=== PATIENT | female | born 1930 | race Caucasian/White ===

== ENCOUNTER 2018-05-23 07:35 | Inpatient (IN) | payer OTHER ==
--- NOTE | 2018-05-23 07:47 | PDOC ---
History of Present Illness - General Chief Complaint: SIRS, Suspected/Possible Stated Complaint: FEVER Time Seen by Provider: 05/23/18 07:35 - History of Present Illness Initial Comments: 05/23/18 07:49 Ms. Steele is an 87 yo female w/ pmh of CAD, anemia, dementia (nonverbal at baseline), HTN, HLD, who presents for evaluation of subjective fevers at home and increased respiratory rate. Family reports they noticed patient to be increasingly agitated last week prompting them to see evaluation from patient's PCP (Dr. Harrington). Patient was noted to have UTI and started on macrobid BID . Patient presents today as fevers have continued and today they noticed her breathing rate to increase. The patient denies chest pain, shortness of breath, headache and dizziness. Denies fever, chills, nausea, vomit, diarrhea and constipation. Past History - Past Medical History Allergies/Adverse Reactions: Allergies Allergy/AdvReac Type Severity Reaction Status Date / Time No Known Allergies Allergy Verified 12/30/15 20:40 Home Medications: Ambulatory Orders Metoprolol Succinate [Toprol XL -] 25 mg PO DAILY 01/15/14 Alprazolam 0.5 mg PO TID 12/30/15 Levetiracetam [Keppra] 500 mg PO BID 12/30/15 Nystatin Cream [Mycostatin Cream -] 1 applic TP BID #60 grams 01/01/16 levETIRAcetam [Keppra -] 250 mg PO BID #180 tablet 01/01/16 Anemia: Yes Cardiac Disorders: Yes Dementia: Yes GI Disorders: Yes Disorders: Yes (UTI 02/12/13) HTN: Yes Hypercholesterolemia: Yes Seizures: Yes - Surgical History Abdominal Surgery: Yes GI Surgery: Yes (reversal of colostomy in 2006) - Immunization History Td Vaccination: Yes Immunization Up to Date: Yes - Suicide/Smoking/Psychosocial Hx Smoking Status: No Smoking History: Never smoked Years of Tobacco Use: 0 Have you smoked in the past 12 months: No Number of Cigarettes Smoked Daily: 0 Cigars Per Day: 0 Hx Alcohol Use: No Drug/Substance Use Hx: No Substance Use Type: None Hx Substance Use Treatment: No Review of Systems - Review of Systems Comments:: 05/23/18 08:03 GENERAL/CONSTITUTIONAL: +Generalized agitation with fever as described. No weakness. HEAD, EYES, EARS, NOSE AND THROAT: No change in vision. No ear pain or discharge. No sore throat. CARDIOVASCULAR: No chest pain or shortness of breath RESPIRATORY: +Increased respiratory rate. No cough, wheezing, or hemoptysis. GASTROINTESTINAL: No nausea, vomiting, diarrhea or constipation. GENITOURINARY: No dysuria, frequency, or change in urination. MUSCULOSKELETAL: No joint or muscle swelling or pain. No neck or back pain. SKIN: No rash NEUROLOGIC: No headache, vertigo, loss of consciousness, or change in strength/ sensation. ENDOCRINE: No increased thirst. No abnormal weight change HEMATOLOGIC/LYMPHATIC: No anemia, easy bleeding, or history of blood clots. ALLERGIC/IMMUNOLOGIC: No hives or skin allergy. *Physical Exam - Physical Exam Comments: 05/23/18 08:05 GENERAL: +Mildly agitated. Awake and oriented, in no acute distress HEAD: No signs of trauma, normocephalic, atraumatic EYES: PERRLA, EOMI, sclera anicteric, conjunctiva clear ENT: Auricles normal inspection, hearing grossly normal, nares patent, oropharynx clear without exudates. Moist mucosa NECK: Normal ROM, supple, no lymphadenopathy, JVD, or masses LUNGS: No distress, speaks full sentences, clear to auscultation bilaterally HEART: Regular rate and rhythm, normal S1 and S2, no murmurs, rubs or gallops, peripheral pulses normal and equal bilaterally. ABDOMEN: Soft, nontender, normoactive bowel sounds. No guarding, no rebound. No masses EXTREMITIES: Normal inspection, Normal range of motion, no edema. No clubbing or cyanosis. NEUROLOGICAL: +Unable to assess. SKIN: Warm, Dry, normal turgor, no rashes or lesions noted. ED Treatment Course - LABORATORY CBC & Chemistry Diagram: 05/23/18 08:30 05/23/18 08:30 Medical Decision Making - Medical Decision Making 05/23/18 09:02 Ms. Steele is an 87 yo female w/ pmh as described who presents for evaluation of symptoms concerning for sepsis. 05/23/18 10:57 Workup reveals elevated lactate; patient septic; receiving IV hydration. Vanc/ Zosyn given for prophylaxis. 05/23/18 11:09 Labs otherwise grossly wnl. Patient pending repeat lactate. Patient admitted for further hydration and IV ABX. Laboratory Results - last 24 hr 05/23/18 05/23/18 05/23/18 08:30 08:30 08:30 WBC 7.9 RBC 4.42 Hgb 12.9 Hct 37.8 MCV 85.4 MCH 29.2 MCHC 34.2 RDW 13.3 Plt Count 184 MPV 8.2 D Absolute Neuts (auto) 6.6 Neutrophils % 83.8 H Lymphocytes % 6.4 L D Monocytes % 8.6 Eosinophils % 1.0 D Basophils % 0.2 Nucleated RBC % 0 PT with INR INR PTT (Actin FS) VBG pH 7.36 POC VBG pCO2 43.3 POC VBG pO2 22.2 L Mixed VBG HCO3 23.6 Sodium 134 L Potassium 4.6 Chloride 101 Carbon Dioxide 23 Anion Gap 10 BUN 22 H Creatinine 1.1 Creat Clearance w eGFR 47.09 Random Glucose 106 Lactic Acid Calcium 8.5 Total Bilirubin 0.7 AST 28 ALT 21 Alkaline Phosphatase 113 Troponin I < 0.02 Total Protein 6.8 Albumin 2.8 L Urine Color Urine Appearance Urine pH Ur Specific [place] Urine Protein Urine Glucose (UA) Urine Ketones Urine Blood Urine Nitrite Urine Bilirubin Urine Urobilinogen Ur Leukocyte Esterase Urine WBC (Auto) Urine RBC (Auto) Ur Epithelial Cells Urine Bacteria Hyaline Casts Urine Mucus 05/23/18 05/23/18 05/23/18 08:30 08:30 08:30 WBC RBC Hgb Hct MCV MCH MCHC RDW Plt Count MPV Absolute Neuts (auto) Neutrophils % Lymphocytes % Monocytes % Eosinophils % Basophils % Nucleated RBC % PT with INR 12.20 INR 1.03 PTT (Actin FS) 25.6 VBG pH POC VBG pCO2 POC VBG pO2 Mixed VBG HCO3 Sodium Potassium Chloride Carbon Dioxide Anion Gap BUN Creatinine Creat Clearance w eGFR Random Glucose Lactic Acid 2.6 H* Calcium Total Bilirubin AST ALT Alkaline Phosphatase Troponin I Total Protein Albumin Urine Color Dk yellow Urine Appearance Cloudy Urine pH 5.0 Ur Specific [place] 1.016 Urine Protein Negative Urine Glucose (UA) Negative Urine Ketones Negative Urine Blood Negative Urine Nitrite Negative Urine Bilirubin Negative Urine Urobilinogen Negative Ur Leukocyte Esterase Trace Urine WBC (Auto) 5 Urine RBC (Auto) 2 Ur Epithelial Cells Few Urine Bacteria Rare Hyaline Casts 6 Urine Mucus Rare *DC/Admit/Observation/Transfer Diagnosis at time of Disposition: Sepsis Qualifiers: Sepsis type: sepsis due to unspecified organism Qualified Code(s): A41.9 - Sepsis, unspecified organism - Discharge Dispostion Decision to Admit order: Yes - Referrals - Patient Instructions - Post Discharge Activity
[2018-05-23] MEDS ORDERED: VANCOMYCIN 1 GM in D5W (PRE-DOCKED) 1,000 MG/250 ML IVPB ONE (07:48)
[2018-05-23] MEDS ORDERED: PIPERACILLIN/TAZOB 3.375 GM 3.375 GM in DEXTROSE 5%-WATER - 50 ML IVPB ONE (07:48)
--- NOTE | 2018-05-23 07:58 | PDOC ---
History of Present Illness - General Chief Complaint: SIRS, Suspected/Possible Stated Complaint: FEVER Time Seen by Provider: 05/23/18 07:35 Past History - Past Medical History Allergies/Adverse Reactions: Allergies Allergy/AdvReac Type Severity Reaction Status Date / Time No Known Allergies Allergy Verified 12/30/15 20:40 Home Medications: Ambulatory Orders Metoprolol Succinate [Toprol XL -] 25 mg PO DAILY 01/15/14 Alprazolam 0.5 mg PO TID 12/30/15 Levetiracetam [Keppra] 500 mg PO BID 12/30/15 Nystatin Cream [Mycostatin Cream -] 1 applic TP BID #60 grams 01/01/16 levETIRAcetam [Keppra -] 250 mg PO BID #180 tablet 01/01/16 Anemia: Yes Cardiac Disorders: Yes Dementia: Yes GI Disorders: Yes Disorders: Yes (UTI 02/12/13) HTN: Yes Hypercholesterolemia: Yes Seizures: Yes - Surgical History Abdominal Surgery: Yes GI Surgery: Yes (reversal of colostomy in 2006) - Immunization History Td Vaccination: Yes Immunization Up to Date: Yes - Suicide/Smoking/Psychosocial Hx Smoking Status: No Smoking History: Never smoked Years of Tobacco Use: 0 Have you smoked in the past 12 months: No Number of Cigarettes Smoked Daily: 0 Cigars Per Day: 0 Hx Alcohol Use: No Drug/Substance Use Hx: No Substance Use Type: None Hx Substance Use Treatment: No
--- NOTE | 2018-05-23 08:18 | PDOC ---
Attending Attestation - Resident Resident Name: Isaac Augustineorn - ED Attending Attestation I have performed the following: I have examined & evaluated the patient, The case was reviewed & discussed with the resident, I agree w/resident's findings & plan - HPI HPI: 05/23/18 08:14 87-year-old female with history of dementia, contractures and bedbound, seizures , frequent UTIs well cared for at home with last admission here in 2016 presents from home with UTI. Patient began becoming more irritable per family, labs and urinalysis were ordered by her PCP Dr. Harrington revealing a UTI. She was started on Macrobid and has completed 3 days but continued having measured fevers yesterday and having decreased to no oral intake with persistent malodorous urine so EMS was activated today. - Physicial Exam PE: 05/23/18 08:15 Low-grade fever, borderline tachycardia, borderline tachypnea, O2 sats otherwise within normal limits Alert, nonverbal, contractures. No respiratory distress. Oropharynx clear, dry mucosa Heart is regular with occasional premature beats, 2 to 3/6 systolic ejection murmur Course breath sounds at the bases, question right worse than left Suprapubic discomfort to palpation, otherwise soft/nondistended, no guarding or rebound No extremity swelling or cellulitis Good distal perfusion - Critical Care Time Total Critical Care Time: 30 Critical Care Statement: The care of this patient involved high complexity decision making to prevent further life threatening deterioration of the patient 's condition and/or to evaluate & treat vital organ system(s) failure or risk of failure. - Medical Decision Making 05/23/18 08:16 87-year-old female that bout with multiple medical problems and history of UTI recently diagnosed UTI failing outpatient oral antibiotics, here with sepsis/ borderline hypotension, likely secondary to UTI. Sepsis protocol initiated Antipyretics, IV fluids, antibiotics Will need admission given deviation from baseline and early sepsis Heart Score/ECG Review #1 ECG reviewed & interpreted by me at: 09:26 General ECG Interpretation: Sinus Rhythm (slight tachy at 109 with PACs noted), Normal Intervals (MI 210, qtc 460), No acute ischemic changes
[2018-05-23 09:02] LABS: VENOUS PC02 43.3 mmHg (38-52); VENOUS PH 7.36 (7.32-7.42); VENOUS PO2 22.2 mmHg (28-48)
[2018-05-23 09:11] LABS: BASO % 0.2 % (0-2.0); HEMATOCRIT 37.8 % (32.4-45.2); HEMOGLOBIN 12.9 GM/dL (10.7-15.3); LYMPH % 6.4 % (8-40); MCH 29.2 pg (25.7-33.7); MCHC 34.2 g/dl (32.0-36.0); MEAN CELL VOLUME 85.4 fl (80-96); MEAN PLT VOLUME 8.2 fl (7.5-11.1); MONO % 8.6 % (3.8-10.2); NEUT % 83.8 % (42.8-82.8); PLATELET COUNT 184 K/MM3 (134-434); RBC 4.42 M/mm3 (3.60-5.2); RDW 13.3 % (11.6-15.6); WHITE BLOOD COUNT 7.9 K/mm3 (4.0-10.0)
[2018-05-23] MEDS ORDERED: VANCOMYCIN 1 GRAM (PRE-DOCKED) 1,000 MG/250 ML BAG IVPB ONE (09:14)
[2018-05-23] MEDS ORDERED: PIPERACILLIN/TAZOB 3.375 GM 3.375 GM/50 ML BAG IVPB ONE (09:15)
[2018-05-23 09:20] LABS: INR 1.03 (0.83-1.09); PROTHROMBIN TIME (PATIENT) 12.2 SEC (9.7-13.0)
[2018-05-23 09:22] LABS: ACTIVATED PTT 25.6 SECONDS (25.2-36.5)
[2018-05-23 09:45] LABS: ALBUMIN 2.8 g/dl (3.4-5.0); ALK PHOS 113 U/L (45-117); ANION GAP 10 MMOL/L (8-16); BILIRUBIN,TOTAL 0.7 mg/dL (0.2-1); BLOOD UREA NITROGEN 22 mg/dL (7-18); CALCIUM 8.5 mg/dL (8.5-10.1); CHLORIDE 101 mmol/L (98-107); CO2 23 mmol/L (21-32); CREATININE 1.1 mg/dL (0.55-1.3); GLUCOSE,RANDOM 106 mg/dL (74-106); POTASSIUM 4.6 mmol/L (3.5-5.1); SGOT/AST 28 U/L (15-37); SGPT/ALT 21 U/L (13-61); SODIUM 134 mmol/L (136-145); TOT PROT 6.8 g/dl (6.4-8.2)
[2018-05-23 09:53] LABS: URINE APPEARANCE CLOUDY; URINE BILIRUBIN NEGATIVE (<2.0 mg/dL); URINE GLUCOSE (UA) NEGATIVE (NEGATIVE); URINE KETONE NEGATIVE (NEGATIVE); URINE LEUK ESTERASE TRACE (NEGATIVE); URINE NITRITE NEGATIVE (NEGATIVE); URINE PROTEIN NEGATIVE (NEGATIVE); URINE UROBILINOGEN NEGATIVE mg/dL (0.2-1.0)
[2018-05-23 09:58] LABS: URINE COLOR DK YELLOW
[2018-05-23] MEDS ORDERED: SODIUM CHLORIDE 1,000 ML IV STA (10:24)
[2018-05-23 10:27] LABS: EPI CELLS FEW /HPF (FEW); URINE BACTERIA RARE /hpf (NONE SEEN); URINE HYALINE CAST 6 /lpf; URINE MUCUS RARE
[2018-05-23] MEDS ORDERED: SODIUM CHLORIDE 1,000 ML IV SCH ×2 (11:45→21:17)
--- NOTE | 2018-05-23 11:51 | HP ---
Admitting History and Physical - Primary Care Physician PCP: Braden Harrington - Admission Chief Complaint: sepsis History of Present Illness: 87 year old female pmh of dementia, htn, hld,and seizure brought in from home for fevers. Pt gets routine blood work done every 4 months at home, pt was diagnosed with UTI outpt and started on macrobid by PCP on 05/20. UC outpt grew ecoli resistant to cipro/levaquin. DIAMOND WHEEL MOLDER reports noticing significantly reduced po intake, increased respiratory rate, fevers since yesterday. Pt is unable to provide history as she is non-verbal. 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 Cardiovascular: Yes: HTN, Hyperlipdemia Gastrointestinal: Yes: Diverticulitis Renal/: Yes: UTI Musculoskeletal: Yes: Other (All four extremities contracted) - Past Surgical History Past Surgical History: Yes: Colostomy ((Reversed)) - Smoking History Smoking history: Never smoked Have you smoked in the past 12 months: No Aproximately how many cigarettes per day: 0 - Alcohol/Substance Use Hx Alcohol Use: No History of Substance Use: reports: None - Social History ADL: Support Services History of Recent Travel: No Home Medications - Allergies Allergies/Adverse Reactions: Allergies Allergy/AdvReac Type Severity Reaction Status Date / Time No Known Allergies Allergy Verified 12/30/15 20:40 - Home Medications Home Medications: Ambulatory Orders Metoprolol Succinate [Toprol XL -] 25 mg PO BID 01/15/14 Alprazolam 0.5 mg PO TID 12/30/15 Nystatin Cream [Mycostatin Cream -] 1 applic TP BID #60 grams 01/01/16 Aspirin 81 mg PO DAILY 05/23/18 levETIRAcetam [Keppra -] 750 mg PO BID 05/23/18 Family Disease History - Family Disease History Family History: Unable to Obtain (2/2 dementia) Review of Systems Findings/Remarks: as per hpi Physical Examination Vital Signs: Vital Signs Temperature 99.8 F H 05/23/18 07:42 Pulse Rate 102 H 05/23/18 07:42 Respiratory Rate 22 H 05/23/18 07:42 Blood Pressure 91/55 L 05/23/18 07:42 O2 Sat by Pulse Oximetry (%) 98 05/23/18 07:42 Constitutional: Yes: Well Nourished, No Distress, Calm Cardiovascular: Yes: Regular Rate and Rhythm, Murmur Respiratory: Yes: Regular, CTA Bilaterally, On Nasal O2. No: Accessory Muscle Use, SOB, Tachypnea, Wheezes Gastrointestinal: Yes: WNL, Normal Bowel Sounds, Soft. No: Distention, Tenderness Renal/: Yes: Incontinence Edema: No Neurological: Yes: Alert, Confusion, Pre-Existing Deficit Psychiatric: Yes: Alert Labs: CBC, BMP 05/23/18 08:30 05/23/18 08:30 Problem List - Problems (1) Sepsis Assessment/Plan: febrile, tachycardic, hypotensive, tachypneic w/ ams, lactic acidosis suspect 2/2 UTI- ecoli, based on outpt UC repeat lactic acid improved IVF ceftriaxone 2g blood/urine cultures pending Code(s): A41.9 - SEPSIS, UNSPECIFIED ORGANISM Qualifiers: Sepsis type: Escherichia coli Qualified Code(s): A41.51 - Sepsis due to Escherichia coli [E. coli] (2) UTI (urinary tract infection) Assessment/Plan: as above Code(s): N39.0 - URINARY TRACT INFECTION, SITE NOT SPECIFIED Qualifiers: Urinary tract infection type: acute cystitis Hematuria presence: without hematuria Qualified Code(s): N30.00 - Acute cystitis without hematuria (3) Metabolic encephalopathy Assessment/Plan: treat underlying and monitor Code(s): G93.41 - METABOLIC ENCEPHALOPATHY (4) OMEGA (acute kidney injury) Assessment/Plan: 2/2 sepsis IVF monitor Code(s): N17.9 - ACUTE KIDNEY FAILURE, UNSPECIFIED (5) Lactic acidosis Assessment/Plan: improved Code(s): E87.2 - ACIDOSIS (6) Hypertension Assessment/Plan: hypotensive hold antihypertensive meds Code(s): I10 - ESSENTIAL (PRIMARY) HYPERTENSION Qualifiers: Hypertension type: essential hypertension Qualified Code(s): I10 - Essential (primary) hypertension (7) Dementia Assessment/Plan: pt non verbal, bed-bound dysphagia pureed diet Code(s): F03.90 - UNSPECIFIED DEMENTIA WITHOUT BEHAVIORAL DISTURBANCE Qualifiers: Dementia behavioral disturbance: without behavioral disturbance (8) Seizure disorder Assessment/Plan: chronic continue keppra Code(s): G40.909 - EPILEPSY, UNSP, NOT INTRACTABLE, WITHOUT STATUS EPILEPTICUS
[2018-05-23] MEDS: CEFTRIAXONE 2 GM in DEXTROSE 5%-WATER 100 ML IVPB SCH (13:41)
[2018-05-23] MEDS ORDERED: ALPRAZolam 0.25 MG TABLET PO PRN (14:35)
--- NOTE | 2018-05-23 18:11 | EKG ---
Test Reason : Blood Pressure : / mmHG Vent. Rate : 109 BPM Atrial Rate : 109 BPM P-R Int : 210 ms QRS Dur : 076 ms QT Int : 342 ms P-R-T Axes : 065 -03 023 degrees QTc Int : 460 ms SINUS TACHYCARDIA WITH 1ST DEGREE A-V BLOCK WITH PREMATURE SUPRAVENTRICULAR COMPLEXES ANTERIOR INFARCT (CITED ON OR BEFORE 30-DEC-2015) ABNORMAL ECG Confirmed by MD DEMIAN, MYRNA ([id number]) on 05/23/2018 6:10:56 PM Referred By: Confirmed By:MYRNA ARCINIEGA MD
--- NOTE | 2018-05-23 21:26 | HOSP ---
Subjective - Review of Symptoms Subjective: Was called to evaluate the patient due to fluid order. The patient was placed on NS @ 125 as she was septic and hypotensive in the ED. On evaluation, the patient had a bp in the 140's/90's and had crackles b/l at the bases. Patient had normal systolic fxn on echo from 2013, but given the presence of crackles in this 87 y/o bed bound patient with a BP in the safe range, elected to hold fluids overnight and resume them at 60ml/hr in the AM. Patient had Cr. of 1.1 on admission, which does not appear to be significantly elevated based off of records from 2016. Physical Examination Vital Signs: Vital Signs Temperature 98.6 F 05/23/18 20:48 Pulse Rate 100 H 05/23/18 20:48 Respiratory Rate 18 05/23/18 20:48 Blood Pressure 140/95 05/23/18 20:48 O2 Sat by Pulse Oximetry (%) 98 05/23/18 18:02 Labs: CBC, BMP 05/23/18 08:30 05/23/18 08:30 Visit type - Emergency Visit Emergency Visit: Yes ED Registration Date: 05/23/18 Care time: The patient presented to the Emergency Department on the above date and was hospitalized for further evaluation of their emergent condition. - New Patient This patient is new to me today: Yes Date on this admission: 05/23/18 - Critical Care Critical Care patient: No
[2018-05-23] MEDS: levETIRAcetam 500 MG TABLET (FP) PO SCH (21:52)
[2018-05-23] MEDS ORDERED: levETIRAcetam 250 MG TABLET (FP) PO SCH (22:00)
[2018-05-24] MEDS ORDERED: ACETAMINOPHEN 325 MG TABLET (FP) PO ONE (01:10)
[2018-05-24 07:32] LABS: BASO % 0.4 % (0-2.0); EOS % 2.9 % (0-4.5); HEMATOCRIT 32.7 % (32.4-45.2); LYMPH % 12.5 % (8-40); MCH 29.5 pg (25.7-33.7); MCHC 33.7 g/dl (32.0-36.0); MEAN CELL VOLUME 87.6 fl (80-96); MEAN PLT VOLUME 7.8 fl (7.5-11.1); MONO % 18.3 % (3.8-10.2); NEUT % 65.9 % (42.8-82.8); PLATELET COUNT 142 K/MM3 (134-434); RBC 3.74 M/mm3 (3.60-5.2); RDW 13.5 % (11.6-15.6); WHITE BLOOD COUNT 4.3 K/mm3 (4.0-10.0)
[2018-05-24 08:01] LABS: ALBUMIN 2.3 g/dl (3.4-5.0); ALK PHOS 89 U/L (45-117); ANION GAP 8 MMOL/L (8-16); BILIRUBIN,TOTAL 0.3 mg/dL (0.2-1); BLOOD UREA NITROGEN 19 mg/dL (7-18); CALCIUM 7.9 mg/dL (8.5-10.1); CHLORIDE 110 mmol/L (98-107); CO2 23 mmol/L (21-32); CREATININE 0.8 mg/dL (0.55-1.3); GLUCOSE,RANDOM 89 mg/dL (74-106); MAGNESIUM 2.3 mg/dL (1.8-2.4); POTASSIUM 3.7 mmol/L (3.5-5.1); SGOT/AST 9 U/L (15-37); SGPT/ALT 14 U/L (13-61); SODIUM 142 mmol/L (136-145); TOT PROT 5.4 g/dl (6.4-8.2)
[2018-05-24] MEDS ORDERED: FLU VACCINE QUAD 60 MCG/0.5 ML (MDV 18-19) IM ONE (10:00)
[2018-05-24 10:08] LABS: N-TERMINAL BNP 944.5 pg/ml (5-450)
[2018-05-24] MEDS ORDERED: DOCUSATE SODIUM 100 MG CAPSULE (FP) PO SCH (10:30)
--- NOTE | 2018-05-24 10:30 | PN ---
Progress Note, Physician Chief Complaint: Pt lying in bed in no acute distress. appears more alert than yesterday. Eating breakfast. Unable to obtain as pt is non verbal - Current Medication List Current Medications: Active Medications Alprazolam (Xanax -) 0.5 mg PO Q8H PRN PRN Reason: ANXIETY Docusate Sodium (Colace -) 300 mg PO DAILY GISSEL Enoxaparin Sodium (Lovenox -) 30 mg SQ DAILY GISSEL Ceftriaxone Sodium 2 gm/ (Dextrose) 100 mls @ 100 mls/hr IVPB DAILY GISSEL; Protocol Last Admin: 05/23/18 13:41 Dose: 100 mls/hr Sodium Chloride (Normal Saline -) 1,000 mls @ 60 mls/hr IV ASDIR GISSEL Stop: 05/24/18 13:56 Levetiracetam (Keppra -) 500 mg PO BID GISSEL Last Admin: 05/23/18 21:52 Dose: 500 mg Senna (Senna -) 2 tab PO HS GISSEL - Objective Vital Signs: Vital Signs Temperature 97.8 F 05/24/18 09:16 Pulse Rate 106 H 05/24/18 09:16 Respiratory Rate 20 05/24/18 09:16 Blood Pressure 124/69 05/24/18 09:16 O2 Sat by Pulse Oximetry (%) 95 05/23/18 21:00 Constitutional: Yes: No Distress, Calm Cardiovascular: Yes: Regular Rate and Rhythm, Murmur Respiratory: Yes: Regular, Cough, Diminished, On Nasal O2, Rales (bibasilar). No: Accessory Muscle Use, SOB, Tachypnea, Wheezes Gastrointestinal: Yes: WNL, Normal Bowel Sounds, Soft. No: Distention, Tenderness Genitourinary: Yes: Incontinence Extremities: Yes: Deformity (contracted) Edema: No Neurological: Yes: Alert, Confusion Psychiatric: Yes: Alert Labs: CBC, BMP 05/24/18 06:00 05/24/18 06:00 INR, PTT INR 1.03 (0.83-1.09) 05/23/18 08:30 Assessment/Plan (1) Sepsis Assessment/Plan: improving febrile overnight suspect 2/2 UTI- ecoli, based on outpt UC however will need to consider possible aspiration, discussed w/ HCP/PROTECTIVE SIGNAL REPAIRER, who reports noticing coughing w/ eating MBS- moderate impairment, continue dysphagia pureed diet, downgrade if unable to tolerate speech eval appreciated IVF ceftriaxone 2g blood/urine cultures neg Code(s): A41.9 - SEPSIS, UNSPECIFIED ORGANISM Qualifiers: Sepsis type: Escherichia coli Qualified Code(s): A41.51 - Sepsis due to Escherichia coli [E. coli] (2) UTI (urinary tract infection) Assessment/Plan: as above Code(s): N39.0 - URINARY TRACT INFECTION, SITE NOT SPECIFIED Qualifiers: Urinary tract infection type: acute cystitis Hematuria presence: without hematuria Qualified Code(s): N30.00 - Acute cystitis without hematuria (3) Metabolic encephalopathy Assessment/Plan: improved Code(s): G93.41 - METABOLIC ENCEPHALOPATHY (4) OMEGA (acute kidney injury) Assessment/Plan: improved encourage po intake Code(s): N17.9 - ACUTE KIDNEY FAILURE, UNSPECIFIED (5) Lactic acidosis Assessment/Plan: improved Code(s): E87.2 - ACIDOSIS (6) Hypertension Assessment/Plan: controlled continue metoprolol Code(s): I10 - ESSENTIAL (PRIMARY) HYPERTENSION Qualifiers: Hypertension type: essential hypertension Qualified Code(s): I10 - Essential (primary) hypertension (7) Dementia Assessment/Plan: pt non verbal, bed-bound dysphagia pureed diet Code(s): F03.90 - UNSPECIFIED DEMENTIA WITHOUT BEHAVIORAL DISTURBANCE Qualifiers: Dementia behavioral disturbance: without behavioral disturbance (8) Seizure disorder Assessment/Plan: chronic continue keppra Code(s): G40.909 - EPILEPSY, UNSP, NOT INTRACTABLE, WITHOUT STATUS EPILEPTICUS (9) Hypokalemia Assessment/Plan: mild kcl 40meq po x 1 monitor bmp Code(s): E87.6 - HYPOKALEMIA (10) Cough Assessment/Plan: as above chest xray am- unchanged Code(s): R05 - COUGH Dispo: home w/ PROTECTIVE SIGNAL REPAIRER. Discussed w/ HCP regarding pt's status, he reports pt is DNR /DNI
[2018-05-24] MEDS ORDERED: POTASSIUM CHLORIDE TABS 20 MEQ TABLET.ER (FP) PO ONE (10:45)
[2018-05-24] MEDS ORDERED: DEXTROSE 5%-WATER 100 ML IVPB ONE (10:53)
[2018-05-24] MEDS: CEFTRIAXONE 2 GM in DEXTROSE 5%-WATER 100 ML IVPB SCH (11:01)
[2018-05-24] MEDS: levETIRAcetam 500 MG TABLET (FP) PO SCH ×2 (11:03→21:48)
--- NOTE | 2018-05-24 11:21 | CONSULT ---
Admitting History and Physical - Primary Care Physician PCP: Yolande Bonilla - Admission History of Present Illness: Per EMR: History of Present Illness: 87 year old female pmh of dementia, htn, hld,and seizure brought in from home for fevers. Pt gets routine blood work done every 4 months at home, pt was diagnosed with UTI outpt and started on macrobid by PCP on 05/20. UC outpt grew ecoli resistant to cipro/levaquin. TAPE MAKER reports noticing significantly reduced po intake, increased respiratory rate, fevers . Pt is unable to provide history as she is non-verbal. Selected Entries 05/24/18 05/24/18 05/24/18 01:09 06:00 09:16 Temperature 100.7 F H 97.9 F 97.8 F Laboratory Tests 05/24/18 06:00 WBC 4.3 Last seen by me in 2015, at which time she demonstrated signs of aspiration, and was placed on puree/nectar. Pt has been tolerating puree and thin water with the same 24 hr TAPE MAKER since, without recurrent congestion and with weight gain. She reports that she does cough while drinking. Pt is DNR/DNI and family does not want TF. 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 Cardiovascular: Yes: HTN, Hyperlipdemia Gastrointestinal: Yes: Diverticulitis Renal/: Yes: UTI Musculoskeletal: Yes: Other (All four extremities contracted) - Past Surgical History Past Surgical History: Yes: Colostomy ((Reversed)) - Advance Directives Advance Directives: Yes: Health Care Proxy - Smoking History Smoking history: Never smoked Have you smoked in the past 12 months: No Aproximately how many cigarettes per day: 0 - Alcohol/Substance Use Hx Alcohol Use: No History of Substance Use: reports: None - Social History ADL: Support Services History of Recent Travel: No History - Admission Reason For Visit: SEPSIS - Diagnostics X-ray: Report Reviewed - General Mental Status: Confused Attention: Mild Impairment Ability to Follow Directions: Poor Head/Neck Control: Needs Assist - Hearing Hearing: Impaired Hearing Aide: No With Patient: No Speech Evaluation - Communication Primary Language: AZERI Communication: Yes: Non-Communicable Oral Expression Ability: Yes: Non-Verbal (occasionally smile/vocalization.) - Speech Characteristics Voice Loudness: Normal Voice Pitch: Yes: Normal Voice Phonatory-based Quality: Yes: Normal Articulation: Yes: Precise - Swallow Evaluation/Bedside Assessment Current Nutritional Intake: Dysphagia Pureed, [place] Textured Liquids Dentition: Yes: Edentulous Facial Symmetry at Rest: Symmetrical Lingual Movement: Symmetric Laryngeal Movement: Labored,delay initiation Rate of Intake: Slow/Holding (inability to achieve bilabial closure to drink from a cup, and better but limited with spoon use.) Labial Seal: Impaired Bilaterally Oral Prep Time: Increased Pocketing: Clears Independently Timing of Swallow: Delayed Coughing/Throat Clear: Yes (thin and nectar thick liquid) Recommendations - Speech Evaluation, Impression/Plan Impression: Aspiration suspected on thin liquid sec to impoaired oral control and beth-pharyngeal transfer. Spillage over BOT with aspiration before swallow inbitiated suspected . - Disposition Discharge to: Home with Assist - Dysphagia Impressions/Plan Swallowing Skills: Impaired Dysphagia Impressions: Mild Impairment, Moderate Impairment *Silent aspiration: cannot be R/O at bedside Recommendations: Modified Barium Swallow, Other (Hold lunch until MBS performed today)
[2018-05-24] MEDS ORDERED: SODIUM CHLORIDE 1,000 ML IV SCH (11:45)
[2018-05-24] MEDS ORDERED: PT OWN MED DRAWER 7, Y5N ONE (13:40)
[2018-05-24] MEDS: POLYETHYLENE GLYCOL 3350 119 GM BTL PO SCH (15:18)
[2018-05-24] MEDS: metoPROLOL SUCCINATE 25 MG TAB.SR.24H (FP) PO SCH ×2 (15:18→21:48)
[2018-05-24] MEDS: ENOXAPARIN NA (PORCINE) 30 MG/0.3 ML DISP.SYRIN SQ SCH (15:19)
[2018-05-24] MEDS: SENNOSIDES 8.6MG TABLET (FP) PO SCH (21:47)
[2018-05-25 07:41] LABS: BASO % 0.7 % (0-2.0); EOS % 3.7 % (0-4.5); HEMATOCRIT 32.3 % (32.4-45.2); HEMOGLOBIN 10.7 GM/dL (10.7-15.3); LYMPH % 17.2 % (8-40); MCH 29.2 pg (25.7-33.7); MCHC 33.2 g/dl (32.0-36.0); MEAN CELL VOLUME 87.7 fl (80-96); MEAN PLT VOLUME 7.6 fl (7.5-11.1); MONO % 21.9 % (3.8-10.2); NEUT % 56.5 % (42.8-82.8); PLATELET COUNT 140 K/MM3 (134-434); RBC 3.68 M/mm3 (3.60-5.2); RDW 13.1 % (11.6-15.6); WHITE BLOOD COUNT 3.7 K/mm3 (4.0-10.0)
[2018-05-25 09:00] LABS: ANION GAP 9 MMOL/L (8-16); BLOOD UREA NITROGEN 13 mg/dL (7-18); CALCIUM 8.1 mg/dL (8.5-10.1); CHLORIDE 110 mmol/L (98-107); CO2 22 mmol/L (21-32); CREATININE 0.7 mg/dL (0.55-1.3); GLUCOSE,RANDOM 102 mg/dL (74-106); POTASSIUM 3.9 mmol/L (3.5-5.1); SODIUM 142 mmol/L (136-145)
--- NOTE | 2018-05-25 09:41 | PN ---
Progress Note, Physician Chief Complaint: Pt lying in bed in no acute distress. alert, eating breakfast. BEHAVIORAL HEALTH THERAPIST at bedside, pt at baseline. Unable to obtain as pt is non verbal - Current Medication List Current Medications: Active Medications Alprazolam (Xanax -) 0.5 mg PO Q8H PRN PRN Reason: ANXIETY Enoxaparin Sodium (Lovenox -) 30 mg SQ DAILY [facility] Last Admin: 05/24/18 15:19 Dose: 30 mg Ceftriaxone Sodium 2 gm/ (Dextrose) 100 mls @ 100 mls/hr IVPB DAILY [facility]; Protocol Last Admin: 05/24/18 11:01 Dose: 100 mls/hr Sodium Chloride (Normal Saline -) 1,000 mls @ 50 mls/hr IV ASDIR [facility] Stop: 05/25/18 11:34 Last Admin: 05/24/18 15:24 Dose: 50 mls/hr Levetiracetam (Keppra -) 500 mg PO BID [facility] Last Admin: 05/24/18 21:48 Dose: 500 mg Metoprolol Succinate (Toprol Xl -) 25 mg PO BID [facility] Last Admin: 05/24/18 21:48 Dose: 25 mg Polyethylene Glycol (Miralax (For Daily Use) -) 17 gm PO DAILY [facility] Last Admin: 05/24/18 15:18 Dose: 17 gm Senna (Senna -) 2 tab PO HS [facility] Last Admin: 05/24/18 21:47 Dose: 2 tab - Objective Vital Signs: Vital Signs Temperature 98.7 F 05/25/18 09:23 Pulse Rate 93 H 05/25/18 09:23 Respiratory Rate 20 05/25/18 09:23 Blood Pressure 126/80 05/25/18 09:23 O2 Sat by Pulse Oximetry (%) 96 05/24/18 21:00 Constitutional: Yes: Well Nourished, No Distress, Calm Cardiovascular: Yes: Regular Rate and Rhythm, Murmur Respiratory: Yes: Regular, Diminished, On Nasal O2, Rales (bibasilar). No: Accessory Muscle Use, Rhonchi, Tachypnea, Wheezes Gastrointestinal: Yes: WNL, Normal Bowel Sounds, Soft. No: Distention, Tenderness Genitourinary: Yes: Incontinence Edema: No Neurological: Yes: Alert, Confusion Psychiatric: Yes: Alert Labs: CBC, BMP 05/25/18 07:00 01/17/19 07:00 INR, PTT INR 1.03 (0.83-1.09) 05/23/18 08:30 Assessment/Plan (1) Sepsis Assessment/Plan: improving suspect 2/2 UTI- ecoli, based on outpt UC MBS- moderate impairment, continue dysphagia pureed diet, downgrade if unable to tolerate speech eval appreciated ceftriaxone day 3 transition to po tmrw when afebrile for 48hrs blood/urine cultures neg Code(s): A41.9 - SEPSIS, UNSPECIFIED ORGANISM Qualifiers: Sepsis type: Escherichia coli Qualified Code(s): A41.51 - Sepsis due to Escherichia coli [E. coli] (2) UTI (urinary tract infection) Assessment/Plan: as above Code(s): N39.0 - URINARY TRACT INFECTION, SITE NOT SPECIFIED Qualifiers: Urinary tract infection type: acute cystitis Hematuria presence: without hematuria Qualified Code(s): N30.00 - Acute cystitis without hematuria (3) Metabolic encephalopathy Assessment/Plan: improved Code(s): G93.41 - METABOLIC ENCEPHALOPATHY (4) OMEGA (acute kidney injury) Assessment/Plan: improved encourage po intake Code(s): N17.9 - ACUTE KIDNEY FAILURE, UNSPECIFIED (5) Lactic acidosis Assessment/Plan: improved Code(s): E87.2 - ACIDOSIS (6) Hypertension Assessment/Plan: controlled continue metoprolol Code(s): I10 - ESSENTIAL (PRIMARY) HYPERTENSION Qualifiers: Hypertension type: essential hypertension Qualified Code(s): I10 - Essential (primary) hypertension (7) Dementia Assessment/Plan: pt non verbal, bed-bound dysphagia pureed diet Code(s): F03.90 - UNSPECIFIED DEMENTIA WITHOUT BEHAVIORAL DISTURBANCE Qualifiers: Dementia behavioral disturbance: without behavioral disturbance (8) Seizure disorder Assessment/Plan: chronic continue keppra Code(s): G40.909 - EPILEPSY, UNSP, NOT INTRACTABLE, WITHOUT STATUS EPILEPTICUS (9) Hypokalemia Assessment/Plan: improved Code(s): E87.6 - HYPOKALEMIA (10) Cough Assessment/Plan: chronic chest xray unchanged Code(s): R05 - COUGH (1) 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
[2018-05-25 09:50] LABS: ANISOCYTOSIS 0; HELMET CELLS 0; HOWELL-JOLLY BODIES 0; MACROCYTOSIS 0; OVALOCYTE 0; PLATELET ESTIMATE DECREASED; ROULEAU 0; SICKELED CELLS 0; TARGET CELLS 0; TEAR DROP CELLS 0; TOXIC GRANULATION 0
[2018-05-25] MEDS ORDERED: levETIRAcetam 250 MG TABLET (FP) PO SCH (10:02)
[2018-05-25] MEDS ORDERED: DEXTROSE 5%-WATER 100 ML IVPB ONE (11:25)
[2018-05-25] MEDS: CEFTRIAXONE 2 GM in DEXTROSE 5%-WATER 100 ML IVPB SCH (12:04)
[2018-05-25] MEDS: ENOXAPARIN NA (PORCINE) 30 MG/0.3 ML DISP.SYRIN SQ SCH (12:07)
[2018-05-25] MEDS: metoPROLOL SUCCINATE 25 MG TAB.SR.24H (FP) PO SCH ×2 (12:07→21:47)
[2018-05-25] MEDS: levETIRAcetam 250 MG TABLET (FP) PO SCH ×2 (12:08→21:48)
[2018-05-25] MEDS: POLYETHYLENE GLYCOL 3350 119 GM BTL PO SCH (12:08)
[2018-05-25] MEDS: levETIRAcetam 500 MG TABLET (FP) PO SCH (12:14)
--- NOTE | 2018-05-25 12:46 | PN ---
Progress Note, AUTOMOTIVE REFINISH TECHNICIAN - Note Progress Note: MBS reviewed. Seen lunchtime, being fed by SINGLE END SEWER, with good tolerance. No overt signs of aspiration. Selected Entries 05/24/18 05/24/18 05/24/18 01:09 06:00 09:16 Breakfast Supper Temperature 100.7 F H 97.9 F 97.8 F 05/24/18 05/24/18 05/24/18 11:37 18:50 21:46 Breakfast 75% Supper 75% Temperature 97.8 F 98.7 F 05/25/18 05/25/18 05/25/18 02:00 06:00 09:23 Breakfast Supper Temperature 98.3 F 98.3 F 98.7 F 05/25/18 11:50 Breakfast 50% Supper Temperature Laboratory Tests 05/25/18 07:00 WBC 3.7 L
[2018-05-25 15:32] VITALS: BMI 21.2
[2018-05-25] MEDS ORDERED: PNEUMOC 13-VAL CONJ-DIP CRM/PF 0.5 ML DISP.SYRIN IM ONE (16:22)
[2018-05-25] MEDS: SENNOSIDES 8.6MG TABLET (FP) PO SCH (21:47)
[2018-05-26] MEDS ORDERED: DEXTROSE 5%-WATER 100 ML IVPB ONE (09:16)
[2018-05-26] MEDS: ENOXAPARIN NA (PORCINE) 30 MG/0.3 ML DISP.SYRIN SQ SCH (10:01)
[2018-05-26] MEDS: levETIRAcetam 250 MG TABLET (FP) PO SCH (10:01)
[2018-05-26] MEDS: POLYETHYLENE GLYCOL 3350 119 GM BTL PO SCH (10:02)
[2018-05-26] MEDS: CEFTRIAXONE 2 GM in DEXTROSE 5%-WATER 100 ML IVPB SCH (10:02)
[2018-05-26] MEDS: metoPROLOL SUCCINATE 25 MG TAB.SR.24H (FP) PO SCH (10:10)
[2018-05-26 10:17] VITALS: BP 157/98; PULSE 110; TEMP 98.3
[2018-05-26 11:41] LABS: BASO % 0.5 % (0-2.0); HEMATOCRIT 32.7 % (32.4-45.2); HEMOGLOBIN 11.1 GM/dL (10.7-15.3); LYMPH % 20.1 % (8-40); MCH 29.3 pg (25.7-33.7); MCHC 33.8 g/dl (32.0-36.0); MEAN CELL VOLUME 86.6 fl (80-96); MEAN PLT VOLUME 7.6 fl (7.5-11.1); MONO % 15.9 % (3.8-10.2); NEUT % 58.5 % (42.8-82.8); PLATELET COUNT 169 K/MM3 (134-434); RBC 3.78 M/mm3 (3.60-5.2); RDW 12.9 % (11.6-15.6); WHITE BLOOD COUNT 5.4 K/mm3 (4.0-10.0)
--- NOTE | 2018-05-26 11:49 | DS ---
Physical Examination Vital Signs: Vital Signs Temperature 98.3 F 05/26/18 10:00 Pulse Rate 110 H 05/26/18 10:00 Respiratory Rate 18 05/26/18 10:00 Blood Pressure 157/98 05/26/18 10:00 O2 Sat by Pulse Oximetry (%) 99 05/25/18 21:00 Constitutional: Yes: Well Nourished, No Distress, Calm Cardiovascular: Yes: Regular Rate and Rhythm, Murmur Respiratory: Yes: Regular, Diminished. No: Accessory Muscle Use, Rales, Rhonchi , SOB, Tachypnea, Wheezes Gastrointestinal: Yes: WNL, Normal Bowel Sounds, Soft. No: Distention, Tenderness Renal/: Yes: Incontinence Extremities: Yes: Deformity (contracted) Edema: No Neurological: Yes: Alert, Confusion Psychiatric: Yes: Alert Labs: CBC, BMP 05/26/18 11:20 Discharge Summary Reason For Visit: SEPSIS Current Active Problems OMEGA (acute kidney injury) (Acute) Functional quadriplegia (Acute) Hypokalemia (Acute) Lactic acidosis (Acute) Metabolic encephalopathy (Acute) Seizure disorder (Acute) Sepsis (Acute) UTI (urinary tract infection) (Acute) Hospital Course: 87 year old female pmh significant for advanced dementia admitted for sepsis. Pt was diagnosed w/ UTI outpt and started on macrobid by PCP on 05/20. UC outpt grew ecoli on outpt records. Upon admission, pt tachycardic, hypotensive. Blood/ urine culture neg. Pt clinically improved, hemodynamically stable, mental status improved, eating meals. Pt received 4 days of ceftriaxone, transitioned to po kelfex to complete 10 day course. Pt evaluated by speech path concerning for possible aspiration, as family noticed intermittent coughing. Chest xray neg. Pt underwent MBS which revealed moderate swallowing impairment, recommend continue pureed diet for now. Pt is medically stable for discharge home, vitals stable, labs unremarkable. Follow up as directed 32 minutes spent in discharge planning Condition: Good - Instructions Diet, Activity, Other Instructions: ANTIBX X 6 DAYS ADEQUATE HYDRATION RECOMMENDATIONS: Continue puree diet and small single sips of thin liquid, from a cup or spoon, ideally out of bed in a chair if possible. Head of bed should always be elevated if fed in bed. Head positioning should be at in neutral, avoid extending patient's head while swallowing. If coughing is noted with single careful sips of thin liquid, patient may need to be downgraded to nectar thick liquid. Referrals: Braden Harrington MD [Staff Physician] - Disposition: VNS/HOME HEALTH CARE - Home Medications Comprehensive Discharge Medication List: Ambulatory Orders Metoprolol Succinate [Toprol XL -] 25 mg PO BID 01/15/14 Alprazolam 0.5 mg PO TID 12/30/15 Aspirin 81 mg PO DAILY 05/23/18 Sennosides [Senna] 3 tab PO HS 05/23/18 levETIRAcetam [Keppra -] 750 mg PO BID 05/23/18 Cephalexin [Keflex] 500 mg PO BID 6 Days #12 capsule 05/26/18
[2018-05-26 12:11] LABS: ANION GAP 5 MMOL/L (8-16); BLOOD UREA NITROGEN 14 mg/dL (7-18); CALCIUM 8.3 mg/dL (8.5-10.1); CHLORIDE 105 mmol/L (98-107); CO2 28 mmol/L (21-32); CREATININE 0.8 mg/dL (0.55-1.3); GLUCOSE,RANDOM 153 mg/dL (74-106); POTASSIUM 4.1 mmol/L (3.5-5.1); SODIUM 138 mmol/L (136-145)
[2018-05-26 12:25] LABS: MACROCYTOSIS 0; PLATELET ESTIMATE NORMAL
== END 2018-05-26 14:25 | disposition home health service (06) | DRG 871 ==
LOC: JER 07:35 → JERBED 11:07 → J5S 19:50
PROVIDERS: ADMIT Internal Medicine; ATTEND Nurse Practitioner Family
DX: A41.51 Sepsis due to Escherichia coli [E. coli] (principal); G93.41 Metabolic encephalopathy; R53.2 Functional quadriplegia; N39.0 Urinary tract infection, site not specified; E87.2 Acidosis; N17.9 Acute kidney failure, unspecified; F03.90 Unspecified dementia, unspecified severity, without behavioral disturbance, psychotic disturbance, mood disturbance, and anxiety; E11.9 Type 2 diabetes mellitus without complications; E78.5 Hyperlipidemia, unspecified; Z74.01 Bed confinement status; G40.909 Epilepsy, unspecified, not intractable, without status epilepticus; R05 Cough; Z66 Do not resuscitate; K57.30 Diverticulosis of large intestine without perforation or abscess without bleeding; E87.6 Hypokalemia
CPT/HCPCS: 36415; 71045-TC-FY; 74230-TC-FY; 80048; 80053; 81003; 81015; 82803; 83605; 83735; 83880; 84100; 84484; 85025; 85610; 85730; 87040; 87070; 87086; 87804; 90688; 92611-GN; 93005; 93010; 99284-25; G0008; J7030

== ENCOUNTER 2018-05-30 14:55 | Inpatient (IN) | payer OTHER ==
--- NOTE | 2018-05-30 15:26 | PDOC ---
History of Present Illness - General Chief Complaint: Seizure Stated Complaint: SEIZURE Time Seen by Provider: 05/30/18 15:12 - History of Present Illness Initial Comments: The pt is an 87F w/ a history of seizure d/o, CAD, HTN, dementia who presents for evaluation of seizure x2 today. Elizabeth reports seizures lasted approximately 1-3 min each and on presentation the patient continues to be post- ictal. Elizabeth reports last seizure approximately 2y ago and that her seizures are usually one at a time and several years apart. Reports recent admission for UTI last week. At that time the patient reportedly had UCx that grew E. coli as an outpt. Most recent UCx from our records are no- growth. On Keppra 750mg PO BID w/o recent change in dose Denies recent fevers, change in mentation, rash, cough, or sick contacts. Neurologist: Dr. Castro 05/30/18 15:48 Past History - Past Medical History Allergies/Adverse Reactions: Allergies Allergy/AdvReac Type Severity Reaction Status Date / Time No Known Allergies Allergy Verified 05/30/18 15:08 Home Medications: Ambulatory Orders Metoprolol Succinate [Toprol XL -] 25 mg PO BID 01/15/14 Alprazolam 0.5 mg PO TID 12/30/15 Aspirin 81 mg PO DAILY 05/23/18 Sennosides [Senna] 3 tab PO HS 05/23/18 levETIRAcetam [Keppra -] 750 mg PO BID 05/23/18 Cephalexin [Keflex] 500 mg PO BID 6 Days #12 capsule 05/26/18 Anemia: Yes Cardiac Disorders: Yes COPD: No Dementia: Yes GI Disorders: Yes Disorders: Yes (UTI 02/12/13) HTN: Yes Hypercholesterolemia: Yes Seizures: Yes - Surgical History Abdominal Surgery: Yes GI Surgery: Yes (reversal of colostomy in 2006) - Immunization History Td Vaccination: Yes Immunization Up to Date: Yes - Suicide/Smoking/Psychosocial Hx Smoking Status: No Smoking History: Never smoked Years of Tobacco Use: 0 Have you smoked in the past 12 months: No Number of Cigarettes Smoked Daily: 0 Cigars Per Day: 0 Hx Alcohol Use: No Drug/Substance Use Hx: No Substance Use Type: None Hx Substance Use Treatment: No Review of Systems - Review of Systems Able to Perform ROS?: No (UTO 2/2 medical condition) *Physical Exam - Vital Signs Last Vital Signs Temp Pulse Resp BP Pulse Ox 99.2 F 100 H 18 160/90 96 05/30/18 15:02 05/30/18 15:02 05/30/18 15:02 05/30/18 15:02 05/30/18 15:02 - Physical Exam Comments: GENERAL: Awake, not oriented HEAD: No signs of trauma, normocephalic, atraumatic EYES: PERRLA, EOMI, sclera anicteric, conjunctiva clear ENT: Hearing grossly normal, nares patent, oropharynx clear without exudates. Dry mucosa. LUNGS: No distress, speaks full sentences, clear to auscultation bilaterally HEART: Regular rate and rhythm, normal S1 and S2, systolic murmur appreciated, peripheral pulses normal and equal bilaterally ABDOMEN: Soft, non-distended, normoactive bowel sounds. No guarding, no rebound EXTREMITIES: Normal inspection, Normal range of motion, no edema. No clubbing or cyanosis NEUROLOGICAL: Aphasic, withdraws to pain, does not follow commands, opens eyes spontaneously/does not make eye contact SKIN: Warm, Dry, no rashes or lesions noted 05/30/18 15:25 Moderate Sedation - Procedure Monitoring Vital Signs: Procedure Monitoring Vital Signs Temperature 99.2 F 05/30/18 15:02 Pulse Rate 100 H 05/30/18 15:02 Respiratory Rate 18 05/30/18 15:02 Blood Pressure 160/90 05/30/18 15:02 O2 Sat by Pulse Oximetry (%) 96 05/30/18 15:02 ED Treatment Course - LABORATORY CBC & Chemistry Diagram: 05/30/18 15:09 05/30/18 15:09 Medical Decision Making - Medical Decision Making The pt is an 87F w/ a history of seizure d/o, dementia, and HTN who presents for evaluation s/p seizure x2 today. ED Course CMP, CBC, Keppra level, UA, UCx ECG CT Head NS 1L 05/30/18 15:[address] w/o acute bleed, chronic atrophy 05/30/18 18:23 Trop I neg Lytes wnl No leukocytosis No anemia No OMEGA LFTs wnl 05/30/18 19:07 ECG w/ sinus tachycardia, HR 107 05/30/18 19:19 Neurology consulted -Keppra 500mg IV once -EEG order placed Plan for admission for evaluation of change in seizure activity 05/30/18 20:08 *DC/Admit/Observation/Transfer Diagnosis at time of Disposition: Seizure Dementia Qualifiers: Dementia type: unspecified type Dementia behavioral disturbance: without behavioral disturbance Qualified Code(s): F03.90 - Unspecified dementia without behavioral disturbance Hypertension Qualifiers: Hypertension type: unspecified Qualified Code(s): I10 - Essential (primary) hypertension - Discharge Dispostion Condition at time of disposition: Fair Decision to Admit order: Yes - Referrals Referrals: Braden Harrington MD [Primary Care Provider] - - Patient Instructions - Post Discharge Activity
[2018-05-30] MEDS ORDERED: SODIUM CHLORIDE 0.9% 500 ML INFUS.BAG IV ONE (15:41)
--- NOTE | 2018-05-30 16:10 | PDOC ---
Attending Attestation - Resident Resident Name: Darren Noyola - ED Attending Attestation I have performed the following: I have examined & evaluated the patient, The case was reviewed & discussed with the resident, I agree w/resident's findings & plan, Exceptions are as noted - HPI HPI: 05/30/18 16:21 The patient is a 87 year old female, with a significant past medical history seizure disorder, dementia, aphasia, CAD, and HTN of who presents to the emergency department with family after two witnessed seizures today. As per the family, the patient was at rest at the onset of her first seizure which lasted about a minute. Per the family, the patient experienced a second seizure about 5 minutes after the first episode. The family reports the patient was at baseline prior to the seizure activity today. Immediately after the episodes, pt had a post-ictal period, though family reports she is gradually regaining her baseline mentation, nodding her head and opening her eyes. The family denies any head trauma. They deny any recent falls/ illnesses/ or sick contact. The family denies bilateral or bowel incontinence. The patient is currently being treated with antibiotics for a UTI. Family reports pt does not frequently have seizures. Last sz several years ago. Allergies: NKA Social history: No reported PCP: Dr. Harrington - Physicial Exam PE: 05/30/18 16:23 GENERAL: Awake, in no acute distress. HEAD: No signs of trauma EYES: PERRLA, EOMI, sclera anicteric, conjunctiva clear ENT: Auricles normal inspection, hearing grossly normal, nares patent, oropharynx clear without exudates. Moist mucosa NECK: Nontender, no stepoffs, Normal ROM, supple, no lymphadenopathy, JVD, or masses LUNGS: Breath sounds equal, clear to auscultation bilaterally. No wheezes, and no crackles HEART: Regular rate and rhythm, normal S1 and S2, no murmurs, rubs or gallops ABDOMEN: Soft, nontender, normoactive bowel sounds. No guarding, no rebound. No masses EXTREMITIES: Normal range of motion, no edema. No clubbing or cyanosis. No cords, erythema, or tenderness NEUROLOGICAL: Cranial nerves II through XII intact. 5/5 strength in all extremities SKIN: Warm, Dry, normal turgor, no rashes or lesions noted. - Medical Decision Making 05/30/18 16:23 87 F with 2 seizures today. Given consecutive nature of seizures without return to baseline between, pt meets criteria for status epilepticus. No additional seizures in ED. Typically well controlled, last sz several years ago. Will evaluate for infectious/metabolic process. Also check keppra level. Will image head given baseline non-verbal status and difficult exam. - Labs, keppra level - CXR, UA - CT head
[2018-05-30 17:38] LABS: BASO % 1.1 % (0-2.0); EOS % 2.9 % (0-4.5); HEMATOCRIT 38.2 % (32.4-45.2); HEMOGLOBIN 12.7 GM/dL (10.7-15.3); LYMPH % 16.9 % (8-40); MCH 28.7 pg (25.7-33.7); MCHC 33.1 g/dl (32.0-36.0); MEAN CELL VOLUME 86.6 fl (80-96); MEAN PLT VOLUME 7.4 fl (7.5-11.1); MONO % 11.9 % (3.8-10.2); NEUT % 67.2 % (42.8-82.8); PLATELET COUNT 255 K/MM3 (134-434); RBC 4.41 M/mm3 (3.60-5.2); RDW 13.5 % (11.6-15.6)
[2018-05-30 17:56] LABS: ALK PHOS 105 U/L (45-117); ANION GAP 9 MMOL/L (8-16); BILIRUBIN,TOTAL 0.2 mg/dL (0.2-1); BLOOD UREA NITROGEN 9 mg/dL (7-18); CALCIUM 8.6 mg/dL (8.5-10.1); CHLORIDE 106 mmol/L (98-107); CO2 26 mmol/L (21-32); CREATININE 0.8 mg/dL (0.55-1.3); GLUCOSE,RANDOM 111 mg/dL (74-106); POTASSIUM 4.6 mmol/L (3.5-5.1); SGOT/AST 14 U/L (15-37); SGPT/ALT 20 U/L (13-61); SODIUM 141 mmol/L (136-145); TOT PROT 7.3 g/dl (6.4-8.2)
[2018-05-30 19:24] LABS: URINE APPEARANCE CLEAR; URINE BILIRUBIN NEGATIVE (<2.0 mg/dL); URINE COLOR LTYELLOW; URINE GLUCOSE (UA) NEGATIVE (NEGATIVE); URINE KETONE NEGATIVE (NEGATIVE); URINE LEUK ESTERASE NEGATIVE (NEGATIVE); URINE NITRITE NEGATIVE (NEGATIVE); URINE PROTEIN NEGATIVE (NEGATIVE); URINE UROBILINOGEN NEGATIVE mg/dL (0.2-1.0)
[2018-05-30] MEDS ORDERED: levETIRAcetam 500 MG/5 ML INJECTION VIAL IVPB ONE (20:06)
--- NOTE | 2018-05-30 20:15 | CON.NEURO ---
Consult Consult Specialty:: Gloria Referred by:: ER - History of Present Illness Chief Complaint: breakthrough seizure History of Present Illness: this is an 87-year-old right-handed woman with multiple medical problem including history of epilepsy who according to the chart patient usually gets one seizure once a month patient is on antiseizure medication Keppra 750 twice daily. Patient yesterday had 2 episodes of seizure witnessed by the family which is unusual. Patient was also history of chronic renal insufficiency Keppra was limited in the intake. No report of any recent travel no fever no head trauma. Patient was stabilized in the emergency room patient was afebrile patient herself is a poor historian I so the patient on the medical floor at the requisition of the emergency room and the primary care doctor. Since admission to the floor patient with no recurrence of her seizure. - Past Medical History BACTERIOLOGIST MEDICAL: Yes: Dementia, Seizure, Syncope Cardio/Vascular: Yes: HTN, Hyperlipdemia Gastrointestinal: Yes: Diverticulitis Renal/: Yes: UTI Musculoskeletal: Yes: Other (All four extremities contracted) - Past Surgical History Past Surgical History: Yes: Colostomy ((Reversed)) - Alcohol/Substance Use Hx Alcohol Use: No History of Substance Use: reports: None - Smoking History Smoking history: Never smoked Have you smoked in the past 12 months: No Aproximately how many cigarettes per day: 0 - Social History ADL: Support Services History of Recent Travel: No Home Medications - Allergies Allergies/Adverse Reactions: Allergies Allergy/AdvReac Type Severity Reaction Status Date / Time No Known Allergies Allergy Verified 05/30/18 15:08 - Home Medications Home Medications: Ambulatory Orders Metoprolol Succinate [Toprol XL -] 25 mg PO BID 01/15/14 Alprazolam 0.5 mg PO TID 12/30/15 Aspirin 81 mg PO DAILY 05/23/18 Sennosides [Senna] 3 tab PO HS 05/23/18 levETIRAcetam [Keppra -] 750 mg PO BID 05/23/18 Cephalexin [Keflex] 500 mg PO BID 6 Days #12 capsule 05/26/18 Family Disease History - Family Disease History Family History: Unable to Obtain Review of Systems - Review of Systems Constitutional: reports: No Symptoms Eyes: reports: No Symptoms HENT: reports: No Symptoms Physical Exam-Neuro Vital Signs: Vital Signs Temperature 99.2 F 05/30/18 15:02 Pulse Rate 102 H 05/30/18 18:41 Respiratory Rate 26 H 05/30/18 18:41 Blood Pressure 104/93 05/30/18 18:41 O2 Sat by Pulse Oximetry (%) 97 05/30/18 18:41 Constitutional: Yes: Well Nourished Labs: CBC, BMP 05/30/18 15:09 05/30/18 15:09 - Neuro Exam Level Of Consciousness: Yes: Alert (fluctuating mental status does not follow commands keeps the eyes closed cannot open her eyes no clear verbal output right -handed dominant) Cranial Nerves II-XII Intact: No Gag: Present Response to light touch: Abnormal (unable to assessunable to assess) Problem List - Problems (1) Seizure Assessment/Plan: 1. Seizure precautions. 2. EEG. 3. Ativan when necessary seizure. 3. Unfortunately due to the creatinine clearance we cannot increase the Keppra more than 750 twice daily. 4. Trial of Zonegran 25 mg twice daily to boost the Keppra. 5. Obtain repeat blood work for the zonogram and the Keppra in 1 week. 6. If the patient is seizure free for 24 hours neurological he could be discharged area Code(s): R56.9 - UNSPECIFIED CONVULSIONS
--- NOTE | 2018-05-30 20:39 | PN ---
Teaching Attending Note Name of Resident: Neftali Nguyen ATTENDING PHYSICIAN STATEMENT I saw and evaluated the patient. I reviewed the resident's note and discussed the case with the resident. I agree with the resident's findings and plan as documented. SUBJECTIVE: Seen and examined; please refer to resident note for additional historical information. Briefly, this is an 87 y/o female with a history of HTN, CAD, Sz presenting to the ER with 2 episodes of witnessed seizures at home by aid that did fit the stereotyped definition with post ictal state. She is on Keppra 750 BID at home. She has no recent seizure episodes. She was discharged several days ago due to UTI with metabolic encephalopathy. She is a patient of Dr. Harrington. She has 2 more days of the keflex; no fevers, etc. at home. She is a poor historian and cannot contribute to historical information and she is nonverbal at baseline; relies on her casing soaker for daily care. Admitting to medicine with neurology consult. Case was discussed with biodiesel production associate Neurologist in the ER; appreciate specialist input. 10 sys ROS could not be completed due to mentation PMH and PSH reviewed FH asked and noncontributory Social history reviewed; as per resident note Medication list reviewed; reconciliation pending OBJECTIVE: VS, labs, imaging reviewed NAD, alert but nonverbal, resting in bed and appears comfortable RRR s1/2 no mgr Lungs CTAB s1/2 w/ sym exp NT ND +BS No clonus, no abberations noted with reflexes, moves all 4 extremities. Difficult to do a full proper exam due to mentation at baseline. ASSESSMENT AND PLAN: Patient presents to the ER with a breakthrough seizure; she was being treated for UTI as OP and was recently DCd. Neurology is aware she is here. 1) Breakthrough Seizure -Admit with neuro consult; seizure precautions and neuro checks. -Increased Keppra to 1000. -Futher labs and imaging studies per neurology -Changing keflex to ceftriaxone while inpt; may lower sz threshold. 2) Dementia -Approaching baseline; monitor for sundowning. check QTc if haldol, etc. needed 3) Cystitis (known, undergoing tx) -Change back to ceftriaxone to complete course -OP cultures done; can call her PCP office to obtain. 4) HTN -Continue home meds 5) HLD -Continue home meds 6) Functional Quadraplegia -Noted in hx; per aid her baseline for ~10 years. DNR
[2018-05-30] MEDS ORDERED: ACETAMINOPHEN 1000 MG/100 ML VIAL (NON FORMULARY) IVPB ONE (21:31)
[2018-05-30] MEDS ORDERED: ACETAMINOPHEN INJECTION 100 ML IVPB ONE (22:08)
[2018-05-30] MEDS: metoPROLOL SUCCINATE 25 MG TAB.SR.24H (FP) PO SCH (22:24)
[2018-05-30 22:29] LABS: PLATELET ESTIMATE ADEQUATE
--- NOTE | 2018-05-30 23:09 | HP ---
<Neftali Nguyen - Last Filed: 05/31/18 03:08> CHIEF COMPLAINT: Seizure PCP: Dr. Harrington HISTORY OF PRESENT ILLNESS: The patient is an 87 yo f w/ PMH dementia (nonverbal at baseline) seizure disorder, CAD, HTN who was BIBEMS from home for 2 witnessed seizures today. The following history obtained with the assistance of he patient's grandson and her aide. The patient's 24 hr aide (at bedside) states that at approx. 1pm today, she noticed that the patient became unresponsive with eyes rolling back into her head and protrusion of the tongue. This seizure lasted approx. 1 minute and resolved spontaneously. The patient was post ictal, then had another seizure before retunring to baseline. This episode was similar to her previous seizure, but only lasted 4 seconds before resolving spontaneously. The patient's last seizure before this was 2 years ago. Neither the aide nor the patient's grandson could remember the name of the patient's neurologist or the last time she saw them. Patient takes 750mg keppra BID PO at home. Patient's aide endorses medication compliance. Of note, the patient was recently admitted to [facility] for treatment of a UTI with a positive culture (e.coli) seen as an outpatient. She failed outpatient treatment with bactrim, was treated with ceftriaxone as an inpatient, then d/c on 05/26 with 6 days of Keflex 500 BID. ER course was notable for: (1) 500mg keppra IV (2) CT head negative (3) Neurology consulted form ED (Dr. castro saw her in the past) who suggested admission and Keppra 1g BID (4) Arias inserted 2/2 possible retention. Recent Travel: none PAST MEDICAL HISTORY: see HPI PAST SURGICAL HISTORY: colostomy reversal Social History: Smoking: denies Alcohol:denies Drugs: denies Family History: Non-contributory Allergies No Known Allergies Allergy (Verified 05/30/18 15:08) HOME MEDICATIONS: Home Medications Medication Instructions Recorded Metoprolol Succinate [Toprol XL -] 25 mg PO BID 01/15/14 Alprazolam 0.5 mg PO TID 12/30/15 Aspirin 81 mg PO DAILY 05/23/18 Sennosides [Senna] 3 tab PO HS 05/23/18 levETIRAcetam [Keppra -] 750 mg PO BID 05/23/18 Cephalexin [Keflex] 500 mg PO BID 6 Days #12 capsule 05/26/18 REVIEW OF SYSTEMS Unable to obtain due to clinical status PHYSICAL EXAMINATION Vital Signs - 24 hr 05/30/18 05/30/18 05/30/18 15:02 15:30 16:30 Temperature 99.2 F Pulse Rate 100 H Pulse Rate [ 96 H 90 Apical] Respiratory 18 22 H 22 H Rate Blood Pressure 160/90 Blood Pressure 93/35 L 108/74 [Left Calf] O2 Sat by Pulse 96 98 98 Oximetry (%) 05/30/18 05/30/18 05/30/18 17:15 18:41 20:57 Temperature Pulse Rate Pulse Rate [ 95 H 102 H 102 H Apical] Respiratory 20 26 H 26 H Rate Blood Pressure Blood Pressure 88/77 L 104/93 136/105 H [Left Calf] O2 Sat by Pulse 96 97 98 Oximetry (%) 05/30/18 05/30/18 21:32 23:05 Temperature 100.4 F H 99.4 F Pulse Rate Pulse Rate [ 102 H 101 H Apical] Respiratory 18 18 Rate Blood Pressure Blood Pressure 121/102 H 124/100 [Left Calf] O2 Sat by Pulse 100 100 Oximetry (%) GENERAL: Patient lethargic, reacts to touch, unable to follow commands, nonverbal. This is her baseline as per family. Patient grimaces to touch. HEAD: Normal with no signs of trauma. EYES: Pupils equal, round and reactive to light, sclera anicteric, conjunctiva clear. LUNGS: Breath sounds equal, clear to auscultation bilaterally. No wheezes, and no crackles. No accessory muscle use. HEART: Regular rate and rhythm, normal S1 and S2 without murmur, rub or gallop. ABDOMEN: Soft, nontender, not distended, normoactive bowel sounds, no guarding, no rebound, no masses. No hepatomegaly or splenomegaly. LOWER EXTREMITIES: 2+ pulses, warm, well-perfused. No calf tenderness. No peripheral edema. NEUROLOGICAL: Unable to obtain 2/2 clinical status. SKIN: Warm, dry, normal turgor, no rashes or lesions noted, normal capillary refill. Laboratory Results - last 24 hr 05/30/18 05/30/18 05/30/18 15:09 15:09 19:10 WBC 10.0 RBC 4.41 Hgb 12.7 Hct 38.2 D MCV 86.6 MCH 28.7 MCHC 33.1 RDW 13.5 Plt Count 255 D MPV 7.4 L Absolute Neuts (auto) 6.7 Total Counted 100 Neutrophils % 67.2 Neutrophils % (Manual) 66.0 Band Neutrophils % 1.0 Lymphocytes % 16.9 Lymphocytes % (Manual) 16.0 Monocytes % 11.9 H Monocytes % (Manual) 10 Eosinophils % 2.9 Eosinophils % (Manual) 4.0 D Basophils % 1.1 Basophils % (Manual) 1.0 D Myelocytes % (Man) 1 D Nucleated RBC % 0 Differential Comment Man diff performed Platelet Estimate Adequate Platelet Comment Sodium 141 Potassium 4.6 Chloride 106 Carbon Dioxide 26 Anion Gap 9 BUN 9 Creatinine 0.8 Creat Clearance w eGFR > 60 Random Glucose 111 H Calcium 8.6 Total Bilirubin 0.2 AST 14 L ALT 20 Alkaline Phosphatase 105 Creatine Kinase 18 L Troponin I < 0.02 Total Protein 7.3 Albumin 3.0 L Urine Color Ltyellow Urine Appearance Clear Urine pH 7.0 D Ur Specific [place] 1.012 Urine Protein Negative Urine Glucose (UA) Negative Urine Ketones Negative Urine Blood Negative Urine Nitrite Negative Urine Bilirubin Negative Urine Urobilinogen Negative Ur Leukocyte Esterase Negative ASSESSMENT/PLAN: The patient is an 87 yo f w/ PMH dementia and sezure disorder who comes into the ED c/o 2 sequential seizures this afternoon. #breakthrough seizures possibly idiopathic vs recent abx administration -Patient was recently d/c home with PO keflex 500 BID for UTI -Keflex carries warning of possible seizure threshold lowering -will hold keflex at this time -s/p 500mg keppra IV in ED -Dr. Castro (Neuro) consulted from ED; agrees with ED plan and suggests overnight observation and 1g keppra daily -keppra levels pending #recent UTI -patient has 4 more days of abx remaining in course -will complete course w/ ceftriaxone while admitted -patient will require alternative abx upon discharge with attention to epileptic side effects -UA negative in ED, ucx sent -afebrile without leukocytosis at this time #CAD, HTN, previous stroke -c/w asa 81 daily -c/w toprol XL 25mg BID #FEN -no fluid indicated -lytes WNL -puree diet (home diet) #Prophy -SCDs #Dispo -observe on med-surg Visit type - Emergency Visit Emergency Visit: Yes ED Registration Date: 05/30/18 Care time: The patient presented to the Emergency Department on the above date and was hospitalized for further evaluation of their emergent condition. - New Patient This patient is new to me today: Yes Date on this admission: 05/31/18 - Critical Care Critical Care patient: No <Darren Botello - Last Filed: 06/16/18 02:17> Agree with above aside from as supplemented by myself in my own note. Was present and repeated all tomas parts of exam and history.
[2018-05-31] MEDS: LACTATED RINGERS SOLUTION 1,000 ML/1,000 ML INFUS.BAG IV SCH ×3 (00:05→23:37)
[2018-05-31 07:42] LABS: BASO % 0.7 % (0-2.0); EOS % 5.4 % (0-4.5); HEMATOCRIT 35.8 % (32.4-45.2); HEMOGLOBIN 11.9 GM/dL (10.7-15.3); LYMPH % 23.2 % (8-40); MCH 29.1 pg (25.7-33.7); MCHC 33.4 g/dl (32.0-36.0); MEAN PLT VOLUME 7.5 fl (7.5-11.1); MONO % 10.3 % (3.8-10.2); NEUT % 60.4 % (42.8-82.8); PLATELET COUNT 240 K/MM3 (134-434); RBC 4.11 M/mm3 (3.60-5.2); RDW 13.3 % (11.6-15.6); WHITE BLOOD COUNT 5.7 K/mm3 (4.0-10.0)
[2018-05-31 07:48] LABS: INR 0.99 (0.83-1.09); PROTHROMBIN TIME (PATIENT) 11.7 SEC (9.7-13.0)
[2018-05-31 07:51] LABS: ACTIVATED PTT 29.1 SECONDS (25.2-36.5)
[2018-05-31 08:47] LABS: ALK PHOS 105 U/L (45-117); ANION GAP 11 MMOL/L (8-16); BILIRUBIN,TOTAL 0.7 mg/dL (0.2-1); BLOOD UREA NITROGEN 11 mg/dL (7-18); CALCIUM 8.4 mg/dL (8.5-10.1); CHLORIDE 108 mmol/L (98-107); CO2 20 mmol/L (21-32); CREATININE 0.8 mg/dL (0.55-1.3); GLUCOSE,RANDOM 97 mg/dL (74-106); MAGNESIUM 2.3 mg/dL (1.8-2.4); PHOSPHOROUS 3.1 mg/dL (2.5-4.9); POTASSIUM 3.8 mmol/L (3.5-5.1); SGOT/AST 16 U/L (15-37); SGPT/ALT 19 U/L (13-61); SODIUM 140 mmol/L (136-145); TOT PROT 7.1 g/dl (6.4-8.2)
[2018-05-31] MEDS ORDERED: PT OWN MED DRAWER 7, Y5N ONE ×2 (09:24→21:08)
[2018-05-31] MEDS ORDERED: DEXTROSE 5%-WATER - 50 ML IVPB ONE (09:24)
[2018-05-31] MEDS ORDERED: cefTRIAXone SODIUM 1 GM VIAL ONE (09:24)
[2018-05-31] MEDS: metoPROLOL SUCCINATE 25 MG TAB.SR.24H (FP) PO SCH ×2 (09:26→23:36)
[2018-05-31] MEDS: ACETAMINOPHEN 325 MG TABLET (FP) PO PRN ×2 (09:26→19:21)
[2018-05-31] MEDS: ASPIRIN 81 MG CHEWABLE TABLETS PO SCH (09:27)
[2018-05-31] MEDS ORDERED: levETIRAcetam 500 MG TABLET (FP) PO SCH (10:00)
[2018-05-31] MEDS ORDERED: CEFTRIAXONE 1 GM in DEXTROSE 5%-WATER - 50 ML IVPB SCH (10:00)
--- NOTE | 2018-05-31 11:57 | PN ---
Progress Note, Physician Chief Complaint: Pt lying in bed in no acute distress. unable to obtain 2/2 advanced dementia. IOS SOFTWARE ENGINEER at bedside, reports she's tolerating diet w/out coughing/distress. - Current Medication List Current Medications: Active Medications Acetaminophen (Tylenol -) 650 mg PO Q4H PRN PRN Reason: PAIN Last Admin: 05/31/18 09:26 Dose: 650 mg Aspirin (Asa -) 81 mg PO DAILY [facility] Last Admin: 05/31/18 09:27 Dose: 81 mg Lactated Ringer's (Lactated Ringers Solution) 1,000 ml in 1,000 mls @ 75 mls/ hr IV ASDIR [facility] Last Admin: 05/31/18 00:05 Dose: 75 mls/hr Ceftriaxone Sodium 1 gm/ (Dextrose) 50 mls @ 100 mls/hr IVPB DAILY [facility] Last Admin: 05/31/18 09:27 Dose: 100 mls/hr Levetiracetam (Keppra -) 1,000 mg PO BID [facility] Metoprolol Succinate (Toprol Xl -) 25 mg PO BID [facility] Last Admin: 05/31/18 09:26 Dose: 25 mg Senna (Senna -) 3 tab PO HS [facility] - Objective Vital Signs: Vital Signs Temperature 100.2 F H 05/31/18 09:17 Pulse Rate 116 H 05/31/18 09:17 Respiratory Rate 20 05/31/18 09:17 Blood Pressure 159/93 05/31/18 09:17 O2 Sat by Pulse Oximetry (%) 100 05/31/18 06:01 Constitutional: Yes: No Distress Cardiovascular: Yes: Regular Rate and Rhythm, Murmur Respiratory: Yes: Regular, CTA Bilaterally, Diminished. No: Accessory Muscle Use, SOB, Tachypnea, Wheezes Gastrointestinal: Yes: WNL, Normal Bowel Sounds, Soft. No: Distention, Tenderness Genitourinary: Yes: Incontinence Extremities: Yes: Deformity (contracted) Edema: No Neurological: Yes: Aphasia, Lethargy, Pre-Existing Deficit Labs: CBC, BMP 05/31/18 06:15 05/31/18 06:15 INR, PTT INR 0.99 (0.83-1.09) 05/31/18 06:15 Assessment/Plan (1) Seizure Assessment/Plan: seizure at home, on keppra 750bid was on kelfex at home for uti d/c ceftriaxone neuro consult pending crcl 44, keppra renal dosed 750 bid Code(s): R56.9 - UNSPECIFIED CONVULSIONS (2) Fever Assessment/Plan: unclear source possibly 2/2 seizure blood/urine cultures pending ua neg, chest xray neg ID consulted Code(s): R50.9 - FEVER, UNSPECIFIED Qualifiers: Encounter type: initial encounter (1) Sepsis Assessment/Plan: febrile, tachycardic, tachypneic as above Code(s): A41.9 - SEPSIS, UNSPECIFIED ORGANISM Qualifiers: Sepsis type: sepsis due to unspecified organism Qualified Code(s): A41.9 - Sepsis, unspecified organis (3) Hypertension Assessment/Plan: controlled continue metoprolol Code(s): I10 - ESSENTIAL (PRIMARY) HYPERTENSION Qualifiers: Hypertension type: essential hypertension Qualified Code(s): I10 - Essential (primary) hypertension (4) Dementia Assessment/Plan: pt non verbal, bed-bound dysphagia pureed diet Code(s): F03.90 - UNSPECIFIED DEMENTIA WITHOUT BEHAVIORAL DISTURBANCE Qualifiers: Dementia behavioral disturbance: without behavioral disturbance (5) Seizure disorder Assessment/Plan: acute on chronic as above Code(s): G40.909 - EPILEPSY, UNSP, NOT INTRACTABLE, WITHOUT STATUS EPILEPTICUS (6) Functional quadriplegia Assessment/Plan: 2/2 advanced dementia Code(s): R53.2 - FUNCTIONAL QUADRIPLEGIA Dispo: home w/ IOS SOFTWARE ENGINEER.
[2018-05-31 12:17] LABS: ACANTHOCYTES 0; ANISOCYTOSIS 0; HELMET CELLS 0; HOWELL-JOLLY BODIES 0; MACROCYTOSIS 0; OVALOCYTE 0; PLATELET ESTIMATE NORMAL; ROULEAU 0; SICKELED CELLS 0; TARGET CELLS 0; TEAR DROP CELLS 0; TOXIC GRANULATION 0
--- NOTE | 2018-05-31 13:21 | EKG ---
Test Reason : Blood Pressure : / mmHG Vent. Rate : 107 BPM Atrial Rate : 107 BPM P-R Int : 196 ms QRS Dur : 080 ms QT Int : 348 ms P-R-T Axes : 052 011 005 degrees QTc Int : 464 ms SINUS TACHYCARDIA ANTERIOR INFARCT (CITED ON OR BEFORE 30-DEC-2015) ABNORMAL ECG WHEN COMPARED WITH ECG OF 23-MAY-2018 09:26, PREMATURE SUPRAVENTRICULAR COMPLEXES ARE NO LONGER PRESENT Confirmed by LEANNE GIBBONS, KEYONNA ([id number]) on 05/31/2018 1:21:24 PM Referred By: Confirmed By:KEYONNA PERDOMO MD
[2018-05-31] MEDS: ZONISAMIDE 100 MG/10 ML ORAL SUSPENSION PO SCH (23:36)
[2018-05-31] MEDS: SENNOSIDES 8.6MG TABLET (FP) PO SCH (23:36)
[2018-05-31] MEDS: levETIRAcetam 250 MG TABLET (FP) PO SCH (23:36)
[2018-06-01] MEDS: ACETAMINOPHEN 325 MG TABLET (FP) PO PRN ×2 (06:48→22:21)
[2018-06-01 07:26] LABS: BASO % 0.7 % (0-2.0); EOS % 1.6 % (0-4.5); HEMATOCRIT 36.5 % (32.4-45.2); HEMOGLOBIN 12.3 GM/dL (10.7-15.3); LYMPH % 13.7 % (8-40); MCHC 33.6 g/dl (32.0-36.0); MEAN CELL VOLUME 86.1 fl (80-96); MEAN PLT VOLUME 7.1 fl (7.5-11.1); MONO % 9.1 % (3.8-10.2); NEUT % 74.9 % (42.8-82.8); PLATELET COUNT 273 K/MM3 (134-434); RBC 4.24 M/mm3 (3.60-5.2); RDW 13.5 % (11.6-15.6); WHITE BLOOD COUNT 11.4 K/mm3 (4.0-10.0)
[2018-06-01 07:58] LABS: ALBUMIN 2.8 g/dl (3.4-5.0); ALK PHOS 105 U/L (45-117); ANION GAP 9 MMOL/L (8-16); BILIRUBIN,TOTAL 0.4 mg/dL (0.2-1); BLOOD UREA NITROGEN 9 mg/dL (7-18); CALCIUM 8.2 mg/dL (8.5-10.1); CHLORIDE 105 mmol/L (98-107); CO2 22 mmol/L (21-32); CREATININE 0.7 mg/dL (0.55-1.3); GLUCOSE,RANDOM 125 mg/dL (74-106); MAGNESIUM 1.9 mg/dL (1.8-2.4); POTASSIUM 4.3 mmol/L (3.5-5.1); SGOT/AST 29 U/L (15-37); SGPT/ALT 29 U/L (13-61); SODIUM 136 mmol/L (136-145); TOT PROT 7.1 g/dl (6.4-8.2)
[2018-06-01] MEDS: metoPROLOL SUCCINATE 25 MG TAB.SR.24H (FP) PO SCH ×2 (11:27→22:21)
[2018-06-01] MEDS: ASPIRIN 81 MG CHEWABLE TABLETS PO SCH (11:27)
[2018-06-01] MEDS: levETIRAcetam 250 MG TABLET (FP) PO SCH ×2 (11:27→22:21)
[2018-06-01] MEDS: ZONISAMIDE 100 MG/10 ML ORAL SUSPENSION PO SCH ×2 (12:02→22:38)
[2018-06-01 12:59] LABS: ACANTHOCYTES 0; ANISOCYTOSIS 0; HELMET CELLS 0; HOWELL-JOLLY BODIES 0; MACROCYTOSIS 0; OVALOCYTE 0; PLATELET ESTIMATE NORMAL; ROULEAU 0; SICKELED CELLS 0; TARGET CELLS 0; TEAR DROP CELLS 0; TOXIC GRANULATION 0
--- NOTE | 2018-06-01 13:04 | PN ---
Progress Note, Physician Chief Complaint: Pt lying in bed in no acute distress. unable to obtain 2/2 advanced dementia. WOOD PATTERNMAKER at bedside - Current Medication List Current Medications: Active Medications Acetaminophen (Tylenol -) 650 mg PO Q4H PRN PRN Reason: PAIN Last Admin: 06/01/18 06:48 Dose: 650 mg Aspirin (Asa -) 81 mg PO DAILY [facility] Last Admin: 06/01/18 11:27 Dose: 81 mg Lactated Ringer's (Lactated Ringers Solution) 1,000 ml in 1,000 mls @ 75 mls/ hr IV ASDIR [facility] Last Admin: 05/31/18 23:37 Dose: Not Given Levetiracetam (Keppra -) 750 mg PO BID [facility] Last Admin: 06/01/18 11:27 Dose: 750 mg Metoprolol Succinate (Toprol Xl -) 25 mg PO BID [facility] Last Admin: 06/01/18 11:27 Dose: 25 mg Senna (Senna -) 3 tab PO HS [facility] Last Admin: 05/31/18 23:36 Dose: 3 tab Zonisamide (Zonisamide) 25 mg PO BID [facility] Last Admin: 06/01/18 12:02 Dose: 25 mg - Objective Vital Signs: Vital Signs Temperature 97.8 F 06/01/18 09:50 Pulse Rate 102 H 06/01/18 09:50 Respiratory Rate 18 06/01/18 09:50 Blood Pressure 135/78 06/01/18 09:50 O2 Sat by Pulse Oximetry (%) 100 05/31/18 21:00 Constitutional: Yes: No Distress, Calm Cardiovascular: Yes: Regular Rate and Rhythm, Murmur Respiratory: Yes: Regular, Diminished, Rhonchi (scattered). No: Accessory Muscle Use, SOB, Tachypnea, Wheezes Gastrointestinal: Yes: WNL, Normal Bowel Sounds. No: Soft, Distention, Tenderness Genitourinary: Yes: Incontinence Extremities: Yes: Deformity (contracted) Edema: No Neurological: Yes: Alert, Aphasia, Confusion, Pre-Existing Deficit Psychiatric: Yes: Alert Labs: CBC, BMP 06/01/18 06:00 06/01/18 06:00 INR, PTT INR 0.99 (0.83-1.09) 05/31/18 06:15 Assessment/Plan (1) Seizure Assessment/Plan: evaluated by neuro pt on max dose keppra zonisamide added outpt follow up Code(s): R56.9 - UNSPECIFIED CONVULSIONS (2) Fever Assessment/Plan: afebrile today possibly 2/2 seizure blood/urine cultures neg ua neg, chest xray neg wbc borderline elevation today,repeat ID consult pending Code(s): R50.9 - FEVER, UNSPECIFIED Qualifiers: Encounter type: initial encounter (3) Sepsis Assessment/Plan: improved as above Code(s): A41.9 - SEPSIS, UNSPECIFIED ORGANISM Qualifiers: Sepsis type: sepsis due to unspecified organism Qualified Code(s): A41.9 - Sepsis, unspecified organis (4) Hypertension Assessment/Plan: controlled continue metoprolol Code(s): I10 - ESSENTIAL (PRIMARY) HYPERTENSION Qualifiers: Hypertension type: essential hypertension Qualified Code(s): I10 - Essential (primary) hypertension (5) Dementia Assessment/Plan: pt non verbal, bed-bound dysphagia pureed diet Code(s): F03.90 - UNSPECIFIED DEMENTIA WITHOUT BEHAVIORAL DISTURBANCE Qualifiers: Dementia behavioral disturbance: without behavioral disturbance (6) Seizure disorder Assessment/Plan: acute on chronic as above Code(s): G40.909 - EPILEPSY, UNSP, NOT INTRACTABLE, WITHOUT STATUS EPILEPTICUS (7) Functional quadriplegia Assessment/Plan: 2/2 advanced dementia Code(s): R53.2 - FUNCTIONAL QUADRIPLEGIA Dispo: home w/ WOOD PATTERNMAKER
[2018-06-01 14:03] LABS: BASO % 0.6 % (0-2.0); EOS % 2.4 % (0-4.5); HEMATOCRIT 32.5 % (32.4-45.2); HEMOGLOBIN 11.1 GM/dL (10.7-15.3); LYMPH % 14.3 % (8-40); MCH 29.2 pg (25.7-33.7); MEAN CELL VOLUME 85.9 fl (80-96); MEAN PLT VOLUME 6.7 fl (7.5-11.1); MONO % 12.8 % (3.8-10.2); NEUT % 69.9 % (42.8-82.8); PLATELET COUNT 222 K/MM3 (134-434); RBC 3.79 M/mm3 (3.60-5.2); RDW 13.9 % (11.6-15.6); WHITE BLOOD COUNT 10.8 K/mm3 (4.0-10.0)
[2018-06-01] MEDS: LACTATED RINGERS SOLUTION 1,000 ML/1,000 ML INFUS.BAG IV SCH ×2 (16:00→22:02)
[2018-06-01 16:18] VITALS: BMI 22.3
[2018-06-01] MEDS: SENNOSIDES 8.6MG TABLET (FP) PO SCH (22:21)
--- NOTE | 2018-06-01 23:24 | PN ---
Progress Note (short form) - Note Progress Note: ID CONSULT DICTATED LOW GRADE FEVER ? SOURCE S/P SEIZURE ACTIVITY E. COLI UTI -TREATED OBSERVE OFF ANTIBIOTICS AWAIT REPEAT BC ASP PRECAUTIONS
[2018-06-02] MEDS: LACTATED RINGERS SOLUTION 1,000 ML/1,000 ML INFUS.BAG IV SCH (05:49)
[2018-06-02 08:00] LABS: BASO % 1.1 % (0-2.0); EOS % 3.3 % (0-4.5); HEMATOCRIT 33.8 % (32.4-45.2); HEMOGLOBIN 11.8 GM/dL (10.7-15.3); LYMPH % 15.2 % (8-40); MCH 30.4 pg (25.7-33.7); MCHC 34.8 g/dl (32.0-36.0); MEAN CELL VOLUME 87.2 fl (80-96); MEAN PLT VOLUME 7.6 fl (7.5-11.1); MONO % 14.6 % (3.8-10.2); NEUT % 65.8 % (42.8-82.8); PLATELET COUNT 245 K/MM3 (134-434); RBC 3.88 M/mm3 (3.60-5.2); RDW 13.5 % (11.6-15.6)
--- NOTE | 2018-06-02 08:15 | CONS ---
DATE OF CONSULTATION: 06/01/2018 HISTORY OF PRESENT ILLNESS: The patient is an 87-year-old female who is evaluated for low-grade fever. History was obtained from the chart as she cannot give a history secondary to dementia. She was recently admitted to [facility] from May 23 through May 26. She was diagnosed with an E coli urinary tract infection as an outpatient. She had been started on Macrobid. She was admitted to the hospital on May 23 after worsening anorexia, tachypnea and fever. She was treated with a course of ceftriaxone and switched to Keflex. She was discharged home on May 26, 2018, to complete a 10-day course of antibiotic therapy. At that time modified barium swallow was performed and showed moderate risk of aspiration. Patient was readmitted to the hospital on May 31, 2018, after having 2 episodes of generalized seizure activity. She was admitted to the hospital where her course was complicated by low-grade fever. She is unable to offer any additional details. No reports of shaking chills, cough, sputum production, vomiting, diarrhea, grossly purulent urine or infected decubitus ulcers. PAST MEDICAL HISTORY: Positive for dementia, seizure disorder, coronary artery disease, hypertension, hyperlipidemia. PAST SURGICAL HISTORY: Status post colostomy with reversal. ALLERGIES: No known allergies. MEDICATIONS: Toprol, alprazolam, aspirin, Keppra. SOCIAL HISTORY: Lives at home. Has a home health aide. Dependent in activities of daily living. LABORATORY DATA: White count 10.8, hematocrit 32.5, platelet count 222. Creatinine 0.7. Urinalysis negative. CAT scan of the head negative for acute infarct or bleed. Chest x-ray shows mild bilateral increased interstitial markings. PHYSICAL EXAMINATION: General: She is awake. She is not verbally responsive. Vital Signs: Temperature 98.6, blood pressure 129/74, pulse 109, respirations 19 per minute. HEENT: Sclerae are anicteric. Cardiac: Heart sounds tachycardic, S1, S2. Lungs: Grossly clear. Abdomen: Soft. No tenderness elicited. Extremities: Negative for edema. Positive contractures. No infected decubitus ulcers. IMPRESSION: 1. Low-grade fever, unclear source. 2. Status post seizure activity. 3. Escherichia coli urinary tract infection, treated. 4. Dementia. RECOMMENDATIONS: Will observe off antibiotic therapy. Await repeat blood cultures. Followup chest x-ray. Aspiration precautions. Will follow. Thank you for the kind referral. JEAN PINEDA M.D. DANE/[id number]
[2018-06-02 08:32] LABS: ANION GAP 11 MMOL/L (8-16); BLOOD UREA NITROGEN 10 mg/dL (7-18); CHLORIDE 104 mmol/L (98-107); CO2 19 mmol/L (21-32); CREATININE 0.8 mg/dL (0.55-1.3); GLUCOSE,RANDOM 132 mg/dL (74-106); POTASSIUM 3.8 mmol/L (3.5-5.1); SODIUM 135 mmol/L (136-145)
[2018-06-02] MEDS: levETIRAcetam 250 MG TABLET (FP) PO SCH ×2 (11:20→22:10)
--- NOTE | 2018-06-02 11:36 | PN ---
Progress Note, Physician Chief Complaint: Pt lying in bed in no acute distress. unable to obtain 2/2 advanced dementia. DIE SINKER APPRENTICE at bedside - Current Medication List Current Medications: Active Medications Acetaminophen (Tylenol -) 650 mg PO Q4H PRN PRN Reason: PAIN Last Admin: 06/01/18 22:21 Dose: 650 mg Aspirin (Asa -) 81 mg PO DAILY [facility] Last Admin: 06/01/18 11:27 Dose: 81 mg Lactated Ringer's (Lactated Ringers Solution) 1,000 ml in 1,000 mls @ 75 mls/ hr IV ASDIR [facility] Last Admin: 06/02/18 05:49 Dose: 75 mls/hr Levetiracetam (Keppra -) 750 mg PO BID [facility] Last Admin: 06/01/18 22:21 Dose: 750 mg Metoprolol Succinate (Toprol Xl -) 25 mg PO BID [facility] Last Admin: 06/01/18 22:21 Dose: 25 mg Senna (Senna -) 3 tab PO HS [facility] Last Admin: 06/01/18 22:21 Dose: 3 tab Zonisamide (Zonisamide) 25 mg PO BID [facility] Last Admin: 06/01/18 22:38 Dose: 25 mg - Objective Vital Signs: Vital Signs Temperature 98.9 F 06/02/18 05:52 Pulse Rate 109 H 06/02/18 05:52 Respiratory Rate 19 06/02/18 05:52 Blood Pressure 129/74 06/02/18 05:52 O2 Sat by Pulse Oximetry (%) 98 06/01/18 21:00 Constitutional: Yes: No Distress Cardiovascular: Yes: Regular Rate and Rhythm, Murmur Respiratory: Yes: Regular, Diminished. No: Accessory Muscle Use, SOB, Tachypnea , Wheezes Gastrointestinal: Yes: WNL, Normal Bowel Sounds, Soft. No: Distention, Tenderness Genitourinary: Yes: Incontinence Extremities: Yes: Deformity (contracted), Erythema (left big toe w/ erythema, blister) Edema: Yes Edema: LLE: Trace, RLE: Trace Neurological: Yes: Alert, Aphasia, Confusion, Pre-Existing Deficit Psychiatric: Yes: Alert Labs: CBC, BMP 06/02/18 06:00 06/02/18 06:00 INR, PTT INR 0.99 (0.83-1.09) 05/31/18 06:15 Assessment/Plan (1) Seizure Assessment/Plan: evaluated by neuro pt on max dose keppra zonisamide outpt follow up Code(s): R56.9 - UNSPECIFIED CONVULSIONS (2) Fever Assessment/Plan: febrile overnight, wbc count 12 unclear source Left big toe- erythema/blister xray of foot, esr, uric acid ordered blood/urine cultures neg repeat chest xray possible aspiration monitor off antibx per ID Code(s): R50.9 - FEVER, UNSPECIFIED Qualifiers: Encounter type: initial encounter (3) Leukocytosis Assessment/Plan: as above Code(s): D72.829 - ELEVATED WHITE BLOOD CELL COUNT, UNSPECIFIED (4) Hypertension Assessment/Plan: controlled continue metoprolol Code(s): I10 - ESSENTIAL (PRIMARY) HYPERTENSION Qualifiers: Hypertension type: essential hypertension Qualified Code(s): I10 - Essential (primary) hypertension (5) Dementia Assessment/Plan: pt non verbal, bed-bound dysphagia pureed diet Code(s): F03.90 - UNSPECIFIED DEMENTIA WITHOUT BEHAVIORAL DISTURBANCE Qualifiers: Dementia behavioral disturbance: without behavioral disturbance (6) Seizure disorder Assessment/Plan: acute on chronic as above Code(s): G40.909 - EPILEPSY, UNSP, NOT INTRACTABLE, WITHOUT STATUS EPILEPTICUS (7) Functional quadriplegia Assessment/Plan: 2/2 advanced dementia Code(s): R53.2 - FUNCTIONAL QUADRIPLEGIA Dispo: home w/ DIE SINKER APPRENTICE when ID cleared
--- NOTE | 2018-06-02 11:42 | PN ---
Progress Note, Physician History of Present Illness: Awake but not verbally responsive Low grade temp overnight 100.5 WBC increased 12K Breathing non-labored. No cough noted No diarrhea BC no growth - Current Medication List Current Medications: Active Medications Acetaminophen (Tylenol -) 650 mg PO Q4H PRN PRN Reason: PAIN Last Admin: 06/01/18 22:21 Dose: 650 mg Aspirin (Asa -) 81 mg PO DAILY [facility] Last Admin: 06/01/18 11:27 Dose: 81 mg Lactated Ringer's (Lactated Ringers Solution) 1,000 ml in 1,000 mls @ 75 mls/ hr IV ASDIR [facility] Last Admin: 06/02/18 05:49 Dose: 75 mls/hr Levetiracetam (Keppra -) 750 mg PO BID [facility] Last Admin: 06/01/18 22:21 Dose: 750 mg Metoprolol Succinate (Toprol Xl -) 25 mg PO BID [facility] Last Admin: 06/01/18 22:21 Dose: 25 mg Senna (Senna -) 3 tab PO HS [facility] Last Admin: 06/01/18 22:21 Dose: 3 tab Zonisamide (Zonisamide) 25 mg PO BID [facility] Last Admin: 06/01/18 22:38 Dose: 25 mg - Objective Vital Signs: Vital Signs Temperature 98.9 F 06/02/18 05:52 Pulse Rate 109 H 06/02/18 05:52 Respiratory Rate 19 06/02/18 05:52 Blood Pressure 129/74 06/02/18 05:52 O2 Sat by Pulse Oximetry (%) 98 06/01/18 21:00 Constitutional: Yes: No Distress Eyes: Yes: Conjunctiva Clear Cardiovascular: Yes: Regular Rate and Rhythm, S1, S2 Respiratory: Yes: CTA Bilaterally Gastrointestinal: Yes: Normal Bowel Sounds, Soft, Abdomen, Obese Extremities: Yes: Other (+ slight erythema L great toe. + bullous lesion L great toe) Integumentary: Yes: Other (3 small (approx 1cm) annular lesions L buttock no vesicles) Labs: CBC, BMP 06/02/18 06:00 06/02/18 06:00 INR, PTT INR 0.99 (0.83-1.09) 05/31/18 06:15 Assessment/Plan Low grade fever/ leukocytosis ? source ? aspiration S/P seizures S/P UTI Repeat BC, CXR Observe off antibiotics Aspiration precautions
[2018-06-02] MEDS ORDERED: PT OWN MED DRAWER 7, Y5N ONE ×2 (11:48→18:06)
[2018-06-02 12:01] LABS: ANISOCYTOSIS 1+; MACROCYTOSIS 0; PLATELET ESTIMATE NORMAL
[2018-06-02] MEDS ORDERED: POTASSIUM CHLORIDE ORAL LIQUID 20 MEQ/15 ML PO ONE (12:18)
[2018-06-02] MEDS: ASPIRIN 81 MG CHEWABLE TABLETS PO SCH (12:21)
[2018-06-02] MEDS: metoPROLOL SUCCINATE 25 MG TAB.SR.24H (FP) PO SCH ×2 (12:21→22:10)
[2018-06-02] MEDS: ZONISAMIDE 100 MG/10 ML ORAL SUSPENSION PO SCH ×2 (12:24→22:45)
[2018-06-02 13:42] LABS: URIC ACID 3.7 mg/dL (2.6-7.2)
[2018-06-02] MEDS ORDERED: VANCOMYCIN 1 GRAM (PRE-DOCKED) 1,000 MG/250 ML BAG IVPB ONE (16:27)
[2018-06-02] MEDS: SENNOSIDES 8.6MG TABLET (FP) PO SCH (22:10)
[2018-06-02] MEDS: ACETAMINOPHEN 325 MG TABLET (FP) PO PRN (22:11)
[2018-06-03 07:38] LABS: EOS % 2.2 % (0-4.5); HEMATOCRIT 34.3 % (32.4-45.2); HEMOGLOBIN 11.8 GM/dL (10.7-15.3); LYMPH % 12.6 % (8-40); MCH 29.5 pg (25.7-33.7); MCHC 34.5 g/dl (32.0-36.0); MEAN CELL VOLUME 85.7 fl (80-96); MEAN PLT VOLUME 7.5 fl (7.5-11.1); MONO % 14.2 % (3.8-10.2); PLATELET COUNT 247 K/MM3 (134-434); RDW 13.7 % (11.6-15.6); WHITE BLOOD COUNT 12.4 K/mm3 (4.0-10.0)
[2018-06-03 08:01] LABS: ANION GAP 7 MMOL/L (8-16); BLOOD UREA NITROGEN 10 mg/dL (7-18); CALCIUM 8.1 mg/dL (8.5-10.1); CHLORIDE 105 mmol/L (98-107); CO2 22 mmol/L (21-32); CREATININE 0.7 mg/dL (0.55-1.3); GLUCOSE,RANDOM 111 mg/dL (74-106); MAGNESIUM 2.1 mg/dL (1.8-2.4); POTASSIUM 4.5 mmol/L (3.5-5.1); SODIUM 134 mmol/L (136-145)
[2018-06-03] MEDS ORDERED: PT OWN MED DRAWER 7, Y5N ONE (09:21)
[2018-06-03] MEDS: ASPIRIN 81 MG CHEWABLE TABLETS PO SCH (09:22)
[2018-06-03] MEDS: metoPROLOL SUCCINATE 25 MG TAB.SR.24H (FP) PO SCH ×2 (09:22→22:00)
[2018-06-03] MEDS: levETIRAcetam 250 MG TABLET (FP) PO SCH ×2 (09:22→22:00)
[2018-06-03] MEDS: ZONISAMIDE 100 MG/10 ML ORAL SUSPENSION PO SCH ×2 (09:22→22:00)
[2018-06-03 11:16] LABS: ANISOCYTOSIS 0; MACROCYTOSIS 0; PLATELET ESTIMATE NORMAL
[2018-06-03 12:01] LABS: ERYTHROCYTE SEDIMENTATION RATE 42 mm/hr (0-30)
--- NOTE | 2018-06-03 15:57 | PN ---
Progress Note, Physician Chief Complaint: Unable to obtain - Current Medication List Current Medications: Active Medications Acetaminophen (Tylenol -) 650 mg PO Q4H PRN PRN Reason: PAIN Last Admin: 06/02/18 22:11 Dose: 650 mg Aspirin (Asa -) 81 mg PO DAILY [facility] Last Admin: 06/03/18 09:22 Dose: 81 mg Levetiracetam (Keppra -) 750 mg PO BID [facility] Last Admin: 06/03/18 09:22 Dose: 750 mg Metoprolol Succinate (Toprol Xl -) 25 mg PO BID [facility] Last Admin: 06/03/18 09:22 Dose: 25 mg Senna (Senna -) 3 tab PO HS [facility] Last Admin: 06/02/18 22:10 Dose: 3 tab Zonisamide (Zonisamide) 25 mg PO BID [facility] Last Admin: 06/03/18 09:22 Dose: 25 mg - Objective Vital Signs: Vital Signs Temperature 36.7 C 06/03/18 14:42 Pulse Rate 111 H 06/03/18 14:42 Respiratory Rate 22 H 06/03/18 14:42 Blood Pressure 109/92 06/03/18 14:42 O2 Sat by Pulse Oximetry (%) 95 06/03/18 09:00 Constitutional: Yes: Well Nourished, No Distress, Calm Cardiovascular: Yes: Regular Rate and Rhythm. No: Gallop, Murmur, Rub Respiratory: Yes: Regular, CTA Bilaterally. No: Rales, Rhonchi, Wheezes Gastrointestinal: Yes: Normal Bowel Sounds, Soft. No: Distention, Tenderness Extremities: Yes: Erythema (L foot and first toe, improved today), Other ( blister on L first toe with fluid collection on dorsal side) Labs: CBC, BMP 06/03/18 06:00 06/03/18 06:00 INR, PTT INR 0.99 (0.83-1.09) 05/31/18 06:15 Assessment/Plan (1) Seizure Assessment/Plan: -evaluated by neuro -pt on max dose keppra -zonisamide -outpt follow up Code(s): R56.9 - UNSPECIFIED CONVULSIONS (2) Fever Assessment/Plan: -? if cellulitis of foot -no fevers currently, did receive dose on vancomycin yesterday -continue to monitor Code(s): R50.9 - FEVER, UNSPECIFIED Qualifiers: Encounter type: initial encounter (3) Leukocytosis Assessment/Plan: -stable Code(s): D72.829 - ELEVATED WHITE BLOOD CELL COUNT, UNSPECIFIED (4) Hypertension Assessment/Plan: -controlled -continue metoprolol Code(s): I10 - ESSENTIAL (PRIMARY) HYPERTENSION Qualifiers: Hypertension type: essential hypertension Qualified Code(s): I10 - Essential (primary) hypertension (5) Dementia Assessment/Plan: -pt non verbal, bed-bound -dysphagia pureed diet Code(s): F03.90 - UNSPECIFIED DEMENTIA WITHOUT BEHAVIORAL DISTURBANCE Qualifiers: Dementia behavioral disturbance: without behavioral disturbance (6) Seizure disorder Assessment/Plan: -acute on chronic -as above Code(s): G40.909 - EPILEPSY, UNSP, NOT INTRACTABLE, WITHOUT STATUS EPILEPTICUS (7) Functional quadriplegia Assessment/Plan: -2/2 advanced dementia Code(s): R53.2 - FUNCTIONAL QUADRIPLEGIA (8) Cellulitis of L foot -unclear if cellulitis at this time -concerning though with blistering and fevers -uric acid normal, ESR elevated but not severely elevated -ID following -consult podiatry Dispo: home w/ MEDICAL BILL PROCESSOR when ID cleared
[2018-06-03] MEDS: SENNOSIDES 8.6MG TABLET (FP) PO SCH (22:00)
[2018-06-04 07:22] LABS: BASO % 1.3 % (0-2.0); EOS % 3.2 % (0-4.5); HEMATOCRIT 30.5 % (32.4-45.2); HEMOGLOBIN 10.8 GM/dL (10.7-15.3); LYMPH % 19.9 % (8-40); MCH 30.9 pg (25.7-33.7); MCHC 35.6 g/dl (32.0-36.0); MEAN CELL VOLUME 86.8 fl (80-96); MEAN PLT VOLUME 7.7 fl (7.5-11.1); MONO % 17.2 % (3.8-10.2); NEUT % 58.4 % (42.8-82.8); PLATELET COUNT 226 K/MM3 (134-434); RBC 3.51 M/mm3 (3.60-5.2); RDW 13.6 % (11.6-15.6); WHITE BLOOD COUNT 8.6 K/mm3 (4.0-10.0)
[2018-06-04 07:45] LABS: ANION GAP 6 MMOL/L (8-16); BLOOD UREA NITROGEN 12 mg/dL (7-18); CALCIUM 7.4 mg/dL (8.5-10.1); CHLORIDE 106 mmol/L (98-107); CO2 22 mmol/L (21-32); CREATININE 0.8 mg/dL (0.55-1.3); GLUCOSE,RANDOM 90 mg/dL (74-106); MAGNESIUM 2.1 mg/dL (1.8-2.4); PHOSPHOROUS 3.6 mg/dL (2.5-4.9); SODIUM 135 mmol/L (136-145)
[2018-06-04 10:32] LABS: ANISOCYTOSIS 0; MACROCYTOSIS 0; PLATELET ESTIMATE NORMAL
[2018-06-04] MEDS ORDERED: PT OWN MED DRAWER 7, Y5N ONE ×2 (10:44→11:43)
[2018-06-04] MEDS: levETIRAcetam 250 MG TABLET (FP) PO SCH ×2 (10:59→22:07)
[2018-06-04] MEDS: metoPROLOL SUCCINATE 25 MG TAB.SR.24H (FP) PO SCH ×2 (11:00→11:46)
[2018-06-04] MEDS: ASPIRIN 81 MG CHEWABLE TABLETS PO SCH (11:00)
[2018-06-04] MEDS: ZONISAMIDE 100 MG/10 ML ORAL SUSPENSION PO SCH ×2 (11:01→22:07)
[2018-06-04] MEDS: METOPROLOL TARTRATE 25 MG TABLET (FP) PO SCH ×2 (13:58→22:07)
--- NOTE | 2018-06-04 16:12 | PN ---
Progress Note, Physician Chief Complaint: Unable to obtain - Current Medication List Current Medications: Active Medications Acetaminophen (Tylenol -) 650 mg PO Q4H PRN PRN Reason: PAIN Last Admin: 06/02/18 22:11 Dose: 650 mg Aspirin (Asa -) 81 mg PO DAILY [facility] Last Admin: 06/04/18 11:00 Dose: 81 mg Levetiracetam (Keppra -) 750 mg PO BID [facility] Last Admin: 06/04/18 10:59 Dose: 750 mg Metoprolol Tartrate (Lopressor -) 25 mg PO BID [facility] Last Admin: 06/04/18 13:58 Dose: 25 mg Senna (Senna -) 3 tab PO HS [facility] Last Admin: 06/03/18 22:00 Dose: 3 tab Zonisamide (Zonisamide) 25 mg PO BID [facility] Last Admin: 06/04/18 11:01 Dose: 25 mg - Objective Vital Signs: Vital Signs Temperature 38.3 C H 06/04/18 15:55 Pulse Rate 105 H 06/04/18 13:52 Respiratory Rate 24 H 06/04/18 13:52 Blood Pressure 149/92 06/04/18 13:52 O2 Sat by Pulse Oximetry (%) 96 06/04/18 11:00 Constitutional: Yes: Well Nourished, No Distress, Calm Cardiovascular: Yes: Regular Rate and Rhythm. No: Gallop, Murmur, Rub Respiratory: Yes: Regular, CTA Bilaterally. No: Rales, Rhonchi, Wheezes Gastrointestinal: Yes: Normal Bowel Sounds, Soft. No: Distention, Tenderness Extremities: Yes: Erythema (improved today) Edema: No Labs: CBC, BMP 06/04/18 05:45 06/04/18 05:45 INR, PTT INR 0.99 (0.83-1.09) 05/31/18 06:15 Assessment/Plan (1) Seizure Assessment/Plan: -evaluated by neuro -pt on max dose keppra -zonisamide -outpt follow up Code(s): R56.9 - UNSPECIFIED CONVULSIONS (2) Fever Assessment/Plan: -has elevated temperature rectally -monitor off antibiotics -ID following Code(s): R50.9 - FEVER, UNSPECIFIED Qualifiers: Encounter type: initial encounter (3) Leukocytosis Assessment/Plan: -improved today Code(s): D72.829 - ELEVATED WHITE BLOOD CELL COUNT, UNSPECIFIED (4) Hypertension Assessment/Plan: -controlled -continue metoprolol Code(s): I10 - ESSENTIAL (PRIMARY) HYPERTENSION Qualifiers: Hypertension type: essential hypertension Qualified Code(s): I10 - Essential (primary) hypertension (5) Dementia Assessment/Plan: -pt non verbal, bed-bound -dysphagia pureed diet Code(s): F03.90 - UNSPECIFIED DEMENTIA WITHOUT BEHAVIORAL DISTURBANCE Qualifiers: Dementia behavioral disturbance: without behavioral disturbance (6) Seizure disorder Assessment/Plan: -acute on chronic -as above Code(s): G40.909 - EPILEPSY, UNSP, NOT INTRACTABLE, WITHOUT STATUS EPILEPTICUS (7) Functional quadriplegia Assessment/Plan: -2/2 advanced dementia Code(s): R53.2 - FUNCTIONAL QUADRIPLEGIA (8) Cellulitis of L foot -appreciate podiatry assistance -x-ray not showing signs of osteo -monitor off antibiotics Dispo: home w/ HVAC MANAGER when ID cleared
--- NOTE | 2018-06-04 16:45 | CONSULT ---
Consult - text type - Consultation Consultation Note: Podiatry Consultation: Pleasant 87 year old non-verbal F seen/evaluated at bedside with [employer] SPENCE. Patient presented for admission for witnessed seizures at home. Podiatry consultation requested for fungal nails and a pressure blister on the right great toe, unknown origin or duration. Currently afebrile. PMHx: seizure disorder, dementia, aphasia, CAD, and HTN Meds: noted ALL: NKMA GISELL: Pedal pulses 1/4, TG wnl, CFT brisk to all toes. There is a serous pressure blister on the dorsal IPJ of the hallux, no tenderness elicited, no karyna purulence, mild periwound erythema to the digit, no streaking cellulitis, no signs of active infection. Nails are elongated, discolored, thickened with subungual debris, brittle, tender to palpation x 10. No nail bed ulcers, no signs of infection. R foot XR: no evidence of osteomyelitis Imp: 87 year old F with R great toe pressure blister, onychomycosis 1. With informed consent obtained from daughter via phone consent, incision and drainage of right great toe performed utilizing sterile scissors. All serous drainage expressed from site. No purulence noted. Manual debridement of mycotic nails x 10 using nail nipper. Patient tolerated the procedures well without complications. 2. Rx bactroban + dry gauze daily to R great toe 3. Recommend offloading measures with suspension boots. 4. Patient can f/u upon discharge with me in wound healing center. [phone]. Nora Henderson DPM
[2018-06-04] MEDS: ACETAMINOPHEN 325 MG TABLET (FP) PO PRN (20:01)
[2018-06-04] MEDS: SENNOSIDES 8.6MG TABLET (FP) PO SCH (22:07)
[2018-06-05 08:17] LABS: HEMATOCRIT 29.6 % (32.4-45.2); HEMOGLOBIN 10.3 GM/dL (10.7-15.3); MCH 30.1 pg (25.7-33.7); MCHC 34.6 g/dl (32.0-36.0); MEAN CELL VOLUME 87.1 fl (80-96); MEAN PLT VOLUME 7.6 fl (7.5-11.1); PLATELET COUNT 261 K/MM3 (134-434); RDW 13.7 % (11.6-15.6); WHITE BLOOD COUNT 7.4 K/mm3 (4.0-10.0)
[2018-06-05] MEDS ORDERED: PT OWN MED DRAWER 7, Y5N ONE ×2 (08:48→21:22)
[2018-06-05 08:55] LABS: ANION GAP 7 MMOL/L (8-16); BLOOD UREA NITROGEN 16 mg/dL (7-18); CALCIUM 8.1 mg/dL (8.5-10.1); CHLORIDE 108 mmol/L (98-107); CO2 24 mmol/L (21-32); CREATININE 0.8 mg/dL (0.55-1.3); GLUCOSE,RANDOM 98 mg/dL (74-106); MAGNESIUM 2.4 mg/dL (1.8-2.4); PHOSPHOROUS 3.8 mg/dL (2.5-4.9); POTASSIUM 4.2 mmol/L (3.5-5.1); SODIUM 139 mmol/L (136-145)
[2018-06-05] MEDS: levETIRAcetam 250 MG TABLET (FP) PO SCH ×2 (09:00→23:35)
[2018-06-05] MEDS: ZONISAMIDE 100 MG/10 ML ORAL SUSPENSION PO SCH ×2 (09:01→23:35)
[2018-06-05] MEDS: ASPIRIN 81 MG CHEWABLE TABLETS PO SCH (09:01)
[2018-06-05] MEDS: METOPROLOL TARTRATE 25 MG TABLET (FP) PO SCH ×2 (09:01→23:37)
--- NOTE | 2018-06-05 11:08 | PN ---
Progress Note, Physician Chief Complaint: Pt lying in bed in no acute distress. unable to obtain 2/2 advanced dementia. LOG CHAIN FEEDER at bedside - Current Medication List Current Medications: Active Medications Acetaminophen (Tylenol -) 650 mg PO Q4H PRN PRN Reason: PAIN Last Admin: 06/04/18 20:01 Dose: 650 mg Aspirin (Asa -) 81 mg PO DAILY [facility] Last Admin: 06/05/18 09:01 Dose: 81 mg Levetiracetam (Keppra -) 750 mg PO BID [facility] Last Admin: 06/05/18 09:00 Dose: 750 mg Metoprolol Tartrate (Lopressor -) 25 mg PO BID [facility] Last Admin: 06/05/18 09:01 Dose: 25 mg Mupirocin (Bactroban 2% Ointment -) 1 applic TP DAILY [facility] Senna (Senna -) 3 tab PO HS [facility] Last Admin: 06/04/18 22:07 Dose: 3 tab Zonisamide (Zonisamide) 25 mg PO BID [facility] Last Admin: 06/05/18 09:01 Dose: 25 mg - Objective Vital Signs: Vital Signs Temperature 97.5 F L 06/05/18 09:00 Pulse Rate 114 H 06/05/18 09:00 Respiratory Rate 20 06/05/18 09:00 Blood Pressure 117/65 06/05/18 09:00 O2 Sat by Pulse Oximetry (%) 95 06/04/18 21:00 Constitutional: Yes: Well Nourished, No Distress Cardiovascular: Yes: Regular Rate and Rhythm, Murmur Respiratory: Yes: Regular, Diminished. No: Accessory Muscle Use, Rhonchi, SOB, Tachypnea, Wheezes Gastrointestinal: Yes: WNL, Normal Bowel Sounds, Soft. No: Distention, Tenderness Genitourinary: Yes: Incontinence Extremities: Yes: Deformity (contracted) Edema: RLE: Trace Integumentary: Yes: Erythema (right big toe erythema w/ increasing blister, appears blood filled) Wound/Incision: Yes: Reddened Neurological: Yes: Alert, Aphasia, Confusion, Pre-Existing Deficit Psychiatric: Yes: Alert Labs: CBC, BMP 06/05/18 06:15 06/05/18 06:15 INR, PTT INR 0.99 (0.83-1.09) 05/31/18 06:15 Assessment/Plan (1) Cellulitis Assessment/Plan: Left big toe- erythema/blister,s/p I&D of the clear blister by podiatry however now w/ larger blister in surrounding erythema/appears blood filled however the wound looks more erythematous w/ pain/edema x-ray does not reveal osteo case discussed w/ ID- pt started on zosyn podiatry following Code(s): L03.90 - CELLULITIS, UNSPECIFIED Qualifiers: Site of cellulitis: extremity Site of cellulitis of extremity: toe Laterality: right Qualified Code(s): L03.031 - Cellulitis of right toe (2) Seizure Assessment/Plan: evaluated by neuro pt on max dose keppra zonisamide outpt follow up Code(s): R56.9 - UNSPECIFIED CONVULSIONS (3) Fever Assessment/Plan: febrile overnight , unclear source possible 2/2 cellulitis blood/urine cultures neg chest/abdomen CT ordered speech eval as above Code(s): R50.9 - FEVER, UNSPECIFIED Qualifiers: Encounter type: initial encounter (4) Leukocytosis Assessment/Plan: as above Code(s): D72.829 - ELEVATED WHITE BLOOD CELL COUNT, UNSPECIFIED (5) Seizure Assessment/Plan: evaluated by neuro pt on max dose keppra zonisamide outpt follow up Code(s): R56.9 - UNSPECIFIED CONVULSIONS (6) Hypertension Assessment/Plan: controlled continue metoprolol Code(s): I10 - ESSENTIAL (PRIMARY) HYPERTENSION Qualifiers: Hypertension type: essential hypertension Qualified Code(s): I10 - Essential (primary) hypertension (7) Dementia Assessment/Plan: pt non verbal, bed-bound dysphagia pureed diet Code(s): F03.90 - UNSPECIFIED DEMENTIA WITHOUT BEHAVIORAL DISTURBANCE Qualifiers: Dementia behavioral disturbance: without behavioral disturbance (8) Seizure disorder Assessment/Plan: acute on chronic as above Code(s): G40.909 - EPILEPSY, UNSP, NOT INTRACTABLE, WITHOUT STATUS EPILEPTICUS (9) Functional quadriplegia Assessment/Plan: 2/2 advanced dementia Code(s): R53.2 - FUNCTIONAL QUADRIPLEGIA Dispo: home w/ LOG CHAIN FEEDER when ID cleared
[2018-06-05] MEDS ORDERED: LORazepam 2 MG/ML SDV VIAL IVPUSH PRN (11:10)
[2018-06-05] MEDS: MUPIROCIN 2% TOPICAL OINTMENT 22 GM TUBE TP SCH (11:31)
[2018-06-05 11:41] LABS: ACANTHOCYTES 0; ANISOCYTOSIS 0; HELMET CELLS 0; HOWELL-JOLLY BODIES 0; MACROCYTOSIS 0; OVALOCYTE 0; PLATELET ESTIMATE NORMAL; ROULEAU 0; SICKELED CELLS 0; TARGET CELLS 0; TEAR DROP CELLS 0; TOXIC GRANULATION 0
--- NOTE | 2018-06-05 11:59 | CONSULT ---
Admitting History and Physical - Primary Care Physician PCP: Yolande Bonilla - Admission History of Present Illness: 87 yo f w/ PMH dementia and sezure disorder who comes into the ED c/o 2 sequential seizures. Known to me from recent admission, at which time MBS, in fully upright, revealed brisk swallow with beth-pharyngeal dyscoordination with aspiration risk. Pt was on puree/thin liquids with rec to downgrade if cough noted to nectar thick liquid. Pt received thin liquid and puree at home per 2 INDUSTRIAL CUSTODIAN's. They reported that when she reclined, she coughed a lot and she was uncomfortable all the way up. They felt pt did best when fed elevated 1/2 way. They said pt coughed at times while eating. Awake but not verbally responsive Breathing non-labored. No cough noted Selected Entries 06/01/18 06/01/18 06/01/18 02:00 06:00 09:38 Breakfast 25% Lunch Supper Temperature 99.5 F 98.4 F 06/01/18 06/01/18 06/01/18 09:50 14:53 18:00 Breakfast Lunch 75% Supper Temperature 97.8 F 98.4 F 99.2 F 06/01/18 06/01/18 06/01/18 18:10 18:50 22:00 Breakfast Lunch Supper 100% Temperature 98.6 F 100.5 F H 06/01/18 06/02/18 06/02/18 23:45 02:00 05:52 Breakfast Lunch Supper Temperature 100.0 F H 99.8 F H 98.9 F 06/02/18 06/02/18 06/02/18 11:00 11:33 14:45 Breakfast 75% Lunch 75% Supper Temperature 99 F 99.9 F H 06/02/18 06/03/18 06/03/18 18:30 06:30 09:16 Breakfast 100% Lunch Supper 75% Temperature 98.9 F 06/03/18 06/03/18 06/03/18 14:42 18:00 18:27 Breakfast Lunch 25% Supper 50% Temperature 98.1 F 99.3 F 06/03/18 06/04/18 06/04/18 22:00 06:00 10:51 Breakfast Lunch Supper Temperature 99.2 F 99.5 F 99 F 06/04/18 06/04/18 06/04/18 11:21 13:18 15:55 Breakfast 50% Lunch 50% Supper Temperature 100.6 F H 97.9 F 100.9 F H 06/04/18 06/04/18 06/04/18 18:00 18:30 22:00 Breakfast Lunch Supper 50% Temperature 101.3 F H 100.2 F H 06/05/18 06/05/18 06/05/18 02:00 06:00 09:00 Breakfast Lunch Supper Temperature 98.5 F 99.9 F H 97.5 F L Laboratory Tests 06/01/18 06/02/18 06/03/18 06:00 06:00 06:00 WBC 11.4 H 12.0 H 12.4 H 06/04/18 06/05/18 05:45 06:15 WBC 8.6 7.4 Chest/ab/pelvis CT ordered today. 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: Yes: Dementia, Seizure, Syncope Cardiovascular: Yes: HTN, Hyperlipdemia Gastrointestinal: Yes: Diverticulitis Renal/: Yes: UTI ...: No Musculoskeletal: Yes: Other (All four extremities contracted) - Past Surgical History Past Surgical History: Yes: Colostomy ((Reversed)) - Advance Directives Advance Directives: Yes: DNR - Smoking History Smoking history: Never smoked Have you smoked in the past 12 months: No Aproximately how many cigarettes per day: 0 - Alcohol/Substance Use Hx Alcohol Use: No History of Substance Use: reports: None - Social History ADL: Support Services History of Recent Travel: No History - Admission Reason For Visit: SEIZURE DEMENTIA HTN FUNCTIONAL QUADRIPLEGIA - Diagnostics X-ray: Report Reviewed CT Scan: Pending - General Mental Status: Confused Attention: Moderate Impairment Ability to Follow Directions: Poor Head/Neck Control: Fair, Needs Assist - Hearing Hearing: Impaired Hearing Aide: No With Patient: No Speech Evaluation - Communication Primary Language: ITALIAN Communication: Yes: Non-Communicable - Speech Production Intelligibility: Yes: Severely Impaired - Speech Characteristics Voice Loudness: Normal Voice Pitch: Yes: Normal Voice Phonatory-based Quality: Yes: Normal - Language/Verbal Expression Able to Communicate Wants and Needs: Yes: Severely Impaired Functional Communication Status: Yes: Severely Impaired - Swallow Evaluation/Bedside Assessment Current Nutritional Intake: Dysphagia Pureed, Honey Textured Liquids Dentition: Yes: Adequate Facial Symmetry at Rest: Symmetrical Jaw Position: Open at Rest Laryngeal Movement: Able to Palpate, Labored,delay initiation Rate of Intake: Slow/Holding Bolus Size: Small Labial Seal: Impaired Bilaterally Oral Prep Time: Increased Coughing/Throat Clear: No Change in Voice: No Recommendations - Speech Evaluation, Impression/Plan Impression: Overtly pt tolerating puree and nectar thick during assessment on tsn with delayed but fairly brisk swallow, fed in 50 degree elevation of HOB by INDUSTRIAL CUSTODIAN. At present, puree/honey thick liquid ordered. Will assess CT chest results before upgrading to nectar thick liquid. - Disposition Discharge to: Home with Assist - Dysphagia Impressions/Plan Dysphagia Impressions: Risk of Aspiration, Ongoing Evaluation *Silent aspiration: cannot be R/O at bedside Dysphagia Treatment Plan: Elevate HOB during feed (Maintain HOB elevated at all times) - Recommendations Diet Consistency: Dysphagia Pureed Medication Administration: Crushed with applesauce Liquids: Honey Thick Supplement: Magic Cup, Ensure Pudding
--- NOTE | 2018-06-05 15:32 | PN ---
Progress Note, Physician History of Present Illness: Lethargic, not verbally responsive Temp overnight 101.3 WBC WNL Breathing non-labored. No cough noted No diarrhea BC no growth - Current Medication List Current Medications: Active Medications Acetaminophen (Tylenol -) 650 mg PO Q4H PRN PRN Reason: PAIN Last Admin: 06/04/18 20:01 Dose: 650 mg Aspirin (Asa -) 81 mg PO DAILY [facility] Last Admin: 06/05/18 09:01 Dose: 81 mg Levetiracetam (Keppra -) 750 mg PO BID [facility] Last Admin: 06/05/18 09:00 Dose: 750 mg Lorazepam (Ativan Injection -) 0.5 mg IVPUSH TID PRN PRN Reason: ANXIETY Metoprolol Tartrate (Lopressor -) 25 mg PO BID [facility] Last Admin: 06/05/18 09:01 Dose: 25 mg Mupirocin (Bactroban 2% Ointment -) 1 applic TP DAILY [facility] Last Admin: 06/05/18 11:31 Dose: 1 applic Senna (Senna -) 3 tab PO HS [facility] Last Admin: 06/04/18 22:07 Dose: 3 tab Zonisamide (Zonisamide) 25 mg PO BID [facility] Last Admin: 06/05/18 09:01 Dose: 25 mg - Objective Vital Signs: Vital Signs Temperature 97.5 F L 06/05/18 09:00 Pulse Rate 114 H 06/05/18 09:00 Respiratory Rate 20 06/05/18 09:00 Blood Pressure 117/65 06/05/18 09:00 O2 Sat by Pulse Oximetry (%) 95 06/04/18 21:00 Constitutional: Yes: No Distress Cardiovascular: Yes: Regular Rate and Rhythm, S1, S2 Respiratory: Yes: Diminished Gastrointestinal: Yes: Normal Bowel Sounds, Soft Extremities: Yes: Other (+ erythema R great toe with plantar surface hemorrhagic bulla) Labs: CBC, BMP 06/05/18 06:15 06/05/18 06:15 INR, PTT INR 0.99 (0.83-1.09) 05/31/18 06:15 Assessment/Plan Cellulitis R great toe ? aspiration S/P seizures S/P UTI Repeat BC Agree with CT C/A/P Empiric coverage skin, lung pathogens with vancomycin and zosyn Aspiration precautions Discussed with patient's daughter at bedside
[2018-06-05] MEDS ORDERED: DEXTROSE 5%-WATER - 50 ML IVPB ONE (17:23)
[2018-06-05] MEDS ORDERED: PIPERACILLIN/TAZOBACTAM 3.375 GM VIAL IVPB ONE (17:23)
[2018-06-05] MEDS: PIPERACILLIN/TAZOB 3.375 GM 3.375 GM in DEXTROSE 5%-WATER - 50 ML IVPB SCH (18:36)
[2018-06-05] MEDS: VANCOMYCIN 1 GRAM (PRE-DOCKED) 1,000 MG/250 ML BAG IVPB SCH (18:37)
[2018-06-05] MEDS: SENNOSIDES 8.6MG TABLET (FP) PO SCH (23:36)
[2018-06-05] MEDS: ACETAMINOPHEN 325 MG TABLET (FP) PO PRN (23:36)
[2018-06-06] MEDS ORDERED: PIPERACILLIN/TAZOBACTAM 3.375 GM VIAL IVPB ONE ×3 (00:59→17:02)
[2018-06-06] MEDS ORDERED: DEXTROSE 5%-WATER - 50 ML IVPB ONE ×3 (00:59→17:02)
[2018-06-06] MEDS: PIPERACILLIN/TAZOB 3.375 GM 3.375 GM in DEXTROSE 5%-WATER - 50 ML IVPB SCH ×3 (02:34→18:31)
[2018-06-06 07:47] LABS: BASO % 1.5 % (0-2.0); EOS % 11.9 % (0-4.5); HEMATOCRIT 29.4 % (32.4-45.2); LYMPH % 24.6 % (8-40); MCH 29.6 pg (25.7-33.7); MCHC 34.1 g/dl (32.0-36.0); MEAN CELL VOLUME 86.7 fl (80-96); MEAN PLT VOLUME 7.4 fl (7.5-11.1); MONO % 15.9 % (3.8-10.2); NEUT % 46.1 % (42.8-82.8); PLATELET COUNT 253 K/MM3 (134-434); RBC 3.39 M/mm3 (3.60-5.2); RDW 13.5 % (11.6-15.6); WHITE BLOOD COUNT 4.9 K/mm3 (4.0-10.0)
[2018-06-06 08:02] LABS: ANION GAP 9 MMOL/L (8-16); BLOOD UREA NITROGEN 15 mg/dL (7-18); CALCIUM 8.3 mg/dL (8.5-10.1); CHLORIDE 108 mmol/L (98-107); CO2 23 mmol/L (21-32); CREATININE 0.7 mg/dL (0.55-1.3); GLUCOSE,RANDOM 100 mg/dL (74-106); MAGNESIUM 2.3 mg/dL (1.8-2.4); PHOSPHOROUS 3.4 mg/dL (2.5-4.9); POTASSIUM 4.1 mmol/L (3.5-5.1); SODIUM 140 mmol/L (136-145)
--- NOTE | 2018-06-06 10:24 | PN ---
Progress Note, Physician Chief Complaint: Pt lying in bed in no acute distress. unable to obtain 2/2 advanced dementia. PRESERVATIONIST at bedside - Current Medication List Current Medications: Active Medications Acetaminophen (Tylenol -) 650 mg PO Q4H PRN PRN Reason: PAIN Last Admin: 06/05/18 23:36 Dose: 650 mg Aspirin (Asa -) 81 mg PO DAILY [facility] Last Admin: 06/05/18 09:01 Dose: 81 mg Vancomycin HCl (Vancomycin (Pre-Docked)) 1,000 mg in 250 mls @ 200 mls/hr IVPB DAILY@1600 [facility]; Protocol Last Admin: 06/05/18 18:37 Dose: 200 mls/hr Piperacillin Sod/Tazobactam (Sod 3.375 gm/ Dextrose) 50 mls @ 100 mls/hr IVPB Q8H-IV [facility]; Protocol Last Admin: 06/06/18 02:34 Dose: 100 mls/hr Levetiracetam (Keppra -) 750 mg PO BID [facility] Last Admin: 06/05/18 23:35 Dose: 750 mg Lorazepam (Ativan Injection -) 0.5 mg IVPUSH TID PRN PRN Reason: ANXIETY Metoprolol Tartrate (Lopressor -) 25 mg PO BID [facility] Last Admin: 06/05/18 23:37 Dose: 25 mg Mupirocin (Bactroban 2% Ointment -) 1 applic TP DAILY [facility] Last Admin: 06/05/18 11:31 Dose: 1 applic Senna (Senna -) 3 tab PO HS [facility] Last Admin: 06/05/18 23:36 Dose: 3 tab Zonisamide (Zonisamide) 25 mg PO BID [facility] Last Admin: 06/05/18 23:35 Dose: 25 mg - Objective Vital Signs: Vital Signs Temperature 98.1 F 06/06/18 06:00 Pulse Rate 98 H 06/06/18 07:42 Respiratory Rate 20 06/06/18 07:42 Blood Pressure 146/92 06/06/18 07:42 O2 Sat by Pulse Oximetry (%) 97 06/05/18 21:00 Constitutional: Yes: Well Nourished, No Distress Cardiovascular: Yes: Regular Rate and Rhythm, Murmur Respiratory: Yes: Regular, CTA Bilaterally, Diminished. No: Accessory Muscle Use, SOB, Tachypnea, Wheezes Gastrointestinal: Yes: WNL, Normal Bowel Sounds, Soft, Abdomen, Obese. No: Distention, Tenderness Genitourinary: Yes: Incontinence Edema: Yes Edema: LLE: Trace, RLE: Trace Integumentary: Yes: Other (right big toe cellulitis/blister) Wound/Incision: Yes: Dressing Dry and Intact, Reddened Neurological: Yes: Aphasia, Confusion Labs: CBC, BMP 06/06/18 07:00 06/06/18 07:00 INR, PTT INR 0.99 (0.83-1.09) 05/31/18 06:15 Assessment/Plan (1) Cellulitis Assessment/Plan: improving wbc count wnl pt has been afebrile since yesterday continue fang miller ID/podiatry following Code(s): L03.90 - CELLULITIS, UNSPECIFIED Qualifiers: Site of cellulitis: extremity Site of cellulitis of extremity: toe Laterality: right Qualified Code(s): L03.031 - Cellulitis of right toe (3) Fever Assessment/Plan: possibly 2/2 cellulitis await repeat blood cultures chest/abdomen CT w/out acute findings speech eval Code(s): R50.9 - FEVER, UNSPECIFIED Qualifiers: Encounter type: initial encounter (4) Leukocytosis Assessment/Plan: resolved Code(s): D72.829 - ELEVATED WHITE BLOOD CELL COUNT, UNSPECIFIED (5) Seizure Assessment/Plan: evaluated by neuro pt on max dose keppra zonisamide, level pending outpt follow up Code(s): R56.9 - UNSPECIFIED CONVULSIONS (6) Hypertension Assessment/Plan: controlled continue metoprolol Code(s): I10 - ESSENTIAL (PRIMARY) HYPERTENSION Qualifiers: Hypertension type: essential hypertension Qualified Code(s): I10 - Essential (primary) hypertension (7) Dementia Assessment/Plan: pt non verbal, bed-bound dysphagia pureed diet Code(s): F03.90 - UNSPECIFIED DEMENTIA WITHOUT BEHAVIORAL DISTURBANCE Qualifiers: Dementia behavioral disturbance: without behavioral disturbance (8) Seizure disorder Assessment/Plan: acute on chronic as above Code(s): G40.909 - EPILEPSY, UNSP, NOT INTRACTABLE, WITHOUT STATUS EPILEPTICUS (9) Functional quadriplegia Assessment/Plan: 2/2 advanced dementia Code(s): R53.2 - FUNCTIONAL QUADRIPLEGIA Dispo: home w/ PRESERVATIONIST when ID cleared
[2018-06-06] MEDS ORDERED: PT OWN MED DRAWER 7, Y5N ONE (11:15)
[2018-06-06] MEDS: levETIRAcetam 250 MG TABLET (FP) PO SCH ×2 (11:20→22:19)
[2018-06-06] MEDS: ASPIRIN 81 MG CHEWABLE TABLETS PO SCH (11:20)
[2018-06-06] MEDS: METOPROLOL TARTRATE 25 MG TABLET (FP) PO SCH ×2 (11:20→22:19)
[2018-06-06] MEDS: ZONISAMIDE 100 MG/10 ML ORAL SUSPENSION PO SCH ×2 (11:22→22:19)
[2018-06-06] MEDS: MUPIROCIN 2% TOPICAL OINTMENT 22 GM TUBE TP SCH (11:22)
[2018-06-06 11:39] LABS: ANISOCYTOSIS 0; MACROCYTOSIS 0; PLATELET ESTIMATE NORMAL
--- NOTE | 2018-06-06 11:40 | PN ---
Progress Note, POLYMER SCIENTIST - Note Progress Note: Selected Entries 06/05/18 06/05/18 06/05/18 02:00 06:00 09:00 Breakfast Diet Tolerated Lunch Supper Temperature 98.5 F 99.9 F H 97.5 F L Pulse Rate 06/05/18 06/05/18 06/05/18 09:35 14:42 18:38 Breakfast 50% Diet Tolerated Fair Fair Well Lunch 50% Supper 100% Temperature 97.2 F L 97.8 F Pulse Rate 06/05/18 06/06/18 06/06/18 22:00 07:42 10:09 Breakfast 50% Diet Tolerated Fair Lunch Supper Temperature 98.0 F Pulse Rate 98 H Laboratory Tests 06/03/18 06/04/18 06/05/18 06:00 05:45 06:15 WBC 12.4 H 8.6 7.4 Per ID- Cellulitis R great toe ? aspiration S/P seizures S/P UTI Reviewed with private SPORTS EQUIPMENT RACKER. She has been giving pt Puree and thin water from pitcher. Educated her on diet order of puree/honey thick only for now. She agreed to comply. Continue Puree/honey thick liquid for now and aspiration precautions.
[2018-06-06] MEDS: VANCOMYCIN 1 GRAM (PRE-DOCKED) 1,000 MG/250 ML BAG IVPB SCH (16:00)
--- NOTE | 2018-06-06 16:59 | PN ---
Progress Note, Physician History of Present Illness: Lethargic, non verbal Temps down WBC WNL Breathing non-labored. No cough noted No diarrhea BC no growth - Current Medication List Current Medications: Active Medications Acetaminophen (Tylenol -) 650 mg PO Q4H PRN PRN Reason: PAIN Last Admin: 06/05/18 23:36 Dose: 650 mg Aspirin (Asa -) 81 mg PO DAILY [facility] Last Admin: 06/06/18 11:20 Dose: 81 mg Vancomycin HCl (Vancomycin (Pre-Docked)) 1,000 mg in 250 mls @ 200 mls/hr IVPB DAILY@1600 [facility]; Protocol Last Admin: 06/05/18 18:37 Dose: 200 mls/hr Piperacillin Sod/Tazobactam (Sod 3.375 gm/ Dextrose) 50 mls @ 100 mls/hr IVPB Q8H-IV [facility]; Protocol Last Admin: 06/06/18 11:20 Dose: 100 mls/hr Levetiracetam (Keppra -) 750 mg PO BID [facility] Last Admin: 06/06/18 11:20 Dose: 750 mg Lorazepam (Ativan Injection -) 0.5 mg IVPUSH TID PRN PRN Reason: ANXIETY Metoprolol Tartrate (Lopressor -) 25 mg PO BID [facility] Last Admin: 06/06/18 11:20 Dose: 25 mg Mupirocin (Bactroban 2% Ointment -) 1 applic TP DAILY [facility] Last Admin: 06/06/18 11:22 Dose: 1 applic Senna (Senna -) 3 tab PO HS [facility] Last Admin: 06/05/18 23:36 Dose: 3 tab Zonisamide (Zonisamide) 25 mg PO BID [facility] Last Admin: 06/06/18 11:22 Dose: 25 mg - Objective Vital Signs: Vital Signs Temperature 98.2 F 06/06/18 14:25 Pulse Rate 83 06/06/18 14:25 Respiratory Rate 20 06/06/18 14:25 Blood Pressure 115/46 L 06/06/18 14:25 O2 Sat by Pulse Oximetry (%) 97 06/06/18 09:00 Constitutional: Yes: No Distress Cardiovascular: Yes: Regular Rate and Rhythm, S1, S2 Respiratory: Yes: Diminished Gastrointestinal: Yes: Normal Bowel Sounds, Soft. No: Tenderness Extremities: Yes: Other (+ hemorrhagic ylla, erythema great toe) Labs: CBC, BMP 06/06/18 07:00 06/06/18 07:00 INR, PTT INR 0.99 (0.83-1.09) 05/31/18 06:15 Assessment/Plan Cellulitis R great toe S/P seizures S/P UTI Repeat BC prelim no growth Empiric coverage skin pathogens with vancomycin and zosyn Aspiration precautions
[2018-06-06] MEDS: SENNOSIDES 8.6MG TABLET (FP) PO SCH (22:19)
[2018-06-07] MEDS ORDERED: PIPERACILLIN/TAZOBACTAM 3.375 GM VIAL IVPB ONE ×3 (01:35→17:15)
[2018-06-07] MEDS ORDERED: DEXTROSE 5%-WATER - 50 ML IVPB ONE ×3 (01:35→17:16)
[2018-06-07] MEDS: PIPERACILLIN/TAZOB 3.375 GM 3.375 GM in DEXTROSE 5%-WATER - 50 ML IVPB SCH ×3 (01:49→17:18)
[2018-06-07 08:05] LABS: ANION GAP 9 MMOL/L (8-16); BLOOD UREA NITROGEN 14 mg/dL (7-18); CALCIUM 8.4 mg/dL (8.5-10.1); CHLORIDE 107 mmol/L (98-107); CO2 23 mmol/L (21-32); CREATININE 0.9 mg/dL (0.55-1.3); GLUCOSE,RANDOM 125 mg/dL (74-106); MAGNESIUM 2.2 mg/dL (1.8-2.4); PHOSPHOROUS 3.3 mg/dL (2.5-4.9); POTASSIUM 4.1 mmol/L (3.5-5.1); SODIUM 140 mmol/L (136-145)
[2018-06-07 08:22] LABS: BASO % 3.4 % (0-2.0); EOS % 15.2 % (0-4.5); HEMATOCRIT 28.3 % (32.4-45.2); HEMOGLOBIN 9.5 GM/dL (10.7-15.3); LYMPH % 24.9 % (8-40); MCH 29.1 pg (25.7-33.7); MCHC 33.5 g/dl (32.0-36.0); MEAN CELL VOLUME 86.9 fl (80-96); MEAN PLT VOLUME 7.6 fl (7.5-11.1); MONO % 13.1 % (3.8-10.2); NEUT % 43.4 % (42.8-82.8); PLATELET COUNT 267 K/MM3 (134-434); RBC 3.26 M/mm3 (3.60-5.2); RDW 13.6 % (11.6-15.6); WHITE BLOOD COUNT 4.9 K/mm3 (4.0-10.0)
[2018-06-07 10:18] LABS: HELMET CELLS 1+; MACROCYTOSIS 0; PLATELET ESTIMATE NORMAL; TARGET CELLS 1+
--- NOTE | 2018-06-07 10:40 | PN ---
Progress Note, Physician Chief Complaint: Pt lying in bed in no acute distress. unable to obtain 2/2 advanced dementia. 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 - Current Medication List Current Medications: Active Medications Acetaminophen (Tylenol -) 650 mg PO Q4H PRN PRN Reason: PAIN Last Admin: 06/05/18 23:36 Dose: 650 mg Aspirin (Asa -) 81 mg PO DAILY [facility] Last Admin: 06/06/18 11:20 Dose: 81 mg Vancomycin HCl (Vancomycin (Pre-Docked)) 1,000 mg in 250 mls @ 200 mls/hr IVPB DAILY@1600 [facility]; Protocol Last Admin: 06/06/18 16:00 Dose: 200 mls/hr Piperacillin Sod/Tazobactam (Sod 3.375 gm/ Dextrose) 50 mls @ 100 mls/hr IVPB Q8H-IV [facility]; Protocol Last Admin: 06/07/18 01:49 Dose: 100 mls/hr Levetiracetam (Keppra -) 750 mg PO BID [facility] Last Admin: 06/06/18 22:19 Dose: 750 mg Lorazepam (Ativan Injection -) 0.5 mg IVPUSH TID PRN PRN Reason: ANXIETY Metoprolol Tartrate (Lopressor -) 25 mg PO BID [facility] Last Admin: 06/06/18 22:19 Dose: 25 mg Mupirocin (Bactroban 2% Ointment -) 1 applic TP DAILY [facility] Last Admin: 06/06/18 11:22 Dose: 1 applic Senna (Senna -) 3 tab PO HS [facility] Last Admin: 06/06/18 22:19 Dose: 3 tab Zonisamide (Zonisamide) 25 mg PO BID [facility] Last Admin: 06/06/18 22:19 Dose: 25 mg - Objective Vital Signs: Vital Signs Temperature 98.7 F 06/07/18 05:00 Pulse Rate 91 H 06/07/18 05:00 Respiratory Rate 20 06/07/18 05:00 Blood Pressure 125/68 06/07/18 05:00 O2 Sat by Pulse Oximetry (%) 97 06/06/18 21:00 Constitutional: Yes: No Distress, Calm Cardiovascular: Yes: Regular Rate and Rhythm, Murmur Respiratory: Yes: Regular, Diminished. No: Accessory Muscle Use, SOB, Tachypnea , Wheezes Gastrointestinal: Yes: WNL, Normal Bowel Sounds, Soft. No: Distention, Tenderness Genitourinary: Yes: Incontinence Integumentary: Yes: Other (right big toe cellulitis, blood filled bulla) Wound/Incision: Yes: Dressing Dry and Intact Neurological: Yes: Alert, Confusion Psychiatric: Yes: Alert Labs: CBC, BMP 06/07/18 06:30 06/07/18 06:30 INR, PTT INR 0.99 (0.83-1.09) 05/31/18 06:15 Assessment/Plan (1) Cellulitis Assessment/Plan: improving wbc count wnl pt has been afebrile continue zosyn,vanco day 3 ID/podiatry following Code(s): L03.90 - CELLULITIS, UNSPECIFIED Qualifiers: Site of cellulitis: extremity Site of cellulitis of extremity: toe Laterality: right Qualified Code(s): L03.031 - Cellulitis of right toe (3) Fever Assessment/Plan: possibly 2/2 cellulitis repeat blood cultures neg chest/abdomen CT w/out acute findings Code(s): R50.9 - FEVER, UNSPECIFIED Qualifiers: Encounter type: initial encounter (4) Leukocytosis Assessment/Plan: resolved Code(s): D72.829 - ELEVATED WHITE BLOOD CELL COUNT, UNSPECIFIED (5) Seizure Assessment/Plan: evaluated by neuro pt on max dose keppra zonisamide, level pending outpt follow up Code(s): R56.9 - UNSPECIFIED CONVULSIONS (6) Hypertension Assessment/Plan: controlled continue metoprolol Code(s): I10 - ESSENTIAL (PRIMARY) HYPERTENSION Qualifiers: Hypertension type: essential hypertension Qualified Code(s): I10 - Essential (primary) hypertension (7) Dementia Assessment/Plan: pt non verbal, bed-bound dysphagia pureed diet Code(s): F03.90 - UNSPECIFIED DEMENTIA WITHOUT BEHAVIORAL DISTURBANCE Qualifiers: Dementia behavioral disturbance: without behavioral disturbance (8) Seizure disorder Assessment/Plan: acute on chronic as above Code(s): G40.909 - EPILEPSY, UNSP, NOT INTRACTABLE, WITHOUT STATUS EPILEPTICUS (9) Functional quadriplegia Assessment/Plan: 2/2 advanced dementia Code(s): R53.2 - FUNCTIONAL QUADRIPLEGIA Dispo: home w/ GLASS CALIBRATOR when ID cleared
[2018-06-07] MEDS: METOPROLOL TARTRATE 25 MG TABLET (FP) PO SCH ×2 (11:10→23:05)
[2018-06-07] MEDS: levETIRAcetam 250 MG TABLET (FP) PO SCH ×2 (11:10→23:05)
[2018-06-07] MEDS: ASPIRIN 81 MG CHEWABLE TABLETS PO SCH (11:10)
[2018-06-07] MEDS: MUPIROCIN 2% TOPICAL OINTMENT 22 GM TUBE TP SCH (11:11)
[2018-06-07] MEDS: ZONISAMIDE 100 MG/10 ML ORAL SUSPENSION PO SCH ×2 (11:11→23:06)
--- NOTE | 2018-06-07 12:46 | PN ---
Progress Note, Physician History of Present Illness: Lethargic, non verbal Temps down afebrile WBC WNL Breathing non-labored. No cough noted Developed R UE edema ? IV infiltration BC no growth - Current Medication List Current Medications: Active Medications Acetaminophen (Tylenol -) 650 mg PO Q4H PRN PRN Reason: PAIN Last Admin: 06/05/18 23:36 Dose: 650 mg Aspirin (Asa -) 81 mg PO DAILY [facility] Last Admin: 06/07/18 11:10 Dose: 81 mg Vancomycin HCl (Vancomycin (Pre-Docked)) 1,000 mg in 250 mls @ 200 mls/hr IVPB DAILY@1600 [facility]; Protocol Last Admin: 06/06/18 16:00 Dose: 200 mls/hr Piperacillin Sod/Tazobactam (Sod 3.375 gm/ Dextrose) 50 mls @ 100 mls/hr IVPB Q8H-IV [facility]; Protocol Last Admin: 06/07/18 11:10 Dose: 100 mls/hr Levetiracetam (Keppra -) 750 mg PO BID [facility] Last Admin: 06/07/18 11:10 Dose: 750 mg Lorazepam (Ativan Injection -) 0.5 mg IVPUSH TID PRN PRN Reason: ANXIETY Metoprolol Tartrate (Lopressor -) 25 mg PO BID [facility] Last Admin: 06/07/18 11:10 Dose: 25 mg Mupirocin (Bactroban 2% Ointment -) 1 applic TP DAILY [facility] Last Admin: 06/07/18 11:11 Dose: 1 applic Senna (Senna -) 3 tab PO HS [facility] Last Admin: 06/06/18 22:19 Dose: 3 tab Zonisamide (Zonisamide) 25 mg PO BID [facility] Last Admin: 06/07/18 11:11 Dose: 25 mg - Objective Vital Signs: Vital Signs Temperature 98.7 F 06/07/18 05:00 Pulse Rate 91 H 06/07/18 05:00 Respiratory Rate 20 06/07/18 05:00 Blood Pressure 125/68 06/07/18 05:00 O2 Sat by Pulse Oximetry (%) 97 06/06/18 21:00 Constitutional: Yes: No Distress Eyes: Yes: Conjunctiva Clear Cardiovascular: Yes: Regular Rate and Rhythm, S1, S2 Respiratory: Yes: CTA Bilaterally Gastrointestinal: Yes: Normal Bowel Sounds, Soft. No: Tenderness Extremities: Yes: Other (decreased erythema, great toe + hemorrhagic plantar bulla R UE edema) Labs: CBC, BMP 06/07/18 06:30 06/07/18 06:30 INR, PTT INR 0.99 (0.83-1.09) 05/31/18 06:15 Assessment/Plan Cellulitis R great toe S/P seizures S/P UTI Repeat BC no growth Empiric coverage skin pathogens with vancomycin and zosyn Aspiration precautions
[2018-06-07] MEDS: VANCOMYCIN 1 GRAM (PRE-DOCKED) 1,000 MG/250 ML BAG IVPB SCH (16:00)
[2018-06-07] MEDS ORDERED: PT OWN MED DRAWER 7, Y5N ONE (22:25)
[2018-06-07] MEDS: SENNOSIDES 8.6MG TABLET (FP) PO SCH (23:05)
[2018-06-08] MEDS ORDERED: DEXTROSE 5%-WATER - 50 ML IVPB ONE ×3 (00:42→17:03)
[2018-06-08] MEDS ORDERED: PIPERACILLIN/TAZOBACTAM 3.375 GM VIAL IVPB ONE ×3 (00:42→17:03)
[2018-06-08] MEDS: PIPERACILLIN/TAZOB 3.375 GM 3.375 GM in DEXTROSE 5%-WATER - 50 ML IVPB SCH ×3 (02:45→17:10)
[2018-06-08 07:58] LABS: BASO % 3.4 % (0-2.0); EOS % 16.1 % (0-4.5); HEMATOCRIT 28.1 % (32.4-45.2); HEMOGLOBIN 9.6 GM/dL (10.7-15.3); LYMPH % 25.4 % (8-40); MCH 29.7 pg (25.7-33.7); MCHC 34.3 g/dl (32.0-36.0); MEAN CELL VOLUME 86.6 fl (80-96); MEAN PLT VOLUME 7.2 fl (7.5-11.1); MONO % 15.4 % (3.8-10.2); NEUT % 39.7 % (42.8-82.8); PLATELET COUNT 292 K/MM3 (134-434); RBC 3.24 M/mm3 (3.60-5.2); RDW 13.9 % (11.6-15.6); WHITE BLOOD COUNT 5.4 K/mm3 (4.0-10.0)
[2018-06-08 08:08] LABS: ANION GAP 7 MMOL/L (8-16); BLOOD UREA NITROGEN 11 mg/dL (7-18); CHLORIDE 108 mmol/L (98-107); CO2 23 mmol/L (21-32); CREATININE 0.9 mg/dL (0.55-1.3); GLUCOSE,RANDOM 118 mg/dL (74-106); POTASSIUM 3.9 mmol/L (3.5-5.1); SODIUM 137 mmol/L (136-145)
[2018-06-08] MEDS: METOPROLOL TARTRATE 25 MG TABLET (FP) PO SCH ×2 (10:15→21:41)
[2018-06-08] MEDS: levETIRAcetam 250 MG TABLET (FP) PO SCH ×2 (10:15→21:40)
[2018-06-08] MEDS: ASPIRIN 81 MG CHEWABLE TABLETS PO SCH (10:16)
[2018-06-08] MEDS: ZONISAMIDE 100 MG/10 ML ORAL SUSPENSION PO SCH ×2 (10:19→21:43)
[2018-06-08] MEDS: MUPIROCIN 2% TOPICAL OINTMENT 22 GM TUBE TP SCH (11:21)
--- NOTE | 2018-06-08 11:29 | PN ---
Progress Note, Physician Chief Complaint: Pt lying in bed in no acute distress. unable to obtain 2/2 advanced dementia. 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 - Current Medication List Current Medications: Active Medications Acetaminophen (Tylenol -) 650 mg PO Q4H PRN PRN Reason: PAIN Last Admin: 06/05/18 23:36 Dose: 650 mg Aspirin (Asa -) 81 mg PO DAILY [facility] Last Admin: 06/08/18 10:16 Dose: 81 mg Vancomycin HCl (Vancomycin (Pre-Docked)) 1,000 mg in 250 mls @ 200 mls/hr IVPB DAILY@1600 [facility]; Protocol Last Admin: 06/07/18 16:00 Dose: 200 mls/hr Piperacillin Sod/Tazobactam (Sod 3.375 gm/ Dextrose) 50 mls @ 100 mls/hr IVPB Q8H-IV [facility]; Protocol Last Admin: 06/08/18 10:15 Dose: 100 mls/hr Levetiracetam (Keppra -) 750 mg PO BID [facility] Last Admin: 06/08/18 10:15 Dose: 750 mg Lorazepam (Ativan Injection -) 0.5 mg IVPUSH TID PRN PRN Reason: ANXIETY Metoprolol Tartrate (Lopressor -) 25 mg PO BID [facility] Last Admin: 06/08/18 10:15 Dose: 25 mg Mupirocin (Bactroban 2% Ointment -) 1 applic TP DAILY [facility] Last Admin: 06/08/18 11:21 Dose: 1 applic Senna (Senna -) 3 tab PO HS [facility] Last Admin: 06/07/18 23:05 Dose: 3 tab Zonisamide (Zonisamide) 25 mg PO BID [facility] Last Admin: 06/08/18 10:19 Dose: 25 mg - Objective Vital Signs: Vital Signs Temperature 98.1 F 06/08/18 09:55 Pulse Rate 97 H 06/08/18 09:55 Respiratory Rate 20 06/08/18 09:55 Blood Pressure 126/69 06/08/18 09:55 O2 Sat by Pulse Oximetry (%) 97 06/07/18 21:00 Constitutional: Yes: Well Nourished, No Distress Cardiovascular: Yes: Regular Rate and Rhythm, Murmur Respiratory: Yes: Regular, Diminished. No: Accessory Muscle Use, Rhonchi, SOB, Tachypnea, Wheezes Gastrointestinal: Yes: WNL, Normal Bowel Sounds, Soft, Abdomen, Obese. No: Distention, Tenderness Genitourinary: Yes: Incontinence Edema: Yes Edema: LLE: Trace, RLE: Trace Integumentary: Yes: Erythema (right big toe, w/ red filled bulla) Wound/Incision: Yes: Reddened, Bleeding Neurological: Yes: Confusion, Lethargy Labs: CBC, BMP 06/08/18 06:40 06/08/18 06:40 INR, PTT INR 0.99 (0.83-1.09) 05/31/18 06:15 Assessment/Plan (1) Cellulitis Assessment/Plan: improving wbc count wnl pt has been afebrile continue zosynvanco day 4 ID/podiatry following Code(s): L03.90 - CELLULITIS, UNSPECIFIED Qualifiers: Site of cellulitis: extremity Site of cellulitis of extremity: toe Laterality: right Qualified Code(s): L03.031 - Cellulitis of right toe (3) Fever Assessment/Plan: possibly 2/2 cellulitis repeat blood cultures neg chest/abdomen CT w/out acute findings Code(s): R50.9 - FEVER, UNSPECIFIED Qualifiers: Encounter type: initial encounter (4) Leukocytosis Assessment/Plan: resolved Code(s): D72.829 - ELEVATED WHITE BLOOD CELL COUNT, UNSPECIFIED (5) Seizure Assessment/Plan: evaluated by neuro pt on max dose keppra zonisamide outpt follow up Code(s): R56.9 - UNSPECIFIED CONVULSIONS (6) Hypertension Assessment/Plan: controlled continue metoprolol Code(s): I10 - ESSENTIAL (PRIMARY) HYPERTENSION Qualifiers: Hypertension type: essential hypertension Qualified Code(s): I10 - Essential (primary) hypertension (7) Dementia Assessment/Plan: pt non verbal, bed-bound dysphagia pureed diet Code(s): F03.90 - UNSPECIFIED DEMENTIA WITHOUT BEHAVIORAL DISTURBANCE Qualifiers: Dementia behavioral disturbance: without behavioral disturbance (8) Seizure disorder Assessment/Plan: acute on chronic as above Code(s): G40.909 - EPILEPSY, UNSP, NOT INTRACTABLE, WITHOUT STATUS EPILEPTICUS (9) Functional quadriplegia Assessment/Plan: 2/2 advanced dementia Code(s): R53.2 - FUNCTIONAL QUADRIPLEGIA (10) Pain and swelling of right upper extremity Assessment/Plan: improved duplex negative Code(s): M79.601 - PAIN IN RIGHT ARM; M79.89 - OTHER SPECIFIED SOFT TISSUE DISORDERS Dispo: home w/ MECHANIC DRIVER when ID cleared. Plan of care discussed with pt's daughter
--- NOTE | 2018-06-08 11:36 | PN ---
Progress Note, [employer] - Note Progress Note: Selected Entries 06/07/18 06/07/18 06/07/18 01:52 05:00 09:00 Breakfast Lunch Supper Temperature 97.4 F L 98.7 F 97.9 F 06/07/18 06/07/18 06/07/18 10:48 15:00 18:00 Breakfast 50% Lunch 50% Supper 50% Temperature 98.6 F 06/08/18 06/08/18 06/08/18 02:00 06:00 09:55 Breakfast Lunch Supper Temperature 97.6 F 97.8 F 98.1 F Laboratory Tests 06/08/18 06:40 WBC 5.4 Doing well with diet, fed by private [facility].
--- NOTE | 2018-06-08 12:24 | PN ---
Progress Note (short form) - Note Progress Note: Podiatry F/U: Seen/evaluated at bedside, NAD. Pain controlled, denies F/V/N/C/SOB/CP. S/p bedside incision and drainage. Reevaluated due to newly formed blister/abscess on the right great toe. Offloading measures have been implemented GISELL: R foot: healed dermal abscess dorsal aspect of hallux. There is a newly-formed hemorrhagic blister on the plantar surface of the hallux with fluctuance, no karyna purulence, no soft tissue crepitus, no deep probing, no streaking cellulitis, no signs of acute infection. Imp: 87 year old F with R great toe abscess, superficial 1. Phone consent obtained from daughter Kaya. Bedside incision and drainage of superficial abscess of great toe right foot using sterile scissors and forceps. All sanguinous drainage expressed, no karyna pus. Patient tolerated the procedure well without complications. 2. Continue local wound care Rx, dry gauze for now. 3. Offloading measures. 4. Can f/u in wound healing center upon discharge. No further intervention, thank you for the reconsultation. Nora Henderson DPM
[2018-06-08] MEDS: VANCOMYCIN 1 GRAM (PRE-DOCKED) 1,000 MG/250 ML BAG IVPB SCH (17:10)
[2018-06-08] MEDS: SENNOSIDES 8.6MG TABLET (FP) PO SCH (21:41)
[2018-06-09] MEDS ORDERED: PIPERACILLIN/TAZOBACTAM 3.375 GM VIAL IVPB ONE (01:12)
[2018-06-09] MEDS ORDERED: DEXTROSE 5%-WATER - 50 ML IVPB ONE (01:13)
[2018-06-09] MEDS: PIPERACILLIN/TAZOB 3.375 GM 3.375 GM in DEXTROSE 5%-WATER - 50 ML IVPB SCH (01:37)
[2018-06-09 07:47] LABS: BASO % 2.8 % (0-2.0); EOS % 19.7 % (0-4.5); HEMATOCRIT 29.2 % (32.4-45.2); HEMOGLOBIN 9.8 GM/dL (10.7-15.3); LYMPH % 26.5 % (8-40); MCH 29.1 pg (25.7-33.7); MCHC 33.4 g/dl (32.0-36.0); MEAN CELL VOLUME 87.1 fl (80-96); MEAN PLT VOLUME 7.1 fl (7.5-11.1); MONO % 11.8 % (3.8-10.2); NEUT % 39.2 % (42.8-82.8); PLATELET COUNT 292 K/MM3 (134-434); RBC 3.36 M/mm3 (3.60-5.2); RDW 14.2 % (11.6-15.6); WHITE BLOOD COUNT 5.5 K/mm3 (4.0-10.0)
[2018-06-09 08:11] LABS: ANION GAP 9 MMOL/L (8-16); BLOOD UREA NITROGEN 10 mg/dL (7-18); CHLORIDE 107 mmol/L (98-107); CO2 21 mmol/L (21-32); CREATININE 0.9 mg/dL (0.55-1.3); GLUCOSE,RANDOM 127 mg/dL (74-106); POTASSIUM 3.7 mmol/L (3.5-5.1); SODIUM 137 mmol/L (136-145)
--- NOTE | 2018-06-09 10:16 | PN ---
Progress Note, Physician History of Present Illness: S/P debridement great toe Lethargic, non verbal Temps remain down WBC WNL Breathing non-labored. No cough noted BC no growth - Current Medication List Current Medications: Active Medications Acetaminophen (Tylenol -) 650 mg PO Q4H PRN PRN Reason: PAIN Last Admin: 06/05/18 23:36 Dose: 650 mg Aspirin (Asa -) 81 mg PO DAILY [facility] Last Admin: 06/08/18 10:16 Dose: 81 mg Vancomycin HCl (Vancomycin (Pre-Docked)) 1,000 mg in 250 mls @ 200 mls/hr IVPB DAILY@1600 [facility]; Protocol Last Admin: 06/08/18 17:10 Dose: 200 mls/hr Piperacillin Sod/Tazobactam (Sod 3.375 gm/ Dextrose) 50 mls @ 100 mls/hr IVPB Q8H-IV [facility]; Protocol Last Admin: 06/09/18 01:37 Dose: 100 mls/hr Levetiracetam (Keppra -) 750 mg PO BID [facility] Last Admin: 06/08/18 21:40 Dose: 750 mg Lorazepam (Ativan Injection -) 0.5 mg IVPUSH TID PRN PRN Reason: ANXIETY Metoprolol Tartrate (Lopressor -) 25 mg PO BID [facility] Last Admin: 06/08/18 21:41 Dose: 25 mg Mupirocin (Bactroban 2% Ointment -) 1 applic TP DAILY [facility] Last Admin: 06/08/18 11:21 Dose: 1 applic Senna (Senna -) 3 tab PO HS [facility] Last Admin: 06/08/18 21:41 Dose: 3 tab Zonisamide (Zonisamide) 25 mg PO BID [facility] Last Admin: 06/08/18 21:43 Dose: 25 mg - Objective Vital Signs: Vital Signs Temperature 98.6 F 06/09/18 06:00 Pulse Rate 95 H 06/09/18 06:00 Respiratory Rate 18 06/09/18 06:00 Blood Pressure 121/83 06/09/18 06:00 O2 Sat by Pulse Oximetry (%) 94 L 06/08/18 21:00 Constitutional: Yes: No Distress Eyes: Yes: Conjunctiva Clear Cardiovascular: Yes: Regular Rate and Rhythm, S1, S2 Respiratory: Yes: Diminished Gastrointestinal: Yes: Normal Bowel Sounds, Soft. No: Tenderness Extremities: Yes: Other (decreased erythema great toe,) Labs: CBC, BMP 06/09/18 06:00 06/09/18 06:00 INR, PTT INR 0.99 (0.83-1.09) 05/31/18 06:15 Assessment/Plan Cellulitis R great toe improved S/P seizures S/P UTI Repeat BC no growth May substitute po Augmentin 875 mg bid x 7d
[2018-06-09] MEDS ORDERED: POTASSIUM CHLORIDE ORAL LIQUID 20 MEQ/15 ML PO ONE (10:39)
--- NOTE | 2018-06-09 10:52 | DS ---
Physical Examination Vital Signs: Vital Signs Temperature 98.6 F 06/09/18 06:00 Pulse Rate 95 H 06/09/18 06:00 Respiratory Rate 18 06/09/18 06:00 Blood Pressure 121/83 06/09/18 06:00 O2 Sat by Pulse Oximetry (%) 94 L 06/08/18 21:00 Constitutional: Yes: Well Nourished, No Distress Cardiovascular: Yes: Regular Rate and Rhythm, Murmur Respiratory: Yes: Regular, Diminished. No: Accessory Muscle Use, Tachypnea, Wheezes Gastrointestinal: Yes: WNL, Normal Bowel Sounds, Soft. No: Distention, Tenderness Renal/: Yes: Incontinence Integumentary: Yes: Erythema (R big toe cellulitis, s/p debridement of blisters) Wound/Incision: Yes: Clean/Dry, Dressing Dry and Intact Neurological: Yes: Confusion, Lethargy Labs: CBC, BMP 06/09/18 06:00 06/09/18 06:00 Discharge Summary Reason For Visit: SEIZURE DEMENTIA HTN FUNCTIONAL QUADRIPLEGIA Current Active Problems Cellulitis (Acute) Dementia (Acute) Fever (Acute) Hypertension (Acute) Leukocytosis (Acute) Pain and swelling of right upper extremity (Acute) Seizure (Acute) Hospital Course: 87 year old female with pmh significant of advanced dementia admitted for seizure and fevers. Pt evaluated by neurology, on max keppra, started on zonisamide, continue outpt follow up regarding bread supervisor medication plan. Fever - Right toe cellulitis noted, s/p debridement, continue bactroban and dry gauze dressing. Pt may follow up at wound center. Pt received 5 days of vanco/zosyn, transitioned to po augmentin today. wbc count wnl. ID consult appreciated. All blood cultures negative thus far. Pt is medically stable for discharge home. Cleared by neurology, ID, and podiatry. HCP informed of discharge plan. 35 minutes spent in discharge planning Condition: Improved - Instructions Diet, Activity, Other Instructions: check keppra, zonisgran level in 1 week, please consult with or regarding seizure medication regimen augmentin 875mg bid x 7 days Rx bactroban + dry gauze daily to R great toe Recommend offloading measures with suspension boots Patient can f/u upon discharge with Dr.Bortneiker in wound healing center. RECOMMENDATIONS: Continue puree diet and small single sips of thin liquid, from a cup or spoon, ideally out of bed in a chair if possible. Head of bed should always be elevated if fed in bed. Head positioning should be at in neutral, avoid extending patient's head while swallowing. If coughing is noted with single careful sips of thin liquid, patient may need to be downgraded to nectar thick liquid. Referrals: Miki Henderson MD [Staff Physician] - Bo Castro MD [Staff Physician] - Braden Harrington MD [Primary Care Provider] - Disposition: VNS/HOME HEALTH CARE - Home Medications Comprehensive Discharge Medication List: Ambulatory Orders Metoprolol Succinate [Toprol XL -] 25 mg PO BID 01/15/14 Alprazolam 0.5 mg PO TID 12/30/15 Aspirin 81 mg PO DAILY 05/23/18 Sennosides [Senna] 3 tab PO HS 05/23/18 Amox-Tr/K Cl [Augmentin 875-125mg Tablet -] 1 tab PO BID@0800,1730 7 Days #13 tablet 06/09/18 Mupirocin Ointment [Bactroban 2% Ointment -] 1 applic TP DAILY #2 tube 06/09/18 Zonisamide 25 mg PO BID #1500 ml 06/09/18 levETIRAcetam [Keppra -] 750 mg PO BID #60 tablet 06/09/18
[2018-06-09] MEDS ORDERED: PT OWN MED DRAWER 7, Y5N ONE (11:01)
[2018-06-09] MEDS: levETIRAcetam 250 MG TABLET (FP) PO SCH ×2 (11:07→21:50)
[2018-06-09] MEDS: ASPIRIN 81 MG CHEWABLE TABLETS PO SCH (11:08)
[2018-06-09] MEDS: METOPROLOL TARTRATE 25 MG TABLET (FP) PO SCH ×2 (11:08→21:50)
[2018-06-09] MEDS: ZONISAMIDE 100 MG/10 ML ORAL SUSPENSION PO SCH ×2 (11:09→21:51)
--- NOTE | 2018-06-09 12:03 | PN ---
Progress Note, Physician Chief Complaint: Pt lying in bed in no acute distress. unable to obtain 2/2 advanced dementia. 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 - Current Medication List Current Medications: Active Medications Acetaminophen (Tylenol -) 650 mg PO Q4H PRN PRN Reason: PAIN Last Admin: 06/05/18 23:36 Dose: 650 mg Amoxicillin/Clavulanate Potassium (Augmentin - 875mg Tablet) 1 tab PO BID@0800, 1730 [facility] Aspirin (Asa -) 81 mg PO DAILY [facility] Last Admin: 06/09/18 11:08 Dose: 81 mg Levetiracetam (Keppra -) 750 mg PO BID [facility] Last Admin: 06/09/18 11:07 Dose: 750 mg Lorazepam (Ativan Injection -) 0.5 mg IVPUSH TID PRN PRN Reason: ANXIETY Metoprolol Tartrate (Lopressor -) 25 mg PO BID [facility] Last Admin: 06/09/18 11:08 Dose: 25 mg Mupirocin (Bactroban 2% Ointment -) 1 applic TP DAILY [facility] Last Admin: 06/08/18 11:21 Dose: 1 applic Senna (Senna -) 3 tab PO HS [facility] Last Admin: 06/08/18 21:41 Dose: 3 tab Zonisamide (Zonisamide) 25 mg PO BID [facility] Last Admin: 06/09/18 11:09 Dose: 25 mg - Objective Vital Signs: Vital Signs Temperature 100.8 F H 06/09/18 11:54 Pulse Rate 100 H 06/09/18 11:05 Respiratory Rate 20 06/09/18 11:05 Blood Pressure 153/62 06/09/18 11:05 O2 Sat by Pulse Oximetry (%) 94 L 06/08/18 21:00 Constitutional: Yes: Well Nourished, No Distress Cardiovascular: Yes: Regular Rate and Rhythm, Murmur Respiratory: Yes: WNL, Regular, CTA Bilaterally. No: Accessory Muscle Use, SOB , Tachypnea, Wheezes Gastrointestinal: Yes: WNL, Normal Bowel Sounds, Soft, Abdomen, Obese. No: Distention, Tenderness Genitourinary: Yes: Incontinence Edema: No Integumentary: Yes: Pressure Ulcer (right toe cellulitis) Wound/Incision: Yes: Dressing Dry and Intact Neurological: Yes: Alert, Confusion Labs: CBC, BMP 06/09/18 06:00 06/09/18 06:00 INR, PTT INR 0.99 (0.83-1.09) 05/31/18 06:15 Assessment/Plan (1) Cellulitis Assessment/Plan: improved wbc count wnl transitioned to po augmentin s/p debridement by podiatry ID following Code(s): L03.90 - CELLULITIS, UNSPECIFIED Qualifiers: Site of cellulitis: extremity Site of cellulitis of extremity: toe Laterality: right Qualified Code(s): L03.031 - Cellulitis of right toe (3) Fever Assessment/Plan: pt spiked a fever today suspect 2/2 debridement repeat blood cultures ID informed- continue po antibx Code(s): R50.9 - FEVER, UNSPECIFIED Qualifiers: Encounter type: initial encounter (4) Leukocytosis Assessment/Plan: resolved Code(s): D72.829 - ELEVATED WHITE BLOOD CELL COUNT, UNSPECIFIED (5) Seizure Assessment/Plan: evaluated by neuro rafi arzate outpt follow up Code(s): R56.9 - UNSPECIFIED CONVULSIONS (6) Hypertension Assessment/Plan: controlled continue metoprolol Code(s): I10 - ESSENTIAL (PRIMARY) HYPERTENSION Qualifiers: Hypertension type: essential hypertension Qualified Code(s): I10 - Essential (primary) hypertension (7) Dementia Assessment/Plan: pt non verbal, bed-bound dysphagia pureed diet Code(s): F03.90 - UNSPECIFIED DEMENTIA WITHOUT BEHAVIORAL DISTURBANCE Qualifiers: Dementia behavioral disturbance: without behavioral disturbance (8) Seizure disorder Assessment/Plan: acute on chronic as above Code(s): G40.909 - EPILEPSY, UNSP, NOT INTRACTABLE, WITHOUT STATUS EPILEPTICUS (9) Functional quadriplegia Assessment/Plan: 2/2 advanced dementia Code(s): R53.2 - FUNCTIONAL QUADRIPLEGIA (10) Pain and swelling of right upper extremity Assessment/Plan: improved duplex negative Code(s): M79.601 - PAIN IN RIGHT ARM; M79.89 - OTHER SPECIFIED SOFT TISSUE DISORDERS Dispo: home w/ USER EXPERIENCE RESEARCHER when ID cleared. Pt needs to be afebrile for 24 hours
--- NOTE | 2018-06-09 12:38 | PN ---
Progress Note, BLANKET WE[employer]ER - Note Progress Note: Selected Entries 06/07/18 06/07/18 06/07/18 01:52 05:00 09:00 Breakfast Lunch Supper Temperature 97.4 F L 98.7 F 97.9 F 06/07/18 06/07/18 06/07/18 10:48 15:00 18:00 Breakfast 50% Lunch 50% Supper 50% Temperature 98.6 F 06/08/18 06/08/18 06/08/18 02:00 06:00 09:55 Breakfast Lunch Supper Temperature 97.6 F 97.8 F 98.1 F Laboratory Tests 06/08/18 06:40 WBC 5.4 Selected Entries 06/09/18 06/09/18 06/09/18 06:00 11:05 11:54 Breakfast Temperature 98.6 F 98.3 F 100.8 F H 06/09/18 12:02 Breakfast 50% Temperature Laboratory Tests 06/09/18 06:00 WBC 5.5 Doing well with diet, fed by private BRIDGE PAINTER HELPER. Reviewed swallowing compensatory strategies and diet order with private BRIDGE PAINTER HELPER. RD for continued education regarding puree/honey thick liquid.
[2018-06-09 14:28] LABS: URINE APPEARANCE CLEAR; URINE BILIRUBIN NEGATIVE (<2.0 mg/dL); URINE COLOR STRAW; URINE GLUCOSE (UA) NEGATIVE (NEGATIVE); URINE KETONE NEGATIVE (NEGATIVE); URINE LEUK ESTERASE 3+ (NEGATIVE); URINE NITRITE NEGATIVE (NEGATIVE); URINE PROTEIN NEGATIVE (NEGATIVE); URINE UROBILINOGEN NEGATIVE mg/dL (0.2-1.0)
[2018-06-09 14:32] LABS: EPI CELLS RARE /HPF (FEW); YEAST RARE
[2018-06-09] MEDS: MUPIROCIN 2% TOPICAL OINTMENT 22 GM TUBE TP SCH (17:06)
[2018-06-09] MEDS: AMOX TR/POT CLAV 875MG/125MG TABLETS (FP) PO SCH (17:33)
[2018-06-09] MEDS: ACETAMINOPHEN 325 MG TABLET (FP) PO PRN (20:17)
[2018-06-09] MEDS: SENNOSIDES 8.6MG TABLET (FP) PO SCH (21:01)
[2018-06-10] MEDS: PIPERACILLIN/TAZOB 3.375 GM 3.375 GM in DEXTROSE 5%-WATER - 50 ML IVPB SCH (07:21)
[2018-06-10] MEDS: AMOX TR/POT CLAV 875MG/125MG TABLETS (FP) PO SCH ×2 (08:22→17:27)
[2018-06-10] MEDS: ASPIRIN 81 MG CHEWABLE TABLETS PO SCH (09:40)
[2018-06-10] MEDS: levETIRAcetam 250 MG TABLET (FP) PO SCH ×2 (09:41→21:35)
[2018-06-10] MEDS: ZONISAMIDE 100 MG/10 ML ORAL SUSPENSION PO SCH ×2 (09:42→22:49)
[2018-06-10] MEDS: METOPROLOL TARTRATE 25 MG TABLET (FP) PO SCH ×2 (10:35→21:35)
[2018-06-10] MEDS: MUPIROCIN 2% TOPICAL OINTMENT 22 GM TUBE TP SCH (10:37)
--- NOTE | 2018-06-10 10:48 | PN ---
Physical Exam: SUBJECTIVE: Patient seen and examined, non verbal, aide at bedside, per nursing , no concerns overnight. OBJECTIVE: Vital Signs Period Temp Pulse Resp BP Sys/Tate Pulse Ox Last 24 Hr 0.3 F-100.8 F 78-116 18-20 105-153/54-81 98 Intake & Output 06/07/18 06/08/18 06/09/18 06/10/18 23:59 23:59 23:59 23:59 Intake Total 1560 350 380 Output Total 200 Balance 1560 350 180 GENERAL: The patient is sleeping, no acute distress, non verbal. HEAD: Normal with no signs of trauma. EYES: PERRL, extraocular movements intact, sclera anicteric, conjunctiva clear. No ptosis. ENT: Ears normal, nares patent, oropharynx clear without exudates, moist mucous membranes. NECK: Trachea midline, full range of motion, supple. LUNGS: decreased effort, lack of co-operation, no rales or wheezing appreciated HEART: Regular rate and rhythm, S1, S2 ABDOMEN: Soft, nontender,obese, normoactive bowel sounds, no guarding, no rebound EXTREMITIES: right great toe, dried blood, minimal erythema around nail bed and minimal swelling, non tender, no active discharge or foul smell noted SKIN: Warm, dry, normal turgor, no rashes or lesions noted Laboratory Results - last 24 hr 06/09/18 13:35 Urine Color Straw Urine Appearance Clear Urine pH 7.0 Ur Specific [place] 1.006 L Urine Protein Negative Urine Glucose (UA) Negative Urine Ketones Negative Urine Blood Negative Urine Nitrite Negative Urine Bilirubin Negative Urine Urobilinogen Negative Ur Leukocyte Esterase 3+ H Urine WBC (Auto) 14 Urine RBC (Auto) 1 Ur Epithelial Cells Rare Urine Yeast Rare Active Medications Generic Name Dose Route Start Last Admin Trade Name Freq PRN Reason Stop Dose Admin Acetaminophen 650 mg 05/31/18 09:11 06/09/18 20:17 Tylenol - PO 650 mg Q4H PRN Administration PAIN Amoxicillin/Clavulanate Potassium 1 tab 06/09/18 17:30 06/10/18 08:22 Augmentin - 875mg Tablet PO 1 tab BID@0800,1730 GISSEL Administration Aspirin 81 mg 05/31/18 10:00 06/10/18 09:40 Asa - PO 81 mg DAILY GISSEL Administration Levetiracetam 750 mg 05/31/18 22:00 06/10/18 09:41 Keppra - PO 750 mg BID GISSEL Administration Lorazepam 0.5 mg 06/05/18 11:10 Ativan Injection - IVPUSH TID PRN ANXIETY Metoprolol Tartrate 25 mg 06/04/18 12:45 06/10/18 10:35 Lopressor - PO 25 mg BID GISSEL Administration Mupirocin 1 applic 06/05/18 10:00 06/10/18 10:37 Bactroban 2% Ointment - TP 1 applic DAILY GISSEL Administration Senna 3 tab 05/31/18 22:00 06/09/18 21:01 Senna - PO Not Given HS GISSEL Zonisamide 25 mg 05/31/18 22:00 06/10/18 09:42 Zonisamide PO 25 mg BID GISSEL Administration Microbiology 06/09/18 13:35 Urine - Urine - Catheterized Urine Culture - Final NO GROWTH OBTAINED 06/05/18 17:15 Blood - Peripheral Venous Blood Culture - Preliminary NO GROWTH OBTAINED AFTER 96 HOURS, INCUBATION TO CONTINUE FOR 1 DAYS. 06/05/18 18:15 Blood - Peripheral Venous Blood Culture - Preliminary NO GROWTH OBTAINED AFTER 96 HOURS, INCUBATION TO CONTINUE FOR 1 DAYS. 06/02/18 12:50 Blood - Peripheral Venous Blood Culture - Final NO GROWTH AFTER 5 DAYS INCUBATION 06/02/18 12:50 Blood - Peripheral Venous Blood Culture - Final NO GROWTH AFTER 5 DAYS INCUBATION 05/31/18 10:05 Blood - Peripheral Venous Blood Culture - Final NO GROWTH AFTER 5 DAYS INCUBATION 05/31/18 10:20 Blood - Peripheral Venous Blood Culture - Final NO GROWTH AFTER 5 DAYS INCUBATION 05/30/18 19:10 Urine - Urine - Catheterized Urine Culture - Final NO GROWTH OBTAINED ASSESSMENT/PLAN: 89 yof with PMhx of Dementia (non verbal at baseline), seizure disorder, CAD, HTN admitted with fever, seizures found with right great toe cellulitis -Right great toe cellulitis s/p debridement -Seizure, ?in the setting of infection -CAD -HTN Plan: Podiatry/neurology input noted Zosinamide increased, continue keppra 750 mg BID, seizure precautions Wound care right great toe s/p 5 days of zosyn/vancomyin, on augmentin Low grade fevers, ?Micro aspiration. No gross focal concerns. u/a noted. Discussed with , follow up recs. Follow up repeat blood cx. dispo plan for home d/c with aide in 24 hours pending no further fevers and ID input. Plan discussed with nursing and aide at bedside in detail, all questions answered Visit type - Emergency Visit Emergency Visit: Yes ED Registration Date: 05/31/18 Care time: The patient presented to the Emergency Department on the above date and was hospitalized for further evaluation of their emergent condition. - New Patient This patient is new to me today: Yes Date on this admission: 06/10/18 - Critical Care Critical Care patient: No - Discharge Referral Referred to [facility] Med P.C.: No
--- NOTE | 2018-06-10 11:38 | PN ---
Progress Note (short form) - Note Progress Note: intermittent low grade fevers on augmentin NAD looks quite comfortable no diarrhea Vital Signs Period Temp Pulse Resp BP Sys/Tate Pulse Ox Last 24 Hr 0.3 F-100.8 F 78-116 18-20 105-136/54-81 98 cor-rrr lungs clear abd soft,nt ext left foot- ulcer between the first and second toes- no purulence noted CBC, BMP 06/09/18 06:00 06/09/18 06:00 Microbiology 06/09/18 13:35 Urine - Urine - Catheterized Urine Culture - Final NO GROWTH OBTAINED 06/05/18 17:15 Blood - Peripheral Venous Blood Culture - Preliminary NO GROWTH OBTAINED AFTER 96 HOURS, INCUBATION TO CONTINUE FOR 1 DAYS. 06/05/18 18:15 Blood - Peripheral Venous Blood Culture - Preliminary NO GROWTH OBTAINED AFTER 96 HOURS, INCUBATION TO CONTINUE FOR 1 DAYS. 06/02/18 12:50 Blood - Peripheral Venous Blood Culture - Final NO GROWTH AFTER 5 DAYS INCUBATION 06/02/18 12:50 Blood - Peripheral Venous Blood Culture - Final NO GROWTH AFTER 5 DAYS INCUBATION 05/31/18 10:05 Blood - Peripheral Venous Blood Culture - Final NO GROWTH AFTER 5 DAYS INCUBATION 05/31/18 10:20 Blood - Peripheral Venous Blood Culture - Final NO GROWTH AFTER 5 DAYS INCUBATION 05/30/18 19:10 Urine - Urine - Catheterized Urine Culture - Final NO GROWTH OBTAINED a/p low grade fever- ?aspiration repeat cxray f/u cultures continue po augmentin s/p 5 days vanco/zosyn for cellulitis first toe- has ulcer between first and second- may need podiatry f/u,
[2018-06-10] MEDS: ACETAMINOPHEN 325 MG TABLET (FP) PO PRN (14:50)
[2018-06-10] MEDS: SENNOSIDES 8.6MG TABLET (FP) PO SCH (21:34)
[2018-06-11 07:11] LABS: BASO % 1.4 % (0-2.0); EOS % 16.5 % (0-4.5); HEMATOCRIT 33.7 % (32.4-45.2); HEMOGLOBIN 11.6 GM/dL (10.7-15.3); LYMPH % 19.4 % (8-40); MCH 30.1 pg (25.7-33.7); MCHC 34.4 g/dl (32.0-36.0); MEAN CELL VOLUME 87.6 fl (80-96); MEAN PLT VOLUME 7.1 fl (7.5-11.1); MONO % 11.2 % (3.8-10.2); NEUT % 51.5 % (42.8-82.8); PLATELET COUNT 362 K/MM3 (134-434); RBC 3.84 M/mm3 (3.60-5.2); RDW 13.9 % (11.6-15.6); WHITE BLOOD COUNT 8.4 K/mm3 (4.0-10.0)
[2018-06-11] MEDS ORDERED: PT OWN MED DRAWER 7, Y5N ONE (08:48)
[2018-06-11] MEDS: AMOX TR/POT CLAV 875MG/125MG TABLETS (FP) PO SCH (09:05)
[2018-06-11] MEDS: levETIRAcetam 250 MG TABLET (FP) PO SCH ×2 (09:05→21:00)
[2018-06-11] MEDS: METOPROLOL TARTRATE 25 MG TABLET (FP) PO SCH ×2 (09:06→21:00)
[2018-06-11] MEDS: ASPIRIN 81 MG CHEWABLE TABLETS PO SCH (09:06)
[2018-06-11] MEDS: MUPIROCIN 2% TOPICAL OINTMENT 22 GM TUBE TP SCH (09:06)
[2018-06-11] MEDS: ZONISAMIDE 100 MG/10 ML ORAL SUSPENSION PO SCH ×2 (09:06→21:00)
--- NOTE | 2018-06-11 10:31 | PN ---
Progress Note (short form) - Note Progress Note: intermittent low grade fevers on augmentin NAD looks quite comfortable no diarrhea Vital Signs Period Temp Pulse Resp BP Sys/Tate Pulse Ox Last 24 Hr 98.1 F-102.6 F 65-108 18-22 119-140/49-85 97 cor-rrr lungs decreased bs at bases abd soft,nt ext toe is dry, no drainage CBC, BMP 06/11/18 06:00 06/09/18 06:00 Microbiology 06/05/18 17:15 Blood - Peripheral Venous Blood Culture - Final NO GROWTH AFTER 5 DAYS INCUBATION 06/05/18 18:15 Blood - Peripheral Venous Blood Culture - Final NO GROWTH AFTER 5 DAYS INCUBATION 06/09/18 12:27 Blood - Peripheral Venous Blood Culture - Preliminary NO GROWTH OBTAINED AFTER 24 HOURS, INCUBATION TO CONTINUE FOR 4 DAYS. 06/09/18 12:15 Blood - Peripheral Venous Blood Culture - Preliminary NO GROWTH OBTAINED AFTER 24 HOURS, INCUBATION TO CONTINUE FOR 4 DAYS. 06/09/18 13:35 Urine - Urine - Catheterized Urine Culture - Final NO GROWTH OBTAINED 06/02/18 12:50 Blood - Peripheral Venous Blood Culture - Final NO GROWTH AFTER 5 DAYS INCUBATION 06/02/18 12:50 Blood - Peripheral Venous Blood Culture - Final NO GROWTH AFTER 5 DAYS INCUBATION 05/31/18 10:05 Blood - Peripheral Venous Blood Culture - Final NO GROWTH AFTER 5 DAYS INCUBATION 05/31/18 10:20 Blood - Peripheral Venous Blood Culture - Final NO GROWTH AFTER 5 DAYS INCUBATION 05/30/18 19:10 Urine - Urine - Catheterized Urine Culture - Final NO GROWTH OBTAINED cxray-difficult to evaluate a/p low grade fever- ?aspiration repeat cxray f/u cultures d/c antibioitics and observe eosinophilia? consider f/u with Cyn for MBS recent ct scans noted s/p 5 days vanco/zosyn for cellulitis first toe- has ulcer between first and second- may need podiatry f/u,
--- NOTE | 2018-06-11 11:59 | PN ---
Physical Exam: SUBJECTIVE: Patient seen and examined, nonverbal, unable to do ROS. OBJECTIVE: Vital Signs Period Temp Pulse Resp BP Sys/Tate Pulse Ox Last 24 Hr 98.1 F-102.6 F 65-108 18-22 119-140/49-85 97 GENERAL: The patient is sleeping, no acute distress, non verbal. HEAD: Normal with no signs of trauma. EYES: PERRL, extraocular movements intact, sclera anicteric, conjunctiva clear. No ptosis. ENT: Ears normal, nares patent, oropharynx clear without exudates, moist mucous membranes. NECK: Trachea midline, full range of motion, supple. LUNGS: decreased effort, lack of co-operation, no rales or wheezing appreciated HEART: Regular rate and rhythm, S1, S2 ABDOMEN: Soft, nontender,obese, normoactive bowel sounds, no guarding, no rebound EXTREMITIES: right great toe, dried blood, minimal erythema around nail bed and minimal swelling, non tender, no active discharge or foul smell noted SKIN: Warm, dry, normal turgor, no rashes or lesions noted Laboratory Results - last 24 hr 06/11/18 06:00 WBC 8.4 RBC 3.84 Hgb 11.6 Hct 33.7 D MCV 87.6 MCH 30.1 MCHC 34.4 RDW 13.9 Plt Count 362 D MPV 7.1 L Absolute Neuts (auto) 4.3 Neutrophils % 51.5 D Lymphocytes % 19.4 D Monocytes % 11.2 H Eosinophils % 16.5 H Basophils % 1.4 Nucleated RBC % 0 Active Medications Generic Name Dose Route Start Last Admin Trade Name Rajeevq PRN Reason Stop Dose Admin Acetaminophen 650 mg 05/31/18 09:11 06/10/18 14:50 Tylenol - PO 650 mg Q4H PRN Administration PAIN Aspirin 81 mg 05/31/18 10:00 06/11/18 09:06 Asa - PO 81 mg DAILY GISSEL Administration Levetiracetam 750 mg 05/31/18 22:00 06/11/18 09:05 Keppra - PO 750 mg BID GISSEL Administration Metoprolol Tartrate 25 mg 06/04/18 12:45 06/11/18 09:06 Lopressor - PO 25 mg BID GISSEL Administration Mupirocin 1 applic 06/05/18 10:00 02/03/19 09:06 Bactroban 2% Ointment - TP 1 applic DAILY GISSEL Administration Senna 3 tab 05/31/18 22:00 06/10/18 21:34 Senna - PO 3 tab HS GISSEL Administration Zonisamide 25 mg 05/31/18 22:00 06/11/18 09:06 Zonisamide PO 25 mg BID GISSEL Administration ASSESSMENT/PLAN: 89 yof with PMhx of Dementia (non verbal at baseline), seizure disorder, CAD, HTN admitted with fever, seizures found with right great toe cellulitis -Right great toe cellulitis s/p debridement -Seizure, ?in the setting of infection -Persistent fevers, ?Aspiration -CAD -HTN Plan: Podiatry/neurology input noted Zosinamide increased, continue keppra 750 mg BID, seizure precautions Wound care right great toe s/p 5 days of zosyn/vancomyin, on augmentin day 2. Recurrent fevers upto [address] Ayala. Abx d/luis. ?Aspiration. DIscuss with speech/swallow in AM. Aspiration precautions. Monitor off antibotics. u/a noted. Repeat blood cx neg so far. dispo plan for home d/c with aide when afebrile if no further clinical concerns. Plan discussed with linda, all questions answered Visit type - Emergency Visit Emergency Visit: Yes ED Registration Date: 05/31/18 Care time: The patient presented to the Emergency Department on the above date and was hospitalized for further evaluation of their emergent condition. - New Patient This patient is new to me today: No - Critical Care Critical Care patient: No - Discharge Referral Referred to [facility] Med P.C.: No
[2018-06-11] MEDS: SENNOSIDES 8.6MG TABLET (FP) PO SCH (21:00)
[2018-06-12 07:41] LABS: BASO % 1.1 % (0-2.0); EOS % 15.6 % (0-4.5); HEMATOCRIT 31.5 % (32.4-45.2); HEMOGLOBIN 10.7 GM/dL (10.7-15.3); MCH 29.7 pg (25.7-33.7); MCHC 33.9 g/dl (32.0-36.0); MEAN CELL VOLUME 87.7 fl (80-96); MEAN PLT VOLUME 7.1 fl (7.5-11.1); MONO % 13.1 % (3.8-10.2); NEUT % 48.2 % (42.8-82.8); PLATELET COUNT 288 K/MM3 (134-434); RDW 14.2 % (11.6-15.6); WHITE BLOOD COUNT 7.1 K/mm3 (4.0-10.0)
[2018-06-12] MEDS ORDERED: PT OWN MED DRAWER 7, Y5N ONE (09:58)
[2018-06-12] MEDS: levETIRAcetam 250 MG TABLET (FP) PO SCH ×2 (10:04→21:56)
[2018-06-12] MEDS: ASPIRIN 81 MG CHEWABLE TABLETS PO SCH (10:04)
[2018-06-12] MEDS: METOPROLOL TARTRATE 25 MG TABLET (FP) PO SCH ×2 (10:04→21:56)
[2018-06-12] MEDS: ZONISAMIDE 100 MG/10 ML ORAL SUSPENSION PO SCH ×3 (10:04→21:58)
[2018-06-12] MEDS: MUPIROCIN 2% TOPICAL OINTMENT 22 GM TUBE TP SCH (10:05)
--- NOTE | 2018-06-12 10:51 | PN ---
Progress Note, Physician Chief Complaint: Pt lying in bed in no acute distress. unable to obtain 2/2 advanced dementia. [employer] ASSOCIATE at bedside - Current Medication List Current Medications: Active Medications Acetaminophen (Tylenol -) 650 mg PO Q4H PRN PRN Reason: PAIN Last Admin: 06/10/18 14:50 Dose: 650 mg Aspirin (Asa -) 81 mg PO DAILY [facility] Last Admin: 06/12/18 10:04 Dose: 81 mg Levetiracetam (Keppra -) 750 mg PO BID [facility] Last Admin: 06/12/18 10:04 Dose: 750 mg Metoprolol Tartrate (Lopressor -) 25 mg PO BID [facility] Last Admin: 06/12/18 10:04 Dose: 25 mg Mupirocin (Bactroban 2% Ointment -) 1 applic TP DAILY [facility] Last Admin: 06/12/18 10:05 Dose: 1 applic Senna (Senna -) 3 tab PO HS [facility] Last Admin: 06/11/18 21:00 Dose: 3 tab Zonisamide (Zonisamide) 25 mg PO BID [facility] Last Admin: 06/12/18 10:04 Dose: 25 mg - Objective Vital Signs: Vital Signs Temperature 98.6 F 06/12/18 10:00 Pulse Rate 112 H 06/12/18 10:00 Respiratory Rate 20 06/12/18 10:00 Blood Pressure 115/63 06/12/18 10:00 O2 Sat by Pulse Oximetry (%) 97 06/11/18 21:00 Constitutional: Yes: Well Nourished, No Distress, Calm Cardiovascular: Yes: Regular Rate and Rhythm, Murmur Respiratory: Yes: Diminished, Rales (bibasilar). No: Accessory Muscle Use, SOB , Tachypnea, Wheezes Gastrointestinal: Yes: WNL, Normal Bowel Sounds, Soft, Abdomen, Obese. No: Distention, Tenderness Genitourinary: Yes: Incontinence Edema: No Integumentary: Yes: Other (right big toe cellulitis improved) Wound/Incision: Yes: Dressing Dry and Intact (right big toe) Neurological: Yes: Confusion, Lethargy Labs: CBC, BMP 06/12/18 07:00 06/09/18 06:00 INR, PTT INR 0.99 (0.83-1.09) 05/31/18 06:15 Assessment/Plan (1) Cellulitis Assessment/Plan: improved wbc count wnl po augmentin s/p debridement by podiatry Code(s): L03.90 - CELLULITIS, UNSPECIFIED Qualifiers: Site of cellulitis: extremity Site of cellulitis of extremity: toe Laterality: right Qualified Code(s): L03.031 - Cellulitis of right toe (3) Fever Assessment/Plan: spiking fevers repeat blood cultures neg possible aspiration ID following Code(s): R50.9 - FEVER, UNSPECIFIED Qualifiers: Encounter type: initial encounter (4) Leukocytosis Assessment/Plan: resolved Code(s): D72.829 - ELEVATED WHITE BLOOD CELL COUNT, UNSPECIFIED (5) Seizure Assessment/Plan: evaluated by neuro rafi arzate outpt follow up Code(s): R56.9 - UNSPECIFIED CONVULSIONS (6) Hypertension Assessment/Plan: controlled continue metoprolol Code(s): I10 - ESSENTIAL (PRIMARY) HYPERTENSION Qualifiers: Hypertension type: essential hypertension Qualified Code(s): I10 - Essential (primary) hypertension (7) Dementia Assessment/Plan: pt non verbal, bed-bound dysphagia pureed diet- coughing noted repeat MBS palliative team consulted Code(s): F03.90 - UNSPECIFIED DEMENTIA WITHOUT BEHAVIORAL DISTURBANCE Qualifiers: Dementia behavioral disturbance: without behavioral disturbance (8) Seizure disorder Assessment/Plan: acute on chronic as above Code(s): G40.909 - EPILEPSY, UNSP, NOT INTRACTABLE, WITHOUT STATUS EPILEPTICUS (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 Suspect persistent fevers 2/2 possible aspiration. Daughter notes pt to be coughing when eating on nectar thick. Pt is DNR/DNI, would not like PEG. I discussed that it appears as pt is end stage and we have agreed on having palliative team speaking with family regarding home hospice. Will do MBS today to reassess.
--- NOTE | 2018-06-12 11:30 | PN ---
Progress Note, [employer] - Note Progress Note: Selected Entries 06/10/18 06/10/18 06/10/18 02:00 06:00 14:59 Breakfast Lunch Supper Temperature 99.5 F 99.7 F H 102.6 F H 06/10/18 06/10/18 06/11/18 18:15 22:00 02:00 Breakfast Lunch Supper 75% Temperature 100.5 F H 99.0 F 98.2 F 06/11/18 06/11/18 06/11/18 06:00 08:57 15:09 Breakfast 50% Lunch 50% Supper Temperature 98.2 F 98.1 F 97.7 F 06/11/18 06/11/18 06/12/18 18:26 20:54 01:23 Breakfast Lunch Supper 100% Temperature 98.0 F 99.8 F H 98.7 F 06/12/18 06/12/18 05:47 10:00 Breakfast Lunch Supper Temperature 99.4 F 98.6 F CXR No infiltrate. Reported to cough intermittently meal time. On safest diet of puree/honey thick liquid. To repeat MBS
--- NOTE | 2018-06-12 14:04 | PN ---
Progress Note, Physician History of Present Illness: Awake. Eyes open, non verbal Low grade temp overnight WBC WNL Breathing non-labored. BC no growth CXR no new infiltrate MBS no aspiration - Current Medication List Current Medications: Active Medications Acetaminophen (Tylenol -) 650 mg PO Q4H PRN PRN Reason: PAIN Last Admin: 06/10/18 14:50 Dose: 650 mg Aspirin (Asa -) 81 mg PO DAILY [facility] Last Admin: 06/12/18 10:04 Dose: 81 mg Levetiracetam (Keppra -) 750 mg PO BID [facility] Last Admin: 06/12/18 10:04 Dose: 750 mg Metoprolol Tartrate (Lopressor -) 25 mg PO BID [facility] Last Admin: 06/12/18 10:04 Dose: 25 mg Mupirocin (Bactroban 2% Ointment -) 1 applic TP DAILY [facility] Last Admin: 06/12/18 10:05 Dose: 1 applic Senna (Senna -) 3 tab PO HS [facility] Last Admin: 06/11/18 21:00 Dose: 3 tab Zonisamide (Zonisamide) 50 mg PO BID [facility] - Objective Vital Signs: Vital Signs Temperature 98.6 F 06/12/18 10:00 Pulse Rate 112 H 06/12/18 10:00 Respiratory Rate 20 06/12/18 10:00 Blood Pressure 115/63 06/12/18 10:00 O2 Sat by Pulse Oximetry (%) 97 06/11/18 21:00 Constitutional: Yes: No Distress Eyes: Yes: Conjunctiva Clear Cardiovascular: Yes: Regular Rate and Rhythm, S1, S2 Respiratory: Yes: Diminished Gastrointestinal: Yes: Normal Bowel Sounds, Soft. No: Tenderness Extremities: Yes: Other (erythema great toe nearly all resolved) Labs: CBC, BMP 06/12/18 07:00 06/09/18 06:00 INR, PTT INR 0.99 (0.83-1.09) 05/31/18 06:15 Assessment/Plan Cellulitis R great toe improved S/P seizures S/P UTI Off antibiotics Observe Discussed with daughter at bedside
[2018-06-12] MEDS: SENNOSIDES 8.6MG TABLET (FP) PO SCH (21:56)
[2018-06-13 08:17] LABS: BASO % 1.4 % (0-2.0); EOS % 14.3 % (0-4.5); HEMATOCRIT 33.1 % (32.4-45.2); HEMOGLOBIN 11.5 GM/dL (10.7-15.3); LYMPH % 16.5 % (8-40); MCH 30.5 pg (25.7-33.7); MCHC 34.7 g/dl (32.0-36.0); MEAN PLT VOLUME 7.5 fl (7.5-11.1); MONO % 11.3 % (3.8-10.2); NEUT % 56.5 % (42.8-82.8); PLATELET COUNT 270 K/MM3 (134-434); RBC 3.77 M/mm3 (3.60-5.2); WHITE BLOOD COUNT 7.3 K/mm3 (4.0-10.0)
[2018-06-13] MEDS: levETIRAcetam 250 MG TABLET (FP) PO SCH (09:28)
[2018-06-13] MEDS: ASPIRIN 81 MG CHEWABLE TABLETS PO SCH (09:28)
[2018-06-13] MEDS: METOPROLOL TARTRATE 25 MG TABLET (FP) PO SCH (09:28)
[2018-06-13] MEDS: ZONISAMIDE 100 MG/10 ML ORAL SUSPENSION PO SCH (09:31)
--- NOTE | 2018-06-13 09:54 | DS ---
Physical Examination Vital Signs: Vital Signs Temperature 98.1 F 06/13/18 06:00 Pulse Rate 113 H 06/13/18 06:00 Respiratory Rate 20 06/13/18 06:00 Blood Pressure 120/60 06/13/18 06:00 O2 Sat by Pulse Oximetry (%) 97 06/12/18 21:00 Constitutional: Yes: Well Nourished, No Distress, Calm Cardiovascular: Yes: Regular Rate and Rhythm, Murmur Respiratory: Yes: Regular, Diminished (limited exam, pt not taking deep breaths) . No: Accessory Muscle Use, SOB, Tachypnea, Wheezes Gastrointestinal: Yes: WNL, Normal Bowel Sounds, Soft. No: Distention, Tenderness Renal/: Yes: Incontinence Extremities: Yes: Deformity (contracted) Edema: No Neurological: Yes: Alert, Confusion Psychiatric: Yes: Alert Labs: CBC, BMP 06/13/18 07:00 Discharge Summary Reason For Visit: SEIZURE DEMENTIA HTN FUNCTIONAL QUADRIPLEGIA Current Active Problems Cellulitis (Acute) Dementia (Acute) Fever (Acute) Hypertension (Acute) Leukocytosis (Acute) Pain and swelling of right upper extremity (Acute) Seizure (Acute) Hospital Course: 87 year old female with pmh significant of advanced dementia admitted for seizure and fevers. Pt evaluated by neurology, on max keppra, started on zonisamide, continue outpt follow up regarding [facility] medication plan. Fever - Right toe cellulitis noted, s/p debridement, continue bactroban and dry gauze dressing. Pt may follow up at wound center. Pt received 5 days of vanco/zosyn. Intermittent fevers noted, all cultures negative, highly suspicious for aspiration, chest xray without signicant changes, MBS repeated which did not reveal obvious signs of aspiration. However pt is still at high risk for aspiration and goals of care discussed with family, palliative team spoke with family, family feels as pt is not fully there for hospice however is okay with referral for home hospice.ID consult appreciated. All blood cultures negative thus far. Pt is medically stable for discharge home. Cleared by neurology, ID, and podiatry. HCP informed of discharge plan. Advise continued discussion regarding goals of care. 40 minutes spent in discharge planning Condition: Improved - Instructions Diet, Activity, Other Instructions: check keppra, zonisgran level in 1 week, please consult with or regarding seizure medication regimen DO NOT FILL AUGMENTIN- NO NEED FOR ANTIBX AT HOME Rx bactroban + dry gauze daily to R great toe Recommend offloading measures with suspension boots Patient can f/u upon discharge with in wound healing center. RECOMMENDATIONS: Continue puree diet and small single sips of thin liquid, from a cup or spoon, ideally out of bed in a chair if possible. Head of bed should always be elevated if fed in bed. Head positioning should be at in neutral, avoid extending patient's head while swallowing. If coughing is noted with single careful sips of thin liquid, patient may need to be downgraded to nectar thick liquid. Referrals: Miki Henderson MD [Staff Physician] - Bo Castro MD [Staff Physician] - Braden Harrington MD [Primary Care Provider] - Disposition: [facility]/HOME HEALTH CARE - Home Medications Comprehensive Discharge Medication List: Ambulatory Orders Metoprolol Succinate [Toprol XL -] 25 mg PO BID 01/15/14 Alprazolam 0.5 mg PO TID 12/30/15 Aspirin 81 mg PO DAILY 05/23/18 Sennosides [Senna] 3 tab PO HS 05/23/18 Mupirocin Ointment [Bactroban 2% Ointment -] 1 applic TP DAILY #2 tube 06/09/18 Zonisamide 50 mg PO BID #60 capsule 06/09/18 levETIRAcetam [Keppra -] 750 mg PO BID #60 tablet 06/09/18
[2018-06-13 10:00] VITALS: BP 114/58; PULSE 112; TEMP 98.7
[2018-06-13 10:14] LABS: ANION GAP 6 MMOL/L (8-16); BLOOD UREA NITROGEN 16 mg/dL (7-18); CALCIUM 8.6 mg/dL (8.5-10.1); CHLORIDE 109 mmol/L (98-107); CO2 22 mmol/L (21-32); CREATININE 0.9 mg/dL (0.55-1.3); GLUCOSE,RANDOM 92 mg/dL (74-106); SODIUM 137 mmol/L (136-145)
[2018-06-13] MEDS: MUPIROCIN 2% TOPICAL OINTMENT 22 GM TUBE TP SCH (10:47)
[2018-06-13] MEDS ORDERED: PT OWN MED DRAWER 7, Y5N ONE (11:02)
== END 2018-06-13 11:10 | disposition home health service (06) | DRG 100 ==
LOC: JER 14:55 → J5S 21:58 → INTOOBSV 05-31 18:53 → OBSVTOIN 05-31 18:53 → J5S 06-02 18:30
PROVIDERS: ADMIT Internal Medicine; ATTEND Nurse Practitioner Family
PROC: 0HBRXZZ Excision of Toe Nail, External Approach (ICD-10-PCS; principal; 2018-06-04)
PROC: 0H9MXZZ Drainage of Right Foot Skin, External Approach (ICD-10-PCS; 2018-06-04)
DX: R56.9 Unspecified convulsions (principal); R53.2 Functional quadriplegia; L03.031 Cellulitis of right toe; I25.10 Atherosclerotic heart disease of native coronary artery without angina pectoris; I10 Essential (primary) hypertension; F03.90 Unspecified dementia, unspecified severity, without behavioral disturbance, psychotic disturbance, mood disturbance, and anxiety; D72.829 Elevated white blood cell count, unspecified; B35.1 Tinea unguium
CPT/HCPCS: 36415; 70450-TC; 71045-TC-FY; 71250-TC; 73630-TC-LT; 73630-TC-RT-FY; 74176-TC; 74230-TC-FY; 80048; 80053; 80177; 80203; 81003; 81015; 82550; 83735; 84100; 84484; 84550; 85025; 85610; 85651; 85730; 87040; 87086; 92611-GN; 93005; 93010; 93971; 95816; 99285-25; G0378; J0131

== ENCOUNTER 2018-08-17 11:12 | Observation (INO) | payer OTHER ==
--- NOTE | 2018-08-17 12:25 | PDOC ---
History of Present Illness - General Stated Complaint: ABD PAIN Time Seen by Provider: 08/17/18 12:25 History Source: Care Provider Exam Limitations: Dementia - History of Present Illness Initial Comments: 08/17/18 12:56 88 year old female with PMH dementia (bed bound, A&Ox0 at baseline), seizure disorder, HTN, HLD sent to ED by Dr. Harrington for UTI. Per Dr. Harrington, urine culture grew resistant bacteria sensitive to Macrobid, but Macrobid gives her seizures, and he sent her to the ED to be admitted. Health aid at bedside stated the blood work and urine analysis was a part of her routine 3 month testing. Health aid stated there has been no change to her baseline. Allergies: NKDA Past History - Past Medical History Allergies/Adverse Reactions: Allergies Allergy/AdvReac Type Severity Reaction Status Date / Time nitrofurantoin AdvReac Severe Verified 08/17/18 20:14 [From Macrobid] Home Medications: Ambulatory Orders Alprazolam 0.5 mg PO TID 12/30/15 Aspirin 81 mg PO DAILY 05/23/18 Sennosides [Senna] 3 tab PO HS 05/23/18 Mupirocin Ointment [Bactroban 2% Ointment -] 1 applic TP DAILY #2 tube 06/09/18 Zonisamide 50 mg PO BID #60 capsule 06/09/18 levETIRAcetam [Keppra -] 750 mg PO BID #60 tablet 06/09/18 Metoprolol Tartrate 25 mg PO BID 08/17/18 Anemia: Yes Cardiac Disorders: Yes COPD: No Dementia: Yes GI Disorders: Yes Disorders: Yes (UTI 02/12/13) HTN: Yes Hypercholesterolemia: Yes Seizures: Yes Thyroid Disease: No - Surgical History Abdominal Surgery: Yes (colonostomy (reversed)) Appendectomy: No Cardiac Surgery: No Cholecystectomy: No GI Surgery: Yes (reversal of colostomy in 2006) Lung Surgery: No Neurologic Surgery: No - Immunization History Td Vaccination: Yes Immunization Up to Date: Yes - Suicide/Smoking/Psychosocial Hx Smoking Status: No Smoking History: Never smoked Years of Tobacco Use: 0 Have you smoked in the past 12 months: No Number of Cigarettes Smoked Daily: 0 Cigars Per Day: 0 Hx Alcohol Use: No Drug/Substance Use Hx: No Substance Use Type: None Hx Substance Use Treatment: No Review of Systems - Review of Systems Able to Perform ROS?: No Comments:: 08/17/18 12:58 Unable to perform ROS secondary to dementia. *Physical Exam - Physical Exam Comments: 08/17/18 12:58 Constitutional: laying in bed contracted, thin. HEENT: head is normocephalic, atraumatic. EOMI. PERRLA. dry oral mucosa. Neck: supple. Full ROM. Heart: regular rhythm. no murmurs, rubs or gallops. Lungs: clear to auscultation bilaterally. no crackles, rhonchi or wheezing. no stridor. Abdomen: soft, nontender. normal bowel sounds. no rebound, guarding, masses. Extremities: contracted. peripheral pulses intact. no lower extremity edema. Neurological: CN 2-12 grossly intact. moves all four extremities. Psych: awake, nonverbal, orientedx0. does not follow commands. ED Treatment Course - LABORATORY CBC & Chemistry Diagram: 08/18/18 07:00 08/18/18 07:00 Medical Decision Making - Medical Decision Making 08/17/18 13:03 88 year old female with above PMH sent to ED by Dr. Harrington for UTI. Pt has hx seizures with Macrobid use. Paperwork faxed from Dr. Harrington's office: -UA: 3+ LE, cloudy, positive nitrite, WBC>30 -UC: sensitive to Ceftriaxone, Zosyn, Cefepime, Meropenem, Ertapenem, Macrobid Initial Vital Signs Temp Pulse Resp BP Pulse Ox 98.8 F 80 16 155/93 97 08/17/18 11:12 08/17/18 11:12 08/17/18 11:12 08/17/18 11:12 08/17/18 11:12 Afebrile. No tachycardia. No tachypnea. Mild hypertension. No hypoxia on room air. Labs ordered: CBC, CMP, Mag, Phos, lactate, VBG, UA/UC, blood cultures, PT/PTT/ INR Imaging ordered: CXR Medications ordered: normal saline bolus 500 cc once EKG: rate 96, first degree AV block, poor quality. 08/17/18 13:37 CBC WBC 6.0 K/mm3 (4.0-10.0) 08/17/18 12:47 RBC 4.50 M/mm3 (3.60-5.2) 08/17/18 12:47 Hgb 12.8 GM/dL (10.7-15.3) 08/17/18 12:47 Hct 38.9 % (32.4-45.2) D 08/17/18 12:47 MCV 86.4 fl (80-96) 08/17/18 12:47 MCH 28.3 pg (25.7-33.7) 08/17/18 12:47 MCHC 32.8 g/dl (32.0-36.0) 08/17/18 12:47 RDW 14.3 % (11.6-15.6) 08/17/18 12:47 Plt Count 185 K/MM3 (134-434) D 08/17/18 12:47 MPV 7.9 fl (7.5-11.1) 08/17/18 12:47 Absolute Neuts (auto) 3.1 K/mm3 (1.5-8.0) 08/17/18 12:47 Neutrophils % 51.2 % (42.8-82.8) 08/17/18 12:47 Lymphocytes % 33.3 % (8-40) D 08/17/18 12:47 Monocytes % 10.6 % (3.8-10.2) H 08/17/18 12:47 Eosinophils % 3.9 % (0-4.5) 08/17/18 12:47 Basophils % 1.0 % (0-2.0) 08/17/18 12:47 Nucleated RBC % 0 % (0-0) 08/17/18 12:47 No leukocytosis. No anemia. 08/17/18 13:46 CMP Sodium 140 mmol/L (136-145) 08/17/18 12:47 Potassium 4.4 mmol/L (3.5-5.1) 08/17/18 12:47 Chloride 110 mmol/L (98-107) H 08/17/18 12:47 Carbon Dioxide 21 mmol/L (21-32) 08/17/18 12:47 Anion Gap 9 MMOL/L (8-16) 08/17/18 12:47 BUN 12 mg/dL (7-18) 08/17/18 12:47 Creatinine 0.8 mg/dL (0.55-1.3) 08/17/18 12:47 Creat Clearance w eGFR 67.85 (>60) 08/17/18 12:47 Random Glucose 86 mg/dL (74-106) 08/17/18 12:47 Lactic Acid 1.4 mmol/L (0.4-2.0) 08/17/18 12:47 Calcium 8.6 mg/dL (8.5-10.1) 08/17/18 12:47 Phosphorus 3.5 mg/dL (2.5-4.9) 08/17/18 12:47 Magnesium 2.2 mg/dL (1.8-2.4) 08/17/18 12:47 Total Bilirubin 0.2 mg/dL (0.2-1) 08/17/18 12:47 AST 15 U/L (15-37) 08/17/18 12:47 ALT 14 U/L (13-61) 08/17/18 12:47 Alkaline Phosphatase 125 U/L (45-117) H 08/17/18 12:47 Total Protein 7.2 g/dl (6.4-8.2) 08/17/18 12:47 Albumin 3.3 g/dl (3.4-5.0) L 08/17/18 12:47 No electrolyte abnormalities. No OMEGA. Normal lactate. No transaminitis. I spoke with Dr. Ma about the patient. Pt to be admitted to Med/Surg obs. CXR report pending. 08/18/18 12:36 Follow up: CXR report: no acute intrathoracic abnormality. *DC/Admit/Observation/Transfer Diagnosis at time of Disposition: UTI (urinary tract infection) - Discharge Dispostion Condition at time of disposition: Stable Decision to Admit order: Yes - Referrals - Patient Instructions - Post Discharge Activity
--- NOTE | 2018-08-17 12:34 | PDOC ---
Attending Attestation - HPI HPI: 08/17/18 13:48 The patient is an 88-year-old female, with a past medical history of HTN, HLD, dementia (patient is bed bound, A&Ox0 at baseline), seizure disorder, who was sent to the ED by Dr. Harrington for UTI. Dr. Harrington reports that the urine culture grew resistant bacteria sensitive to Macrobid and wants the patient to be admitted. Health aide is at bedside and reports that the patient had the blood work and urine analysis performed as a part of her 3 month workup. She reports that the patient is at her baseline and is experiencing no other symptoms. - Physicial Exam PE: 08/17/18 15:08 GENERAL: (+)Awake, alert, nonverbal, in no acute distress HEAD: No signs of trauma EYES: PERRLA, EOMI, sclera anicteric, conjunctiva clear ENT: Auricles normal inspection, hearing grossly normal, nares patent, oropharynx clear without exudates. Moist mucosa NECK: Normal ROM, supple, no lymphadenopathy, JVD, or masses LUNGS: Breath sounds equal, clear to auscultation bilaterally. No wheezes, and no crackles HEART: Regular rate and rhythm, normal S1 and S2, no murmurs, rubs or gallops ABDOMEN: Soft, nontender, normoactive bowel sounds. No guarding, no rebound. No masses EXTREMITIES: Normal range of motion, no edema. No clubbing or cyanosis. No cords, erythema, or tenderness NEUROLOGICAL: (+)Nonverbal, does not follow commands. As per aide, patient is at her baseline. SKIN: Warm, Dry, normal turgor, no rashes or lesions noted <Yarelis Chamberlain - Last Filed: 08/17/18 15:08> - Resident Resident Name: Stephanie Fabian - Medical Decision Making 08/19/18 17:31 Pt presents to the ED after sent in by Dr. Harrington for UTI resistant to all PO antibiotics except macrobid. Patient has seizures when she takes macrobid. Will start Iv antibiotics and admit to medicine. <Edith Jeter - Last Filed: 08/19/18 17:32> Attestations - Attestations 08/17/18 13:48 Documentation prepared by Yarelis Chamberlain, acting as medical research tech for Edith Jeter MD. <Yarelis Chamberlain - Last Filed: 08/17/18 15:08>
[2018-08-17 12:54] VITALS: BMI 20.8
[2018-08-17] MEDS ORDERED: SODIUM CHLORIDE 500 ML IV STA ×2 (12:59→17:48)
[2018-08-17 13:09] LABS: EOS % 3.9 % (0-4.5); HEMATOCRIT 38.9 % (32.4-45.2); HEMOGLOBIN 12.8 GM/dL (10.7-15.3); LYMPH % 33.3 % (8-40); MCH 28.3 pg (25.7-33.7); MCHC 32.8 g/dl (32.0-36.0); MEAN CELL VOLUME 86.4 fl (80-96); MEAN PLT VOLUME 7.9 fl (7.5-11.1); MONO % 10.6 % (3.8-10.2); NEUT % 51.2 % (42.8-82.8); PLATELET COUNT 185 K/MM3 (134-434); RDW 14.3 % (11.6-15.6)
[2018-08-17 13:43] LABS: ALBUMIN 3.3 g/dl (3.4-5.0); ALK PHOS 125 U/L (45-117); ANION GAP 9 MMOL/L (8-16); BILIRUBIN,TOTAL 0.2 mg/dL (0.2-1); BLOOD UREA NITROGEN 12 mg/dL (7-18); CALCIUM 8.6 mg/dL (8.5-10.1); CHLORIDE 110 mmol/L (98-107); CO2 21 mmol/L (21-32); CREATININE 0.8 mg/dL (0.55-1.3); GLUCOSE,RANDOM 86 mg/dL (74-106); MAGNESIUM 2.2 mg/dL (1.8-2.4); PHOSPHOROUS 3.5 mg/dL (2.5-4.9); POTASSIUM 4.4 mmol/L (3.5-5.1); SGOT/AST 15 U/L (15-37); SGPT/ALT 14 U/L (13-61); SODIUM 140 mmol/L (136-145); TOT PROT 7.2 g/dl (6.4-8.2)
[2018-08-17] MEDS ORDERED: PIPERACILLIN/TAZOB 4.5 GM 4.5 GM in DEXTROSE 5%-WATER 100 ML IVPB ONE (13:46)
[2018-08-17 13:50] LABS: INR 0.95 (0.83-1.09); PROTHROMBIN TIME (PATIENT) 11.2 SEC (9.7-13.0)
[2018-08-17] MEDS ORDERED: PIPERACILLIN/TAZOB 4.5 GM 4.5 GM/100 ML BAG IVPB ONE (13:57)
[2018-08-17] MEDS ORDERED: ACETAMINOPHEN 500 MG TABLET (FP) PO PRN (15:59)
[2018-08-17] MEDS ORDERED: SODIUM CHLORIDE 1,000 ML IV SCH (16:00)
--- NOTE | 2018-08-17 16:01 | HP ---
CHIEF COMPLAINT: UTI PCP: Dr Harrington HISTORY OF PRESENT ILLNESS: The following history obtained with the assistance of he patient's aide that was present at bedside. The patient is an 87 yo f w/ PMH of dementia (nonverbal at baseline) seizure disorder, CAD, HTN, dyslipidemia, who was referred to the hospital by her PCP -Dr Harrington for UTI that was diagnosed based on her screening UA that she gets every few months. According to the aid, she has been moaning more and "has flushed cheecks". She hasn't noticed fever, chills, loss of appetite. According to the PCP, the patient is resistant to Macrobid and also gets seizures due to that medications. Patient's aide endorses medication compliance. ER course was notable for: (1)Zosyn (2)CXR (3)NS Recent Travel:no PAST MEDICAL HISTORY: as above and pulmonary nodule, renal cyst, osteoporosisgastritis, osteoarthritis PAST SURGICAL HISTORY: s/p colostomy reversal Social History: Smoking: no Alcohol:no Drugs: no Family History: n/a Allergies No Known Allergies Allergy (Verified 08/17/18 12:48) HOME MEDICATIONS: Home Medications Medication Instructions Recorded Metoprolol Succinate [Toprol XL -] 25 mg PO BID 01/15/14 Alprazolam 0.5 mg PO TID 12/30/15 Aspirin 81 mg PO DAILY 05/23/18 Sennosides [Senna] 3 tab PO HS 05/23/18 Mupirocin Ointment [Bactroban 2% 1 applic TP DAILY #2 tube 06/09/18 Ointment -] Zonisamide 50 mg PO BID #60 capsule 06/09/18 levETIRAcetam [Keppra -] 750 mg PO BID #60 tablet 06/09/18 REVIEW OF SYSTEMS n/a PHYSICAL EXAMINATION Vital Signs - 24 hr 08/17/18 11:12 Temperature 98.8 F Pulse Rate 80 Respiratory 16 Rate Blood Pressure 155/93 O2 Sat by Pulse 97 Oximetry (%) GENERAL: Patient lethargic, reacts to touch, unable to follow commands, nonverbal. HEAD: Normal with no signs of trauma. EYES: Pupils equal, round and reactive to light, sclera anicteric, conjunctiva clear. LUNGS: Breath sounds equal, clear to auscultation bilaterally. No wheezes, and no crackles. No accessory muscle use. HEART: Regular rate and rhythm, normal S1 and S2 without murmur, rub or gallop. ABDOMEN: Soft, nontender, not distended, normoactive bowel sounds, no guarding, no rebound, no masses. No hepatomegaly or splenomegaly. No CVA tenderness. LOWER EXTREMITIES: 2+ pulses, warm, well-perfused. No calf tenderness. No peripheral edema. NEUROLOGICAL: Unable to obtain 2/2 clinical status. SKIN: Warm, dry, normal turgor, no rashes or lesions noted, normal capillary refill. Laboratory Results - last 24 hr 08/17/18 08/17/18 08/17/18 12:47 12:47 12:47 WBC 6.0 RBC 4.50 Hgb 12.8 Hct 38.9 D MCV 86.4 MCH 28.3 MCHC 32.8 RDW 14.3 Plt Count 185 D MPV 7.9 Absolute Neuts (auto) 3.1 Neutrophils % 51.2 Lymphocytes % 33.3 D Monocytes % 10.6 H Eosinophils % 3.9 Basophils % 1.0 Nucleated RBC % 0 PT with INR INR PTT (Actin FS) Sodium 140 Potassium 4.4 Chloride 110 H Carbon Dioxide 21 Anion Gap 9 BUN 12 Creatinine 0.8 Creat Clearance w eGFR 67.85 Random Glucose 86 Lactic Acid 1.4 Calcium 8.6 Phosphorus 3.5 Magnesium 2.2 Total Bilirubin 0.2 AST 15 ALT 14 Alkaline Phosphatase 125 H Total Protein 7.2 Albumin 3.3 L 08/17/18 12:50 WBC RBC Hgb Hct MCV MCH MCHC RDW Plt Count MPV Absolute Neuts (auto) Neutrophils % Lymphocytes % Monocytes % Eosinophils % Basophils % Nucleated RBC % PT with INR 11.20 INR 0.95 PTT (Actin FS) 26.0 Sodium Potassium Chloride Carbon Dioxide Anion Gap BUN Creatinine Creat Clearance w eGFR Random Glucose Lactic Acid Calcium Phosphorus Magnesium Total Bilirubin AST ALT Alkaline Phosphatase Total Protein Albumin ASSESSMENT/PLAN: The patient is an 87 yo f w/ PMH of severe dementia, sezure disorder, recurrent UTIs, HTN, hyperlipidemia who comes referred by PCP for UTI. UTI: -Patient was diagnosed with UTI: WBC 30, 3 + LE -given Zosyn, will cont Ceftriaxone 1 mg qd -repeate UA. U culture, fluids at 42 c/hr -afebrile without leukocytosis at this time Seizure disorder; -no seizures here -cont keppra 750 mg BId -seizure precautions -HOB f-all risk CAD, HTN, previous stroke -asa 81 daily -toprol XL 25mg BID FEN -ns -lytes WNL -puree diet (home diet) Prophy -SCDs Dispo -observe on med-surg Problem List - Problem (1) UTI (urinary tract infection) Code(s): N39.0 - URINARY TRACT INFECTION, SITE NOT SPECIFIED Qualifiers: (2) OMEGA (acute kidney injury) Code(s): N17.9 - ACUTE KIDNEY FAILURE, UNSPECIFIED (3) Cellulitis Code(s): L03.90 - CELLULITIS, UNSPECIFIED Qualifiers: Site of cellulitis: extremity Site of cellulitis of extremity: toe Laterality: right Qualified Code(s): L03.031 - Cellulitis of right toe (4) Coronary artery disease Code(s): I25.10 - ATHSCL HEART DISEASE OF [place] CORONARY ARTERY W/O ANG PCTRS (5) Cough Code(s): R05 - COUGH (6) DVT prophylaxis Code(s): OFI8347 - (7) Dementia Code(s): F03.90 - UNSPECIFIED DEMENTIA WITHOUT BEHAVIORAL DISTURBANCE Qualifiers: Dementia type: unspecified type Dementia behavioral disturbance: without behavioral disturbance Qualified Code(s): F03.90 - Unspecified dementia without behavioral disturbance (8) Diverticulosis Code(s): K57.90 - DVRTCLOS OF INTEST, PART UNSP, W/O PERF OR ABSCESS W/O BLEED (9) Elevated lactic acid level Code(s): E87.2 - ACIDOSIS (10) Fever Code(s): R50.9 - FEVER, UNSPECIFIED Qualifiers: Encounter type: initial encounter (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 - FUNCTIONAL QUADRIPLEGIA (12) Hypertension Code(s): I10 - ESSENTIAL (PRIMARY) HYPERTENSION Qualifiers: Hypertension type: unspecified Qualified Code(s): I10 - Essential (primary ) hypertension (13) Hypokalemia Code(s): E87.6 - HYPOKALEMIA (14) Lactic acidosis Code(s): E87.2 - ACIDOSIS (15) Leukocytosis Code(s): D72.829 - ELEVATED WHITE BLOOD CELL COUNT, UNSPECIFIED (16) Leukocytosis (leucocytosis) Code(s): D72.829 - ELEVATED WHITE BLOOD CELL COUNT, UNSPECIFIED (17) Metabolic encephalopathy Code(s): G93.41 - METABOLIC ENCEPHALOPATHY (18) Pain and swelling of right upper extremity Code(s): M79.601 - PAIN IN RIGHT ARM; M79.89 - OTHER SPECIFIED SOFT TISSUE DISORDERS (19) Recurrent urinary tract infection Code(s): N39.0 - URINARY TRACT INFECTION, SITE NOT SPECIFIED (20) Seizure Code(s): R56.9 - UNSPECIFIED CONVULSIONS (21) Seizure disorder Code(s): G40.909 - EPILEPSY, UNSP, NOT INTRACTABLE, WITHOUT STATUS EPILEPTICUS (22) Sepsis Code(s): A41.9 - SEPSIS, UNSPECIFIED ORGANISM Qualifiers: Sepsis type: sepsis due to unspecified organism Qualified Code(s): A41.9 - Sepsis, unspecified organism (23) Syncope Code(s): R55 - SYNCOPE AND COLLAPSE (24) UTI (lower urinary tract infection) Code(s): N39.0 - URINARY TRACT INFECTION, SITE NOT SPECIFIED Visit type - Emergency Visit Emergency Visit: Yes ED Registration Date: 08/17/18 Care time: The patient presented to the Emergency Department on the above date and was hospitalized for further evaluation of their emergent condition. - New Patient This patient is new to me today: Yes Date on this admission: 08/17/18 - Critical Care Critical Care patient: No
--- NOTE | 2018-08-17 17:03 | PN ---
Teaching Attending Note Name of Resident: India Reyes ATTENDING PHYSICIAN STATEMENT I saw and evaluated the patient. I reviewed the resident's note and discussed the case with the resident. I agree with the resident's findings and plan as documented with exceptions below. SUBJECTIVE: 88 yof with PMHx of dementia (Non verbal non ambulatory at baseline), CAD, HTN , seizure disorder, recurrent UTIs, recent admission with toe cellulitis, was sent to ED by PCP for IV antibiotic management for UTI. Patient 3 monthly urine studies concerning for UTI, urine cultures with multi resistant E.Coli, Sensitive only to oral nitrofurantoin (reported h/o seizures on macrobid in the past per discussion with health aide). Per aide, patient noted more restless over the last few days which is usual when she has UTI. no fevers, chills, decreased po intake or concerns of pain otherwise. 12 point ROS attempted but unable as patient with severe dementia, non verbal at baseline with no participation or interaction. OBJECTIVE: Vital Signs Period Temp Pulse Resp BP Sys/Tate Pulse Ox Last 24 Hr 98.8 F 80 16 155/93 97 Intake & Output 08/14/18 08/15/18 08/16/18 08/17/18 23:59 23:59 23:59 23:59 Weight 114 lb GENERAL: awake, moans, no participation in the interview,no acute distress HEAD: Normal with no signs of trauma. EYES: Pupils equal, round and reactive to light, extraocular movements intact, sclera anicteric, conjunctiva clear. No lid lag. EARS, NOSE, THROAT: Ears normal, nares patent, oropharynx clear without exudates. Moist mucous membranes. NECK: soft, supple LUNGS: poor effort, limited due to lack of co-operation, no rales or wheezing appreciated. HEART: Regular rate and rhythm, normal S1 and S2 ABDOMEN: Soft, no grimacing on exam, none noted on suprapubic and CVA tenderness , no voluntary or involuntary guarding or rigidity, positive bowel sounds MUSCULOSKELETAL: contractures of all extremities UPPER EXTREMITIES:contractures, no edema LOWER EXTREMITIES: contractures, no edema or erythema noted NEUROLOGICAL: Awake, Ox0, no participation in interview or interaction, contractures of all extremities, withdraws spontaneously and to pain PSYCHIATRIC: moaning, disoriented SKIN: Warm, dry, normal turgor, no rashes or lesions noted, normal capillary refill. Home Medications Medication Instructions Recorded Metoprolol Succinate [Toprol XL -] 25 mg PO BID 01/15/14 Alprazolam 0.5 mg PO TID 12/30/15 Aspirin 81 mg PO DAILY 05/23/18 Sennosides [Senna] 3 tab PO HS 05/23/18 Mupirocin Ointment [Bactroban 2% 1 applic TP DAILY #2 tube 06/09/18 Ointment -] Zonisamide 50 mg PO BID #60 capsule 06/09/18 levETIRAcetam [Keppra -] 750 mg PO BID #60 tablet 06/09/18 Active Medications Acetaminophen (Tylenol -) 500 mg PO Q6H PRN PRN Reason: FEVER Aspirin (Asa -) 81 mg PO DAILY [facility] Ceftriaxone Sodium 1 gm/ (Dextrose) 50 mls @ 100 mls/hr IVPB DAILY GISSEL; Protocol Sodium Chloride (Normal Saline -) 1,000 mls @ 42 mls/hr IV ASDIR GISSEL Stop: 08/18/18 15:49 Levetiracetam (Keppra -) 750 mg PO BID [facility] Metoprolol Succinate (Toprol Xl -) 25 mg PO BID [facility] Mupirocin (Bactroban 2% Ointment -) 1 applic TP DAILY [facility] Senna (Senna -) 3 tab PO HS [facility] Zonisamide (Zonegran -) 100 mg PO DAILY [facility] Laboratory Results - last 24 hr 08/17/18 08/17/18 08/17/18 12:47 12:47 12:47 WBC 6.0 RBC 4.50 Hgb 12.8 Hct 38.9 D MCV 86.4 MCH 28.3 MCHC 32.8 RDW 14.3 Plt Count 185 D MPV 7.9 Absolute Neuts (auto) 3.1 Neutrophils % 51.2 Lymphocytes % 33.3 D Monocytes % 10.6 H Eosinophils % 3.9 Basophils % 1.0 Nucleated RBC % 0 PT with INR INR PTT (Actin FS) Sodium 140 Potassium 4.4 Chloride 110 H Carbon Dioxide 21 Anion Gap 9 BUN 12 Creatinine 0.8 Creat Clearance w eGFR 67.85 Random Glucose 86 Lactic Acid 1.4 Calcium 8.6 Phosphorus 3.5 Magnesium 2.2 Total Bilirubin 0.2 AST 15 ALT 14 Alkaline Phosphatase 125 H Total Protein 7.2 Albumin 3.3 L 08/17/18 12:50 WBC RBC Hgb Hct MCV MCH MCHC RDW Plt Count MPV Absolute Neuts (auto) Neutrophils % Lymphocytes % Monocytes % Eosinophils % Basophils % Nucleated RBC % PT with INR 11.20 INR 0.95 PTT (Actin FS) 26.0 Sodium Potassium Chloride Carbon Dioxide Anion Gap BUN Creatinine Creat Clearance w eGFR Random Glucose Lactic Acid Calcium Phosphorus Magnesium Total Bilirubin AST ALT Alkaline Phosphatase Total Protein Albumin Urine cultures from 08/10/2018: E. coli sensitive to Ceftriaxone, ertapenem, imipenem, meropenem, nitrofurantoin , zosyn ASSESSMENT AND PLAN: 88 yof with PMHx of dementia (Non verbal non ambulatory at baseline), CAD, HTN , seizure disorder, recurrent UTIs, recent admission with toe cellulitis admitted with lower uncomplicated UTI needing IV antibiotics. -Lower uncomplicated E. Coli UTI -Seizure disorder -Advanced dementia -CAD -HTN -Recent toe cellulitis Plan: Ceftriaxone, repeat ua and urine cultures via straight cath, discussed with nursing. ID input Dr. Wei. Continue home meds. Address advance directives with family DVTPPX heparin Dispo in 1-2 days pending clinical improvement. Plan discussed with aide at bedside, all questions answered. Care co-ordinated with ED Total admit time spent 55 min.
--- NOTE | 2018-08-17 17:23 | PN ---
Progress Note (short form) - Note Progress Note: ID CONSULT DICTATED RECURRENT UTI R/O SEPSIS SECONDARY TO UTI SEIZURE DISORDER OBS OBTAIN OUTPATIENT C/S REPORT [id number] 1GM Q24H
[2018-08-17] MEDS ORDERED: SODIUM CHLORIDE 0.9% 500 ML INFUS.BAG IV ONE (17:52)
[2018-08-17] MEDS: ZONISAMIDE 100 MG CAPSULE PO SCH (18:04)
--- NOTE | 2018-08-17 20:00 | CONS ---
DATE OF CONSULTATION: 08/17/2018 HISTORY OF PRESENT ILLNESS: The patient is an 88-year-old demented female with a history of recurrent urinary tract infections, now being evaluated for a urinary tract infection. The patient cannot give a history secondary to dementia. Her home health aide is present and reports that the patient has been more lethargic than normal, has been moaning more and has been less interactive. She was taken to her primary care physician for a routine checkup and on examination, she was found to have cloudy urine. The home health aide reports that the patient has been moaning more than usual and had appeared flushed, although she had not documented any fever. No reports of shaking chills. The patient had a hospital admission in May for seizure activity. Prior to that, she had been hospitalized with a urinary tract infection. On review of previous cultures, she has had positive urine cultures for pseudomonas, E. coli and yeast. PAST MEDICAL HISTORY: Positive for dementia, seizure disorder, hypertension, hyperlipidemia. PAST SURGICAL HISTORY: Status post colostomy with reversal. ALLERGIES: No known drug allergies. MEDICATIONS: Toprol, alprazolam, aspirin, Keppra. LABORATORY DATA: A urinalysis showed greater than 30 white cells. Blood cultures and urine culture are pending. White blood cell count 6.0, hematocrit 38.9, platelet count 185, BUN 12, creatinine 0.8. PHYSICAL EXAMINATION: General: The patient is an elderly, demented female, not conversant. She is in no acute distress. Vital Signs: Temperature 98.8, pulse 80 and regular, blood pressure 155/93, respiratory rate 16 per minute. HEENT: Sclerae anicteric. Her cheeks appear flushed. Heart: Heart sounds S1, S2. Lungs: Grossly clear but with poor respiratory effort. Abdomen: Soft. No tenderness elicited. Extremities: Negative for edema. IMPRESSION: 1. Recurrent urinary tract infection; rule out sepsis secondary to urinary tract infection. 2. Seizure disorder. 3. Dementia. PLAN: 1. Obtain outpatient urine culture and sensitivity report. According to the emergency room note, urine isolate was susceptible to ceftriaxone. We will give ceftriaxone 1 gram IV piggyback daily every 24 hours. 2. Further recommendations pending cultures. Will follow. Thank you for the kind referral. JEAN PINEDA M.D. [id number]
[2018-08-17] MEDS ORDERED: metoPROLOL SUCCINATE 25 MG TAB.SR.24H (FP) PO SCH (22:00)
[2018-08-17] MEDS: levETIRAcetam 250 MG TABLET (FP) PO SCH (22:15)
[2018-08-17] MEDS: ALPRAZolam 0.25 MG TABLET PO SCH (22:16)
[2018-08-17] MEDS: SENNOSIDES 8.6MG TABLET (FP) PO SCH (22:16)
[2018-08-17] MEDS: METOPROLOL TARTRATE 25 MG TABLET (FP) PO SCH (22:18)
[2018-08-18] MEDS: ALPRAZolam 0.25 MG TABLET PO SCH ×3 (05:13→22:01)
[2018-08-18 07:46] LABS: BASO % 0.6 % (0-2.0); EOS % 4.3 % (0-4.5); HEMOGLOBIN 12.1 GM/dL (10.7-15.3); LYMPH % 38.7 % (8-40); MCH 28.3 pg (25.7-33.7); MCHC 32.8 g/dl (32.0-36.0); MEAN CELL VOLUME 86.4 fl (80-96); MEAN PLT VOLUME 7.8 fl (7.5-11.1); MONO % 11.5 % (3.8-10.2); NEUT % 44.9 % (42.8-82.8); PLATELET COUNT 180 K/MM3 (134-434); RBC 4.28 M/mm3 (3.60-5.2); RDW 14.5 % (11.6-15.6); WHITE BLOOD COUNT 4.8 K/mm3 (4.0-10.0)
[2018-08-18 08:26] LABS: ALBUMIN 2.9 g/dl (3.4-5.0); ALK PHOS 108 U/L (45-117); ANION GAP 6 MMOL/L (8-16); BILIRUBIN,TOTAL 0.3 mg/dL (0.2-1); BLOOD UREA NITROGEN 11 mg/dL (7-18); CALCIUM 8.6 mg/dL (8.5-10.1); CHLORIDE 113 mmol/L (98-107); CO2 21 mmol/L (21-32); CREATININE 0.8 mg/dL (0.55-1.3); GLUCOSE,RANDOM 113 mg/dL (74-106); MAGNESIUM 2.4 mg/dL (1.8-2.4); PHOSPHOROUS 3.2 mg/dL (2.5-4.9); POTASSIUM 4.3 mmol/L (3.5-5.1); SGOT/AST 13 U/L (15-37); SGPT/ALT 12 U/L (13-61); SODIUM 139 mmol/L (136-145); TOT PROT 6.6 g/dl (6.4-8.2)
[2018-08-18] MEDS ORDERED: cefTRIAXone SODIUM 1 GM VIAL ONE (09:39)
[2018-08-18] MEDS ORDERED: DEXTROSE 5%-WATER - 50 ML IVPB ONE (09:39)
[2018-08-18] MEDS ORDERED: ASPIRIN 81 MG CHEWABLE TABLETS PO SCH (10:00)
[2018-08-18] MEDS: CEFTRIAXONE 1 GM in DEXTROSE 5%-WATER - 50 ML IVPB SCH (10:13)
[2018-08-18] MEDS: levETIRAcetam 250 MG TABLET (FP) PO SCH ×2 (10:14→22:01)
[2018-08-18] MEDS: METOPROLOL TARTRATE 25 MG TABLET (FP) PO SCH ×2 (10:14→22:02)
--- NOTE | 2018-08-18 10:26 | EKG ---
Test Reason : Blood Pressure : / mmHG Vent. Rate : 096 BPM Atrial Rate : 081 BPM P-R Int : 216 ms QRS Dur : 052 ms QT Int : 354 ms P-R-T Axes : 034 000 050 degrees QTc Int : 447 ms POOR DATA QUALITY, INTERPRETATION MAY BE ADVERSELY AFFECTED SINUS RHYTHM WITH 1ST DEGREE A-V BLOCK WITH PREMATURE SUPRAVENTRICULAR COMPLEXES LOW VOLTAGE QRS INFERIOR INFARCT , POSSIBLY ACUTE ANTEROLATERAL INFARCT (CITED ON OR BEFORE 30-DEC-2015) ABNORMAL ECG Confirmed by LEANNE GIBBONS, KEYONNA ([id number]) on 08/18/2018 10:25:45 AM Referred By: Confirmed By:KEYONNA PERDOMO MD
--- NOTE | 2018-08-18 11:03 | PN ---
Teaching Attending Note Name of Resident: India Reyes ATTENDING PHYSICIAN STATEMENT I saw and evaluated the patient. I reviewed the resident's note and discussed the case with the resident. I agree with the resident's findings and plan as documented with exceptions below. SUBJECTIVE: Patient seen and examined. More interactive today. non verbal, unable to asses ROS. OBJECTIVE: Vital Signs Period Temp Pulse Resp BP Sys/Tate Pulse Ox Last 24 Hr 98.3 F-98.8 F 78-95 16-20 107-155/60-93 97-97 Intake & Output 08/15/18 08/16/18 08/17/18 08/18/18 23:59 23:59 23:59 23:59 Intake Total 294 Output Total 400 Balance -106 Weight 114 lb General: sitting in bed, more interactive, no acute distress Chest: poor effort Abdomen:soft, no grimacing on palpation, no voluntary or involuntary guarding or rigidity, positive bowel sounds Extremities: contractures, no edema or erythema Home Medications Medication Instructions Recorded Alprazolam 0.5 mg PO TID 12/30/15 Aspirin 81 mg PO DAILY 05/23/18 Sennosides [Senna] 3 tab PO HS 05/23/18 Mupirocin Ointment [Bactroban 2% 1 applic TP DAILY #2 tube 06/09/18 Ointment -] Zonisamide 50 mg PO BID #60 capsule 06/09/18 levETIRAcetam [Keppra -] 750 mg PO BID #60 tablet 06/09/18 Metoprolol Tartrate 25 mg PO BID 08/17/18 Active Medications Acetaminophen (Tylenol -) 500 mg PO Q6H PRN PRN Reason: FEVER Alprazolam (Xanax -) 0.5 mg PO TID [facility] Last Admin: 08/18/18 05:13 Dose: Not Given Aspirin (Asa -) 81 mg PO DAILY [facility] Last Admin: 08/18/18 10:14 Dose: 81 mg Ceftriaxone Sodium 1 gm/ (Dextrose) 50 mls @ 100 mls/hr IVPB DAILY [facility]; Protocol Last Admin: 08/18/18 10:13 Dose: 100 mls/hr Sodium Chloride (Normal Saline -) 1,000 mls @ 42 mls/hr IV ASDIR [facility] Stop: 08/18/18 15:49 Last Admin: 08/17/18 19:18 Dose: 42 mls/hr Levetiracetam (Keppra -) 750 mg PO BID [facility] Last Admin: 08/18/18 10:14 Dose: 750 mg Metoprolol Tartrate (Lopressor -) 25 mg PO BID [facility] Last Admin: 08/18/18 10:14 Dose: 25 mg Mupirocin (Bactroban 2% Ointment -) 1 applic TP DAILY [facility] Senna (Senna -) 3 tab PO HS [facility] Last Admin: 08/17/18 22:16 Dose: 3 tab Zonisamide (Zonegran -) 100 mg PO DAILY [facility] Last Admin: 08/17/18 18:04 Dose: Not Given Laboratory Results - last 24 hr 08/17/18 08/17/18 08/17/18 12:47 12:47 12:47 WBC 6.0 RBC 4.50 Hgb 12.8 Hct 38.9 D MCV 86.4 MCH 28.3 MCHC 32.8 RDW 14.3 Plt Count 185 D MPV 7.9 Absolute Neuts (auto) 3.1 Neutrophils % 51.2 Lymphocytes % 33.3 D Monocytes % 10.6 H Eosinophils % 3.9 Basophils % 1.0 Nucleated RBC % 0 PT with INR INR PTT (Actin FS) Sodium 140 Potassium 4.4 Chloride 110 H Carbon Dioxide 21 Anion Gap 9 BUN 12 Creatinine 0.8 Creat Clearance w eGFR 67.85 Random Glucose 86 Lactic Acid 1.4 Calcium 8.6 Phosphorus 3.5 Magnesium 2.2 Total Bilirubin 0.2 AST 15 ALT 14 Alkaline Phosphatase 125 H Total Protein 7.2 Albumin 3.3 L TSH 08/17/18 08/18/18 08/18/18 12:50 07:00 07:00 WBC 4.8 RBC 4.28 Hgb 12.1 Hct 37.0 MCV 86.4 MCH 28.3 MCHC 32.8 RDW 14.5 Plt Count 180 MPV 7.8 Absolute Neuts (auto) 2.2 Neutrophils % 44.9 Lymphocytes % 38.7 Monocytes % 11.5 H Eosinophils % 4.3 Basophils % 0.6 Nucleated RBC % 0 PT with INR 11.20 INR 0.95 PTT (Actin FS) 26.0 Sodium 139 Potassium 4.3 Chloride 113 H Carbon Dioxide 21 Anion Gap 6 L BUN 11 Creatinine 0.8 Creat Clearance w eGFR 67.85 Random Glucose 113 H Lactic Acid Calcium 8.6 Phosphorus 3.2 Magnesium 2.4 Total Bilirubin 0.3 AST 13 L ALT 12 L Alkaline Phosphatase 108 Total Protein 6.6 Albumin 2.9 L TSH 1.53 ASSESSMENT AND PLAN: 88 yof with PMHx of dementia (Non verbal non ambulatory at baseline), CAD, HTN , seizure disorder, recurrent UTIs, recent admission with toe cellulitis admitted with lower uncomplicated UTI needing IV antibiotics. -Lower uncomplicated E. Coli UTI -Seizure disorder -Advanced dementia -CAD -HTN -Recent toe cellulitis Plan: ceftriaxone day 2. repeat urine studies sent. Follow up blood cx. Continue home meds. 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 Continue home meds. Hold off on DVTPPX pending PICC plans Dispo d/c home +/- IV abx in 24 hours pending ID input plan discussed with patient and CM. Discussed with aide at bedside.
--- NOTE | 2018-08-18 12:15 | PN ---
Progress Note, Physician History of Present Illness: AWAKE, NON VERBAL NO ACUTE DISTRESS AFEBRILE WBC WNL BC NO GROWTH - Current Medication List Current Medications: Active Medications Acetaminophen (Tylenol -) 500 mg PO Q6H PRN PRN Reason: FEVER Alprazolam (Xanax -) 0.5 mg PO TID [facility] Last Admin: 08/18/18 05:13 Dose: Not Given Aspirin (Asa -) 81 mg PO DAILY [facility] Last Admin: 08/18/18 10:14 Dose: 81 mg Ceftriaxone Sodium 1 gm/ (Dextrose) 50 mls @ 100 mls/hr IVPB DAILY [facility]; Protocol Last Admin: 08/18/18 10:13 Dose: 100 mls/hr Sodium Chloride (Normal Saline -) 1,000 mls @ 42 mls/hr IV ASDIR [facility] Stop: 08/18/18 15:49 Last Admin: 08/17/18 19:18 Dose: 42 mls/hr Levetiracetam (Keppra -) 750 mg PO BID [facility] Last Admin: 08/18/18 10:14 Dose: 750 mg Metoprolol Tartrate (Lopressor -) 25 mg PO BID [facility] Last Admin: 08/18/18 10:14 Dose: 25 mg Mupirocin (Bactroban 2% Ointment -) 1 applic TP DAILY [facility] Senna (Senna -) 3 tab PO HS [facility] Last Admin: 08/17/18 22:16 Dose: 3 tab Zonisamide (Zonegran -) 100 mg PO DAILY [facility] Last Admin: 08/17/18 18:04 Dose: Not Given - Objective Vital Signs: Vital Signs Temperature 98.3 F 08/18/18 08:11 Pulse Rate 79 08/18/18 08:11 Respiratory Rate 20 08/18/18 08:11 Blood Pressure 127/70 08/18/18 08:11 O2 Sat by Pulse Oximetry (%) 97 08/17/18 22:00 Constitutional: Yes: No Distress Eyes: Yes: Conjunctiva Clear Cardiovascular: Yes: Regular Rate and Rhythm, S1, S2 Respiratory: Yes: CTA Bilaterally Gastrointestinal: Yes: Normal Bowel Sounds, Soft. No: Tenderness Edema: No Labs: CBC, BMP 08/18/18 07:00 08/18/18 07:00 INR, PTT INR 0.95 (0.83-1.09) 08/17/18 12:50 Assessment/Plan RECURRENT UTI E COLI (S) 3RD GEN CP SEIZURE DISORDER OBS IF STABLE, SUBSTITUTE VANTIN 100MG PO BID X 7D
[2018-08-18 12:21] LABS: URINE APPEARANCE Clear; URINE BILIRUBIN Negative (NEGATIVE); URINE COLOR Yellow; URINE GLUCOSE (UA) Negative (NEGATIVE); URINE KETONE Negative (NEGATIVE); URINE LEUK ESTERASE 3+ (NEGATIVE); URINE NITRITE Negative (NEGATIVE); URINE PROTEIN Negative (NEGATIVE); URINE UROBILINOGEN 0.2 mg/dL (0.2-1.0)
[2018-08-18 12:54] LABS: EPI CELLS FEW /HPF; URINE BACTERIA FEW /hpf (NEGATIVE); URINE RBC 2 /hpf (0-4); URINE WBC 40 /hpf (0-5)
--- NOTE | 2018-08-18 13:44 | DS ---
Physical Exam: SUBJECTIVE: Patient seen and examined. OBJECTIVE: Vital Signs Period Temp Pulse Resp BP Sys/Tate Pulse Ox Last 24 Hr 98.2 F-98.8 F 78-95 16-20 107-133/60-77 97-97 PHYSICAL EXAM GENERAL: The patient is awake, in no acute distress. HEAD: Normal with no signs of trauma. EYES: PERRL, conjunctiva clear. ENT: oropharynx clear without exudates, moist mucous membranes. NECK: Trachea midline, full range of motion, supple. LUNGS: Breath sounds equal, clear to auscultation bilaterally, no wheezes, no crackles, no accessory muscle use. HEART: Regular rate and rhythm, S1, S2 without murmur, rub or gallop. ABDOMEN: Soft, nontender, nondistended, normoactive bowel sounds, no guarding, no rebound. EXTREMITIES: 2+ pulses, no edema. NEUROLOGICAL: No facial asymmetry, extremities contractured. PSYCH: Not following commands, non verbal. SKIN: Warm, dry, normal turgor. LABS Laboratory Results - last 24 hr 08/17/18 08/18/18 08/18/18 12:50 07:00 07:00 WBC 4.8 RBC 4.28 Hgb 12.1 Hct 37.0 MCV 86.4 MCH 28.3 MCHC 32.8 RDW 14.5 Plt Count 180 MPV 7.8 Absolute Neuts (auto) 2.2 Neutrophils % 44.9 Lymphocytes % 38.7 Monocytes % 11.5 H Eosinophils % 4.3 Basophils % 0.6 Nucleated RBC % 0 PT with INR 11.20 INR 0.95 PTT (Actin FS) 26.0 Sodium 139 Potassium 4.3 Chloride 113 H Carbon Dioxide 21 Anion Gap 6 L BUN 11 Creatinine 0.8 Creat Clearance w eGFR 67.85 Random Glucose 113 H Calcium 8.6 Phosphorus 3.2 Magnesium 2.4 Total Bilirubin 0.3 AST 13 L ALT 12 L Alkaline Phosphatase 108 Total Protein 6.6 Albumin 2.9 L TSH 1.53 Urine Color Urine Appearance Urine pH Ur Specific [place] Urine Protein Urine Glucose (UA) Urine Ketones Urine Blood Urine Nitrite Urine Bilirubin Urine Urobilinogen Ur Leukocyte Esterase Urine WBC (Auto) Urine RBC (Auto) U Epithel Cells (Auto) Urine Bacteria (Auto) 08/18/18 10:45 WBC RBC Hgb Hct MCV MCH MCHC RDW Plt Count MPV Absolute Neuts (auto) Neutrophils % Lymphocytes % Monocytes % Eosinophils % Basophils % Nucleated RBC % PT with INR INR PTT (Actin FS) Sodium Potassium Chloride Carbon Dioxide Anion Gap BUN Creatinine Creat Clearance w eGFR Random Glucose Calcium Phosphorus Magnesium Total Bilirubin AST ALT Alkaline Phosphatase Total Protein Albumin TSH Urine Color Yellow Urine Appearance Clear Urine pH 7.0 Ur Specific [place] 1.015 Urine Protein Negative Urine Glucose (UA) Negative Urine Ketones Negative Urine Blood Trace-intact Urine Nitrite Negative Urine Bilirubin Negative Urine Urobilinogen 0.2 Ur Leukocyte Esterase 3+ H Urine WBC (Auto) 40 Urine RBC (Auto) 2 U Epithel Cells (Auto) Few Urine Bacteria (Auto) Few HOSPITAL COURSE: The following history obtained with the assistance of he patient's aide that was present at bedside. The patient is an 87 yo f w/ PMH of dementia (nonverbal at baseline) seizure disorder, CAD, HTN, dyslipidemia, who was referred to the hospital by her PCP -Dr Harrington for UTI that was diagnosed based on her screening UA that she gets every few months. According to the aid, she has been moaning more and "has flushed cheecks". She hasn't noticed fever, chills, loss of appetite. According to the PCP, the patient is resistant to Macrobid and also gets seizures due to that medications. The patient didn't have fever, no elevation in WBC. She was placed on observation. Over the course of the hospitalization the patient was treated with Zosyn, we continued IV Ceftriaxone 1 mg daily, NS. We also continued her home medications for seizure disorder and HTN. ID was consulted and recommended switching the patient to oral 3rd gen Cephalosporin. She clinically improved and was discharged home on Suprax. Date of Admission:08/17/18 Date of Discharge: 08/18/18 Minutes to complete discharge: 30 Discharge Summary Reason For Visit: UTI Current Active Problems UTI (urinary tract infection) (Acute) Condition: Stable - Instructions Diet, Activity, Other Instructions: Ms Steele, you were admitted to the hospital for urinary tract infection. We were treated you with intravenous antibiotics that were switched to oral. MEDICATIONS: Please continue antibiotic that we prescribed to you for 5 more days starting . No other medications were changed. Your prescription has been sent to [facility] pharmacy on [address] [place] [address] and medication is available for package pick up as discuss with the pharmacist. If you experience fever, chills, abdominal pain, seizures, back pain, chest pain , problems with breathing or any new concerns, come back to Emergency Room or call 911 as soon as possible. Referrals: Braden Harrington MD [Staff Physician] - 1 Week Disposition: VNS/HOME HEALTH CARE - Home Medications Comprehensive Discharge Medication List: Ambulatory Orders Alprazolam 0.5 mg PO TID 12/30/15 Aspirin 81 mg PO DAILY 05/23/18 Sennosides [Senna] 3 tab PO HS 05/23/18 Mupirocin Ointment [Bactroban 2% Ointment -] 1 applic TP DAILY #2 tube 06/09/18 Zonisamide 50 mg PO BID #60 capsule 06/09/18 levETIRAcetam [Keppra -] 750 mg PO BID #60 tablet 06/09/18 Metoprolol Tartrate 25 mg PO BID 08/17/18 Cefpodoxime Proxetil [Vantin (Nf) -] 100 mg PO BID #10 tablet 08/18/18 Problem List - Problems (1) UTI (urinary tract infection) Code(s): N39.0 - URINARY TRACT INFECTION, SITE NOT SPECIFIED Qualifiers: (2) OMEGA (acute kidney injury) Code(s): N17.9 - ACUTE KIDNEY FAILURE, UNSPECIFIED (3) Cellulitis Code(s): L03.90 - CELLULITIS, UNSPECIFIED Qualifiers: Site of cellulitis: extremity Site of cellulitis of extremity: toe Laterality: right Qualified Code(s): L03.031 - Cellulitis of right toe (4) Coronary artery disease Code(s): I25.10 - ATHSCL HEART DISEASE OF [place] CORONARY ARTERY W/O ANG PCTRS (5) Cough Code(s): R05 - COUGH (6) DVT prophylaxis Code(s): [id number] - (7) Dementia Code(s): F03.90 - UNSPECIFIED DEMENTIA WITHOUT BEHAVIORAL DISTURBANCE Qualifiers: Dementia type: unspecified type Dementia behavioral disturbance: without behavioral disturbance Qualified Code(s): F03.90 - Unspecified dementia without behavioral disturbance (8) Diverticulosis Code(s): K57.90 - DVRTCLOS OF INTEST, PART UNSP, W/O PERF OR ABSCESS W/O BLEED (9) Elevated lactic acid level Code(s): E87.2 - ACIDOSIS (10) Fever Code(s): R50.9 - FEVER, UNSPECIFIED Qualifiers: Encounter type: initial encounter (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 - FUNCTIONAL QUADRIPLEGIA (12) Hypertension Code(s): I10 - ESSENTIAL (PRIMARY) HYPERTENSION Qualifiers: Hypertension type: unspecified Qualified Code(s): I10 - Essential (primary ) hypertension (13) Hypokalemia Code(s): E87.6 - HYPOKALEMIA (14) Lactic acidosis Code(s): E87.2 - ACIDOSIS (15) Leukocytosis Code(s): D72.829 - ELEVATED WHITE BLOOD CELL COUNT, UNSPECIFIED (16) Leukocytosis (leucocytosis) Code(s): D72.829 - ELEVATED WHITE BLOOD CELL COUNT, UNSPECIFIED (17) Metabolic encephalopathy Code(s): G93.41 - METABOLIC ENCEPHALOPATHY (18) Pain and swelling of right upper extremity Code(s): M79.601 - PAIN IN RIGHT ARM; M79.89 - OTHER SPECIFIED SOFT TISSUE DISORDERS (19) Recurrent urinary tract infection Code(s): N39.0 - URINARY TRACT INFECTION, SITE NOT SPECIFIED (20) Seizure Code(s): R56.9 - UNSPECIFIED CONVULSIONS (21) Seizure disorder Code(s): G40.909 - EPILEPSY, UNSP, NOT INTRACTABLE, WITHOUT STATUS EPILEPTICUS (22) Sepsis Code(s): A41.9 - SEPSIS, UNSPECIFIED ORGANISM Qualifiers: Sepsis type: sepsis due to unspecified organism Qualified Code(s): A41.9 - Sepsis, unspecified organism (23) Syncope Code(s): R55 - SYNCOPE AND COLLAPSE (24) UTI (lower urinary tract infection) Code(s): N39.0 - URINARY TRACT INFECTION, SITE NOT SPECIFIED This patient is new to me today: Yes Date on this admission: 08/18/18 Emergency Visit: No Critical Care patient: No - Discharge Referral Referred to [facility] Med [facility] No
[2018-08-18] MEDS: ZONISAMIDE 100 MG CAPSULE PO SCH (15:29)
[2018-08-18] MEDS ORDERED: CEFPODOXIME PROXETIL 100 MG TABLET PO ONE (16:00)
[2018-08-18] MEDS: MUPIROCIN 2% TOPICAL OINTMENT 22 GM TUBE TP SCH (18:57)
[2018-08-18] MEDS: SENNOSIDES 8.6MG TABLET (FP) PO SCH (22:01)
[2018-08-19] MEDS: ALPRAZolam 0.25 MG TABLET PO SCH ×2 (05:24→13:27)
[2018-08-19] MEDS ORDERED: DEXTROSE 5%-WATER - 50 ML IVPB ONE (08:26)
[2018-08-19] MEDS ORDERED: cefTRIAXone SODIUM 1 GM VIAL ONE (08:26)
--- NOTE | 2018-08-19 08:30 | PN ---
Physical Exam: SUBJECTIVE: Patient seen and examined, non verbal, comfortable. Unable to assess for further ROS. OBJECTIVE: Vital Signs Period Temp Pulse Resp BP Sys/Tate Pulse Ox Last 24 Hr 95.6 F-98.2 F 85-97 20-20 76-154/44-92 97-97 Intake & Output 08/16/18 08/17/18 08/18/18 08/19/18 23:59 23:59 23:59 23:59 Intake Total 994 200 Output Total 400 Balance 594 200 Weight 114 lb GENERAL: sleeping but easily arousable, no acute distress Chest: poor effort, no rales or wheezing appreciated, positive air entry Abdomen:soft, ND, no voluntary or involuntary guarding or rigidity, no grimacing on exam Extremities: contractures, no edema Neck: soft, supple Laboratory Results - last 24 hr 08/18/18 08/18/18 07:00 10:45 Sodium 139 Potassium 4.3 Chloride 113 H Carbon Dioxide 21 Anion Gap 6 L BUN 11 Creatinine 0.8 Creat Clearance w eGFR 67.85 Random Glucose 113 H Calcium 8.6 Phosphorus 3.2 Magnesium 2.4 Total Bilirubin 0.3 AST 13 L ALT 12 L Alkaline Phosphatase 108 Total Protein 6.6 Albumin 2.9 L TSH 1.53 Urine Color Yellow Urine Appearance Clear Urine pH 7.0 Ur Specific [place] 1.015 Urine Protein Negative Urine Glucose (UA) Negative Urine Ketones Negative Urine Blood Trace-intact Urine Nitrite Negative Urine Bilirubin Negative Urine Urobilinogen 0.2 Ur Leukocyte Esterase 3+ H Urine WBC (Auto) 40 Urine RBC (Auto) 2 U Epithel Cells (Auto) Few Urine Bacteria (Auto) Few Active Medications Generic Name Dose Route Start Last Admin Trade Name Freq PRN Reason Stop Dose Admin Acetaminophen 500 mg 08/17/18 15:59 Tylenol - PO Q6H PRN FEVER Alprazolam 0.5 mg 08/17/18 22:00 08/19/18 05:24 Xanax - PO 0.5 mg TID [facility] Administration Aspirin 81 mg 08/18/18 10:00 08/18/18 10:14 Asa - PO 81 mg DAILY [facility] Administration Ceftriaxone Sodium 1 gm/ 50 mls @ 100 mls/hr 08/18/18 10:00 08/18/18 10:13 Dextrose IVPB 100 mls/hr DAILY [facility] Administration Protocol Levetiracetam 750 mg 08/17/18 22:00 08/18/18 22:01 Keppra - PO 750 mg BID [facility] Administration Metoprolol Tartrate 25 mg 08/17/18 22:00 08/18/18 22:02 Lopressor - PO 25 mg BID [facility] Administration Mupirocin 1 applic 08/18/18 10:00 08/18/18 18:57 Bactroban 2% Ointment - TP Not Given DAILY [facility] Senna 3 tab 08/17/18 22:00 08/18/18 22:01 Senna - PO 3 tab HS [facility] Administration Zonisamide 100 mg 08/17/18 16:15 08/18/18 15:29 Zonegran - PO 100 mg DAILY [facility] Administration ASSESSMENT/PLAN: 88 yof with PMHx of dementia (Non verbal non ambulatory at baseline), CAD, HTN , seizure disorder, recurrent UTIs, recent admission with toe cellulitis admitted with lower uncomplicated UTI needing IV antibiotics. -Lower uncomplicated E. Coli UTI -Seizure disorder -Advanced dementia -CAD -HTN -Recent toe cellulitis Plan: Ceftriaxone day 3. repeat urine studies noted. Afebrile, benign abdominal exam, no clinical concerns. Discussed with Dr. Wei, Suprax 400 mg daily sent to pharmacy and available. Blood cx neg so far. Patient cleared for discharge, order placed, awaiting family Visit type - Emergency Visit Emergency Visit: Yes ED Registration Date: 08/17/18 Care time: The patient presented to the Emergency Department on the above date and was hospitalized for further evaluation of their emergent condition. - New Patient This patient is new to me today: No - Critical Care Critical Care patient: No - Discharge Referral Referred to [facility] Med P.C.: No
[2018-08-19] MEDS: CEFTRIAXONE 1 GM in DEXTROSE 5%-WATER - 50 ML IVPB SCH (09:04)
[2018-08-19] MEDS: ZONISAMIDE 100 MG CAPSULE PO SCH (09:04)
[2018-08-19] MEDS: levETIRAcetam 250 MG TABLET (FP) PO SCH (09:04)
[2018-08-19] MEDS: METOPROLOL TARTRATE 25 MG TABLET (FP) PO SCH (09:04)
[2018-08-19] MEDS: MUPIROCIN 2% TOPICAL OINTMENT 22 GM TUBE TP SCH (09:05)
[2018-08-19 18:35] VITALS: BP 109/69; PULSE 83; TEMP 97.4
== END 2018-08-19 19:14 | disposition home health service (06) ==
LOC: JER 11:12 → JERBED 14:08 → J7W 16:34
PROVIDERS: ADMIT Hospitalist; ATTEND Hospitalist
PROC: 3E03329 Introduction of Other Anti-infective into Peripheral Vein, Percutaneous Approach (ICD-10-PCS; principal; 2018-08-17)
PROC: 3E0337Z Introduction of Electrolytic and Water Balance Substance into Peripheral Vein, Percutaneous Approach (ICD-10-PCS; 2018-08-17)
DX: N39.0 Urinary tract infection, site not specified (principal); N17.9 Acute kidney failure, unspecified; L03.031 Cellulitis of right toe; I10 Essential (primary) hypertension; I25.10 Atherosclerotic heart disease of native coronary artery without angina pectoris; E78.5 Hyperlipidemia, unspecified; F03.90 Unspecified dementia, unspecified severity, without behavioral disturbance, psychotic disturbance, mood disturbance, and anxiety; G40.909 Epilepsy, unspecified, not intractable, without status epilepticus; R05 Cough; K57.90 Diverticulosis of intestine, part unspecified, without perforation or abscess without bleeding; E87.2 Acidosis; R53.2 Functional quadriplegia; Z74.01 Bed confinement status; E87.6 Hypokalemia; D72.829 Elevated white blood cell count, unspecified; G93.41 Metabolic encephalopathy; B96.20 Unspecified Escherichia coli [E. coli] as the cause of diseases classified elsewhere; Z87.440 Personal history of urinary (tract) infections; Z79.82 Long term (current) use of aspirin; Z88.8 Allergy status to other drugs, medicaments and biological substances
CPT/HCPCS: 36415; 71045-TC-FY; 80053; 81003; 83605; 83735; 84100; 84443; 85025; 85610; 85730; 87040; 93005; 93010; 96361; 96365; 96375; 99283-25; G0378; J7030